=== PATIENT | female | born 1945 | race Caucasian/White ===

== ENCOUNTER → 2020-01-30 13:41 | Outpatient (BNVA) | payer MEDICARE, SELFPAY | PROVIDERS: PCP Internal Medicine; Referring Provider Internal Medicine; Visit Provider Internal Medicine | DX: I48.0 Paroxysmal atrial fibrillation (principal); Z51.81 Encounter for therapeutic drug level monitoring; Z79.01 Long term (current) use of anticoagulants | CPT/HCPCS: 85610 ==

== ENCOUNTER 2020-01-30 18:47 | Outpatient (REF) | payer MEDICARE, SELFPAY | END 2020-01-30 18:48 | disposition home or self-care (01) | LOC: HO.LNP 18:47 | PROVIDERS: Visit Provider Internal Medicine | DX: Z79.01 Long term (current) use of anticoagulants (principal) ==

== ENCOUNTER → 2020-02-27 13:56 | Outpatient (BNVA) | payer MEDICARE, SELFPAY | PROVIDERS: PCP Internal Medicine; Referring Provider Internal Medicine; Visit Provider Internal Medicine | DX: I48.0 Paroxysmal atrial fibrillation (principal); Z51.81 Encounter for therapeutic drug level monitoring; Z79.01 Long term (current) use of anticoagulants | CPT/HCPCS: 85610; 99211 ==

== ENCOUNTER → 2020-03-09 14:19 | Outpatient (BNVA) | payer MEDICARE, SELFPAY | PROVIDERS: PCP Internal Medicine; Visit Provider Internal Medicine | DX: I48.0 Paroxysmal atrial fibrillation (principal); Z51.81 Encounter for therapeutic drug level monitoring; Z79.01 Long term (current) use of anticoagulants | CPT/HCPCS: 85610; 99211 ==

== ENCOUNTER → 2020-03-15 14:07 | Outpatient (BNVA) | payer MEDICARE, SELFPAY | PROVIDERS: PCP Internal Medicine; Referring Provider Internal Medicine; Visit Provider Internal Medicine Cardiovascular Disease | DX: I48.0 Paroxysmal atrial fibrillation (principal); Z86.79 Personal history of other diseases of the circulatory system; Z79.01 Long term (current) use of anticoagulants; Z79.899 Other long term (current) drug therapy; Z45.018 Encounter for adjustment and management of other part of cardiac pacemaker | CPT/HCPCS: 93005; 99212 ==

== ENCOUNTER → 2020-03-23 14:14 | Outpatient (BNVA) | payer MEDICARE, SELFPAY | PROVIDERS: PCP Internal Medicine; Referring Provider Internal Medicine; Visit Provider Internal Medicine | DX: I48.0 Paroxysmal atrial fibrillation (principal); Z51.81 Encounter for therapeutic drug level monitoring; Z79.01 Long term (current) use of anticoagulants | CPT/HCPCS: 85610; 99211 ==

== ENCOUNTER → 2020-04-20 14:02 | Outpatient (BNVA) | payer MEDICARE, SELFPAY | PROVIDERS: PCP Internal Medicine; Visit Provider Internal Medicine | DX: I48.0 Paroxysmal atrial fibrillation (principal); Z51.81 Encounter for therapeutic drug level monitoring; Z79.01 Long term (current) use of anticoagulants | CPT/HCPCS: 85610; 99211 ==

== ENCOUNTER → 2020-05-18 14:02 | Outpatient (BNVA) | payer MEDICARE, SELFPAY | PROVIDERS: PCP Internal Medicine; Visit Provider Internal Medicine | DX: I48.0 Paroxysmal atrial fibrillation (principal); Z51.81 Encounter for therapeutic drug level monitoring; Z79.01 Long term (current) use of anticoagulants | CPT/HCPCS: 85610; 99211 ==

== ENCOUNTER → 2020-06-01 14:09 | Outpatient (BNVA) | payer MEDICARE, SELFPAY | PROVIDERS: PCP Internal Medicine; Visit Provider Internal Medicine | DX: I48.0 Paroxysmal atrial fibrillation (principal); Z51.81 Encounter for therapeutic drug level monitoring; Z79.01 Long term (current) use of anticoagulants | CPT/HCPCS: 85610; 99211 ==

== ENCOUNTER → 2020-06-28 14:04 | Outpatient (BNVA) | payer MEDICARE, SELFPAY | PROVIDERS: PCP Internal Medicine; Visit Provider Internal Medicine | DX: I48.0 Paroxysmal atrial fibrillation (principal); Z51.81 Encounter for therapeutic drug level monitoring; Z79.01 Long term (current) use of anticoagulants | CPT/HCPCS: 85610; 99211 ==

== ENCOUNTER → 2020-07-02 13:37 | Outpatient (BNVA) | payer MEDICARE, SELFPAY | PROVIDERS: PCP Internal Medicine; Visit Provider Internal Medicine | DX: I48.0 Paroxysmal atrial fibrillation (principal); Z51.81 Encounter for therapeutic drug level monitoring; Z79.01 Long term (current) use of anticoagulants | CPT/HCPCS: 85610; 99211 ==

== ENCOUNTER → 2020-07-13 13:57 | Outpatient (BNVA) | payer MEDICARE, SELFPAY | PROVIDERS: PCP Internal Medicine; Visit Provider Internal Medicine | DX: I48.0 Paroxysmal atrial fibrillation (principal); Z79.01 Long term (current) use of anticoagulants; Z51.81 Encounter for therapeutic drug level monitoring | CPT/HCPCS: 85610; 99211 ==

== ENCOUNTER → 2020-07-20 13:50 | Outpatient (BNVA) | payer MEDICARE, SELFPAY | PROVIDERS: PCP Internal Medicine; Visit Provider Internal Medicine | DX: I48.0 Paroxysmal atrial fibrillation (principal); Z51.81 Encounter for therapeutic drug level monitoring; Z79.01 Long term (current) use of anticoagulants | CPT/HCPCS: 85610; 99211 ==

== ENCOUNTER 2020-07-22 10:29 | Outpatient (REF) | payer MEDICARE, SELFPAY ==
[2020-07-22 10:54] LABS: MANUAL DIFF FLAG NO
[2020-07-22 11:03] LABS: Basophils Absolute Auto 0.1 X10*3/uL (0.0-0.2); Basophils Percent Auto 1.1 % (0-2); Eosinophils Absolute Auto 0.3 X10*3/uL (0.0-0.4); Eosinophils Percent Auto 5.6 % (0-4); Hematocrit 40.5 % (37-47); Hemoglobin 13.1 g/dl (12.0-16.0); Imm Gran Abs Auto 0.01 X10*3/uL (0.00-0.03); Imm Gran Pct Auto 0.2 % (0.0-0.4); Lymphocytes Percent Auto 43.6 % (20-40); Mean Corpuscular HGB Conc 32.3 g/dl (31.0-35.0); Mean Corpuscular Hemoglobin 30.9 pg (27.0-33.0); Mean Corpuscular Volume 95.5 fL (80-98); Mean Platelet Volume 8.4 fL (9.4-12.3); Monocytes Absolute Auto 0.3 X10*3/uL (0.1-1.2); Monocytes Percent Auto 6.7 % (2-11); Neutrophils Percent Auto 42.8 % (45-73); Platelet Count 260 X10*3/uL (160-400); Red Blood Count 4.24 X10*6/uL (4.20-5.50); Red Cell Distribution Width 13.2 % (11.0-16.0); White Blood Count 4.7 X10*3/uL (4.8-10.8)
[2020-07-22 11:31] LABS: Alanine Aminotransferase 19 U/L (0-31); Albumin Level 4.1 g/dL (3.5-5.0); Alkaline Phosphatase 76 U/L (39-117); Anion Gap 13 (12-20); Aspartate Amino Transferase 23 U/L (5-31); Bilirubin Total 0.4 mg/dL (0.0-1.0); Blood Urea Nitrogen 18 mg/dL (9-16); Calcium 8.8 mg/dL (8.4-10.2); Carbon Dioxide 30 mmol/L (22-29); Chloride 104 mmol/L (96-108); Cholesterol 213 mg/dL; Estimated Glomerular Filt Rate > 60; Glucose Random 104 mg/dL (60-115); HDL Cholesterol 94 mg/dL; LDL Cholesterol Calculated 103 mg/dl; Potassium 4.5 mmol/L (3.3-5.1); Sodium 142 mmol/L (135-145); Total Protein 6.5 g/dL (6.5-8.0); Triglycerides 80 mg/dL
[2020-07-22 11:44] LABS: Free T4 (Free Thyroxine) 1.01 ng/dL (0.71-1.85); Thyroid Stimulating Hormone 3.84 uIU/mL (0.32-4.0); Vitamin D 25-OH Total 77.3 ng/mL (>30)
[2020-07-22 12:03] LABS: Vitamin B12 792 pg/mL (200-900)
== END 2020-07-22 10:30 | disposition home or self-care (01) ==
LOC: HO.LAB 10:29
PROVIDERS: PCP Internal Medicine; Visit Provider Internal Medicine
DX: E78.00 Pure hypercholesterolemia, unspecified (principal)
CPT/HCPCS: 36415; 80053; 80061; 82306; 82607; 82746; 84439; 84443; 85025

== ENCOUNTER → 2020-08-03 14:04 | Outpatient (BNVA) | payer MEDICARE, SELFPAY | PROVIDERS: PCP Internal Medicine; Visit Provider Internal Medicine | DX: I48.0 Paroxysmal atrial fibrillation (principal); Z79.01 Long term (current) use of anticoagulants; Z51.81 Encounter for therapeutic drug level monitoring | CPT/HCPCS: 85610; 99211 ==

== ENCOUNTER → 2020-08-20 14:23 | Outpatient (BNVA) | payer MEDICARE, SELFPAY | PROVIDERS: PCP Internal Medicine; Visit Provider Internal Medicine | DX: I48.0 Paroxysmal atrial fibrillation (principal); Z79.01 Long term (current) use of anticoagulants; Z51.81 Encounter for therapeutic drug level monitoring | CPT/HCPCS: 85610; 99211 ==

== ENCOUNTER → 2020-09-03 14:03 | Outpatient (BNVA) | payer MEDICARE, SELFPAY | PROVIDERS: PCP Internal Medicine; Visit Provider Internal Medicine | DX: I48.0 Paroxysmal atrial fibrillation (principal); Z79.01 Long term (current) use of anticoagulants; Z51.81 Encounter for therapeutic drug level monitoring | CPT/HCPCS: 85610; 99211 ==

== ENCOUNTER → 2020-09-06 09:38 | Outpatient (BNVA) | payer MEDICARE, SELFPAY | PROVIDERS: PCP Internal Medicine; Referring Provider Internal Medicine; Visit Provider Internal Medicine Cardiovascular Disease | DX: Z45.018 Encounter for adjustment and management of other part of cardiac pacemaker (principal); I48.0 Paroxysmal atrial fibrillation | CPT/HCPCS: 93005; 99212 ==

== ENCOUNTER → 2020-09-21 13:56 | Outpatient (BNVA) | payer MEDICARE, SELFPAY | PROVIDERS: PCP Internal Medicine; Visit Provider Internal Medicine | DX: I48.0 Paroxysmal atrial fibrillation (principal); Z51.81 Encounter for therapeutic drug level monitoring; Z79.01 Long term (current) use of anticoagulants | CPT/HCPCS: 85610; 99211 ==

== ENCOUNTER → 2020-10-05 11:23 | Outpatient (BNVA) | payer MEDICARE, SELFPAY | PROVIDERS: PCP Internal Medicine; Visit Provider Internal Medicine | DX: I48.0 Paroxysmal atrial fibrillation (principal); Z51.81 Encounter for therapeutic drug level monitoring; Z79.01 Long term (current) use of anticoagulants | CPT/HCPCS: 85610; 99211 ==

== ENCOUNTER → 2020-10-19 11:09 | Outpatient (BNVA) | payer MEDICARE, SELFPAY | PROVIDERS: PCP Internal Medicine; Visit Provider Internal Medicine | DX: I48.0 Paroxysmal atrial fibrillation (principal); Z51.81 Encounter for therapeutic drug level monitoring; Z79.01 Long term (current) use of anticoagulants | CPT/HCPCS: 85610; 99211 ==

== ENCOUNTER → 2020-10-28 07:43 | Outpatient (REF) | payer MEDICARE, SELFPAY ==
--- NOTE | ~2020-10-28 | NM_ITS ---
Myocardial perfusion study Indication: Nonsustained ventricular tachycardia to evaluate for myocardial ischemia Technique: The patient was brought in for a Lexiscan perfusion study on 10/28/2020. Patient performed low-level exercise and was injected 0.4 mg of Lexiscan intravenously. Within a minute of injection, 25 mCi of sestamibi was given intravenously. Images were obtained using the SPECT gamma camera interlaced with the gating device. Images were obtained in supine position. Resting perfusion study was performed on 11/02/2020. Patient was administered 25 mCi of sestamibi intravenously at rest. Images were then obtained in supine position. Images obtained with and without CT attenuation. Total DLP 80 mGy-cm. Images were processed with the software and compared side to side in short axis, horizontal long axis and vertical long axis views. Findings: The stress perfusion study showed nonattenuated images show mildly reduced uptake in the distal anterior and apex of the LV myocardium. Attenuation corrected images show mildly reduced uptake in the distal anterior and apex of the LV myocardium.. The gated study shows normal LV systolic function with calculated LVEF of 67%. LV cavity is normal in size. The gated study shows normal systolic wall thickening and contraction of segments. Resting study shows nonattenuated images show moderately reduced uptake in the distal anterior and moderately reduced uptake in the apex of the LV myocardium. Attenuation corrected images show mildly reduced uptake in the distal anterior and apex of the LV myocardium.. Gating at rest reveals normal systolic wall motion with ejection fraction at 59%. The findings are consistent with no clear reversible defect suggestive of ischemia. Fixed distal anterior and apical defect most likely due to attenuation artifact. Suggestive normal myocardial perfusion. NM/NM bryce perf SPECT rest & str Impression: 1. Myocardial perfusion imaging study shows likely normal myocardial perfusion 2. Gated LVEF is 67% 3. Transient ischemic dilatation not present EKG is nondiagnostic for ischemia
--- NOTE | 2020-10-28 07:46 | CA_ITS ---
Transthoracic Echocardiogram Patient (Last, First, Middle): Erika Melchor R Gender: Female Date of : 1945 Age: 75 Procedure Date: 10/28/2020 Procedure Type: Transthoracic Echocardiogram Location: OP Height: 172.72 cm Weight: 71.67 kg BSA: 1.85 m2 Heart Rate: bpm BP: 118 / 75 mmHg Agronomy Research Manager: HEATH Referring MD: Zackary Kingston MD Uniform Room Attendant: Zackary Kingston MD Symptoms: I48.0 - Paroxysmal atrial fibrillation Study Quality: Good ECG Rhythm: Sinus Conclusions: - 1. Normal LV systolic function with impaired relaxation filling pattern 2. Normal cardiac valvular Doppler 3. Normal RV systolic pressure 4. No pericardial effusion Findings Left Ventricle Normal left ventricular size, thickness, and systolic function. The visually estimated ejection fraction is between 60-65%. Spectral Doppler is indicative of an impaired relaxation filling pattern. E/E prime ratio is between 8 and 15 consistent with indeterminate filling pressures. Right Ventricle Normal right ventricular cavity size and systolic function. There is a pacemaker wire seen in the right ventricle. Atria Both atria are normal in size. There is lipomatous hypertrophy of the interatrial septum. There is no evidence of interatrial shunt. A pacemaker wire is identified in the right atrium. Aortic Valve There is mild calcification of the aortic valve. There is no aortic valve stenosis. There is no aortic valve regurgitation. Mitral Valve There is mild anterior and posterior mitral leaflet thickening. There is trace mitral valve regurgitation. There is no mitral valve stenosis. Pulmonic Valve The pulmonic valve was not well visualized. Tricuspid Valve Likely normal tricuspid valve structure and function. There is mild tricuspid valve regurgitation. The right ventricular systolic pressure is normal. The right ventricular systolic pressure is 18 mmHg. Normal right atrial pressure. There is no evidence of pulmonary hypertension. Great Vessels All visible segments of the aorta are normal in size. The pulmonary artery was not well visualized. Venous The inferior vena cava is normal in size and collapses greater than 50% with inspiration. Pericardium/Pleural There is no evidence of pericardial effusion. Prior Study Comparison No significant change compared to prior study dated: 02/26/2019. Measurements 2D Linear Measurements IVSd: 0.92 0.6-0.9/0.6-1.0 cm LVIDd: 4.26 3.9-5.3/4.2-5.9 cm LVIDd Index: 2.30 2.4-3.2/2.2-3.1 cm/m2 LVIDs: 2.98 2.0-3.6 cm LVPWd: 1.11 0.7-1.1 cm Ao Root: 3.10 2.1-3.5 cm LA Diam: 2.80 2.7-3.8/3.0-4.0 cm LAIDs Index: 1.51 1.5-2.3 cm/m2 LV Mass: 178.66 67-162/88-224 g LV Mass Index: 96.57 43-95/49-115 g/m2 LVOT Diam: 2.00 3.0+(-)1.3 cm 2D Systolic Function EF 4C: 62.10 >55% EF 2C: 57.80 >55% EF BiP: 58.80 >55% Mitral Valve MV Pk E: 0.56 MV PK A: 0.93 MV Decel Time: 254.00 E/A: 0.60 E'Lateral: 5.55 E'Medial: 5.55 E/E' Med: 10.10 E/E' Lat: 10.10 PHT: 74.00 MVA PHT: 2.97 Decel [place]: 2.21 Aortic Valve AoV Pk Mathew: 1.38 AoV Pk Grad: 8.00 LVOT LVOT Pk Mathew: 1.06 LVOT Mn Mathew: 0.62 LVOT VTI: 0.21 LVOT Pk Grad: 4.00 LVOT Mn Grad: 2.00 LVOT Diam: 2.00 LVOT Area: 3.14 Diastolic Function MV Pk E: 0.56 MV Pk A: 0.93 E/A: 0.60 E'Medial: 5.55 E/E' Med: 10.10 E' Laterial: 5.55 E/E' Lat: 10.10 Tricuspid Valve TR Pk Mathew: 1.95 TR Pk Grad: 15.00 RA Press: 3.00 RVSP: 18.00 Great Vessels Aorta Ao Root-2D: 3.10 2.0-3.7 cm Ao Asc: 3.10 2.1-3.4 cm Ao Arch: 2.70 Updated in Other Vendor System with Status of Final Zackary Kingston MD electronically signed on 10/29/2020 1:49:42 PM with status of Final
--- NOTE | 2020-10-28 07:47 | CA_ITS ---
Acquisition Time: 2020-10-28 08:34:43 Total Exercise Time: 00:02:00 Test Indications: Screening for CAD Medications: SEE H Protocol: LEXISCAN Max HR: 096 BPM 66% of Pred: 145 BPM Max BP: 124/072 mmHG Max Work Load: 1.0 METS Pharmacological stress test with Lexiscan injection, while sitting and kicking her legs, without anginal symptoms, with isolated PVCs and PACs and one ventricular cuplet, with normotensive response to injection, with nondiagnostic EKG for ischemia. Nuclear images pending. Test reviewed with Dr Kingston. Referred By: Christel Clark Overread By: CHRISTEL CLARK
== END ==
LOC: HO.CARD 07:43
PROVIDERS: Visit Provider Nurse Practitioner Family
DX: I48.0 Paroxysmal atrial fibrillation (principal); I47.2 Ventricular tachycardia
CPT/HCPCS: 78452; 93017; 93306; A9500; J0280; J2785

== ENCOUNTER → 2020-11-09 11:10 | Outpatient (BNVA) | payer MEDICARE, SELFPAY | PROVIDERS: PCP Internal Medicine; Visit Provider Internal Medicine | DX: I48.0 Paroxysmal atrial fibrillation (principal); Z51.81 Encounter for therapeutic drug level monitoring; Z79.01 Long term (current) use of anticoagulants | CPT/HCPCS: 85610; 99211 ==

== ENCOUNTER → 2020-11-23 11:23 | Outpatient (BNVA) | payer MEDICARE, SELFPAY | PROVIDERS: PCP Internal Medicine; Visit Provider Internal Medicine | DX: I48.0 Paroxysmal atrial fibrillation (principal); Z51.81 Encounter for therapeutic drug level monitoring; Z79.01 Long term (current) use of anticoagulants | CPT/HCPCS: 85610; 99211 ==

== ENCOUNTER → 2020-12-14 11:20 | Outpatient (BNVA) | payer MEDICARE, SELFPAY | PROVIDERS: PCP Internal Medicine; Visit Provider Internal Medicine | DX: I48.0 Paroxysmal atrial fibrillation (principal); Z51.81 Encounter for therapeutic drug level monitoring; Z79.01 Long term (current) use of anticoagulants | CPT/HCPCS: 85610; 99211 ==

== ENCOUNTER 2020-12-17 13:45 | Outpatient (REF) | payer MEDICARE, SELFPAY ==
--- NOTE | ~2020-12-17 | MM_ITS ---
EXAMINATION: MM SCREENING DIGITAL BREAST TOMOSYNTHESIS, BILATERAL CLINICAL INFORMATION: Screening. Asymptomatic. The lifetime risk of breast cancer based on the Tyrer-Cuzick Model is 7%. COMPARISON: Mammography: 10/08/2018, 09/07/2017, 08/22/2016 TECHNIQUE: Digital breast tomosynthesis is performed in both the craniocaudal and mediolateral oblique views along with computer-aided detection (CAD). Synthesized 2D images are generated from the tomosynthesis. FINDINGS: The breasts are almost entirely fatty (ACR BI-RADS breast composition Category a). There are no significant masses, abnormal calcifications, or other abnormalities. Pacemaker generator overlies and partly obscures left axilla on MLO view. There is a dermal lesion again noted overlying lower inner quadrant right breast. No significant changes. MM/MM tomosynthesis screening BI IMPRESSION: No mammographic evidence of malignancy. ASSESSMENT: BI-RADS 2: Benign RECOMMENDATION: Routine annual mammography screening. This patient's information was entered into a reminder system with a target due date for their next mammogram.
--- NOTE | ~2020-12-17 | MM_ITS ---
EXAMINATION: BONE DENSITOMETRY CLINICAL INDICATION: Other specified disorders of bone density and structure. COMPARISON: Previous BD dated 08/22/2016 and baseline BD dated 01/23/2013. TECHNIQUE: Using a [employer] DXA System (software version: 13.1) manufactured by [employer], dual-energy x-ray absorptiometry was performed of the spine and left hip. The images are of good technical quality. Summary results are attached. FINDINGS: AP SPINE L1-L2 (excluding L3 and L4): The data of L1-L4 has been changed to exclude the L3 and L4 vertebral bodies, because degenerative changes at these levels may cause overestimation of lumbar spine density. Current: BMD 0.982 g/cm2, Z-score 0.0, T-score -1.5, osteopenia, 1.9% decrease from previous, 6.2% decrease from baseline (<5% change is not significant). Prior: BMD 1.001 g/cm2. Baseline: BMD 1.047 g/cm2. LEFT FEMUR, NECK: Current: BMD 0.805 g/cm2, Z-score 0.1, T-score -1.7, osteopenia. Prior: BMD 0.807 g/cm2. Baseline: BMD 0.850 g/cm2. LEFT FEMUR, TOTAL: Current: BMD 0.842 g/cm2, Z-score 0.3, T-score -1.3, osteopenia, 1.9% increase from previous, 3.1% increase from baseline (<5% change is not significant). Prior: BMD 0.826 g/cm2. Baseline: BMD 0.817 g/cm2. IDENTIFIED RISK FACTORS: Menopause. HISTORY OF FRACTURE: None listed. MEDICATIONS: Vitamin D. MM/XR DEXA axial skeleton IMPRESSION: 1. DIAGNOSIS: Osteopenia based on the lowest T-score value of -1.7 in the femoral neck applying World Health Organization criteria. 2. 10-YEAR FRACTURE RISK PREDICTION, FRAX: Major osteoporotic fracture (clinical spine, forearm, hip or shoulder) 12.5%. Hip fracture 2.9%. 3. Treatment Recommendations: NOF guidelines recommend consideration for treatment in postmenopausal women and men age 50 and older presenting with the following: -A hip or vertebral (clinical or morphometric) fracture. -T-score less than or equal to -2.5 at the femoral neck or spine after appropriate evaluation to exclude secondary causes. -Low bone mass at the hip or spine and a 10-year fracture probability by FRAX of greater than or equal to 3% for hip fracture or greater than or equal to 20% for major osteoporotic fracture based on the [place] adapted WHO algorithm. 4. Other Recommendations: All treatment decisions require clinical judgment and consideration of individual patient factors, including patient preferences, comorbidities, previous drug use, risk factors not captured in the FRAX model (e.g. frailty, falls, vitamin D deficiency, increased bone turnover, interval significant decline in bone density) and possible under or overestimation of fracture risk by FRAX. Additional medical evaluation for secondary cause of low bone mineral density may be appropriate. FUTURE SCAN RECOMMENDATION: People with diagnosed cases of osteoporosis or at high risk for fracture should have regular bone mineral density tests. For patients eligible for Medicare, routine testing is allowed once every 2 years. The testing frequency can be increased to one year for patients who have rapidly progressing disease, those who are receiving or discontinuing medical therapy to restore bone mass, or have additional risk factors.
== END 2020-12-17 13:46 | disposition home or self-care (01) ==
LOC: HO.MAMMO 13:45
PROVIDERS: Visit Provider Internal Medicine
DX: Z12.31 Encounter for screening mammogram for malignant neoplasm of breast (principal); Z13.820 Encounter for screening for osteoporosis; M85.80 Other specified disorders of bone density and structure, unspecified site; Z78.0 Asymptomatic menopausal state; Z79.899 Other long term (current) drug therapy
CPT/HCPCS: 77063; 77067; 77080

== ENCOUNTER → 2021-01-11 11:25 | Outpatient (BNVA) | payer MEDICARE, SELFPAY | PROVIDERS: PCP Internal Medicine; Visit Provider Internal Medicine | DX: I48.0 Paroxysmal atrial fibrillation (principal); Z51.81 Encounter for therapeutic drug level monitoring; Z79.01 Long term (current) use of anticoagulants | CPT/HCPCS: 85610; 99211 ==

== ENCOUNTER 2021-02-01 12:42 | Outpatient (REF) | payer MEDICARE, SELFPAY ==
[2021-02-01 12:59] LABS: MANUAL DIFF FLAG NO
[2021-02-01 13:29] LABS: Basophils Percent Auto 0.7 % (0-2); Eosinophils Absolute Auto 0.1 X10*3/uL (0.0-0.4); Eosinophils Percent Auto 3.2 % (0-4); Hematocrit 42.1 % (37-47); Hemoglobin 13.6 g/dl (12.0-16.0); Imm Gran Abs Auto 0.01 X10*3/uL (0.00-0.03); Imm Gran Pct Auto 0.2 % (0.0-0.4); Lymphocytes Absolute Auto 1.4 X10*3/uL (1.2-4.9); Lymphocytes Percent Auto 31.5 % (20-40); Mean Corpuscular HGB Conc 32.3 g/dl (31.0-35.0); Mean Corpuscular Volume 95.9 fL (80-98); Mean Platelet Volume 8.9 fL (9.4-12.3); Monocytes Absolute Auto 0.5 X10*3/uL (0.1-1.2); Monocytes Percent Auto 11.9 % (2-11); Neutrophils Absolute Auto 2.3 X10*3/uL (2.0-8.3); Neutrophils Percent Auto 52.5 % (45-73); Platelet Count 242 X10*3/uL (160-400); Red Blood Count 4.39 X10*6/uL (4.20-5.50); Red Cell Distribution Width 13.2 % (11.0-16.0); White Blood Count 4.4 X10*3/uL (4.8-10.8)
[2021-02-01 13:53] LABS: Alanine Aminotransferase 24 U/L (0-31); Albumin Level 4.2 g/dL (3.5-5.0); Alkaline Phosphatase 82 U/L (39-117); Anion Gap 12 (12-20); Aspartate Amino Transferase 25 U/L (5-31); Bilirubin Total 0.5 mg/dL (0.0-1.0); Blood Urea Nitrogen 13 mg/dL (9-16); Calcium 9.4 mg/dL (8.4-10.2); Carbon Dioxide 31 mmol/L (22-29); Chloride 103 mmol/L (96-108); Cholesterol 208 mg/dL; Estimated Glomerular Filt Rate > 60; Glucose Random 106 mg/dL (60-115); HDL Cholesterol 87 mg/dL; LDL Cholesterol Calculated 105 mg/dl; Potassium 4.6 mmol/L (3.3-5.1); Sodium 141 mmol/L (135-145); Total Protein 6.7 g/dL (6.5-8.0); Triglycerides 82 mg/dL
[2021-02-01 13:57] LABS: B Type Natriuretic Peptide 41 pg/mL (<100)
[2021-02-01 14:12] LABS: Free T4 (Free Thyroxine) 0.95 ng/dL (0.71-1.85); Thyroid Stimulating Hormone 2.53 uIU/mL (0.32-4.0); Vitamin D 25-OH Total 77.8 ng/mL (>30)
== END 2021-02-01 12:43 | disposition home or self-care (01) ==
LOC: HO.LAB 12:42
PROVIDERS: PCP Internal Medicine; Visit Provider Internal Medicine
DX: I48.0 Paroxysmal atrial fibrillation (principal); E78.00 Pure hypercholesterolemia, unspecified; M25.512 Pain in left shoulder
CPT/HCPCS: 36415; 80053; 80061; 82306; 83880; 84439; 84443; 85025

== ENCOUNTER → 2021-02-09 11:43 | Outpatient (BNVA) | payer MEDICARE, SELFPAY | PROVIDERS: PCP Internal Medicine; Visit Provider Internal Medicine | DX: I48.0 Paroxysmal atrial fibrillation (principal); Z51.81 Encounter for therapeutic drug level monitoring; Z79.01 Long term (current) use of anticoagulants | CPT/HCPCS: 85610; 99211 ==

== ENCOUNTER → 2021-03-09 11:21 | Outpatient (BNVA) | payer MEDICARE, SELFPAY | PROVIDERS: PCP Internal Medicine; Visit Provider Internal Medicine | DX: I48.0 Paroxysmal atrial fibrillation (principal); Z51.81 Encounter for therapeutic drug level monitoring; Z79.01 Long term (current) use of anticoagulants | CPT/HCPCS: 85610; 99211 ==

== ENCOUNTER 2021-03-14 10:50 | Outpatient (REF) | payer MEDICARE, SELFPAY ==
[2021-03-14 12:16] LABS: Hematocrit 38.7 % (37.0-47.0); Hemoglobin 12.5 g/dl (12.0-16.0); Mean Corpuscular HGB Conc 32.3 g/dl (31.0-35.0); Mean Corpuscular Hemoglobin 30.6 pg (27.0-33.0); Mean Corpuscular Volume 94.6 fL (80.0-98.0); Mean Platelet Volume 8.6 fL (9.4-12.3); Platelet Count 344 X10*3/uL (160-400); Red Blood Count 4.09 X10*6/uL (4.20-5.50); Red Cell Distribution Width 13.2 % (11.0-16.0); White Blood Count 5.5 X10*3/uL (4.8-10.8)
[2021-03-14 12:44] LABS: Anion Gap 11 (12-20); Blood Urea Nitrogen 12 mg/dL (9-16); Carbon Dioxide 30 mmol/L (22-29); Chloride 104 mmol/L (96-108); Estimated Glomerular Filt Rate > 60; Glucose Random 106 mg/dL (60-115); Potassium 5.1 mmol/L (3.3-5.1); Sodium 140 mmol/L (135-145)
== END 2021-03-14 10:51 | disposition home or self-care (01) ==
LOC: HO.LAB 10:50
PROVIDERS: PCP Internal Medicine; Referring Provider Internal Medicine; Visit Provider Internal Medicine Cardiovascular Disease
DX: I48.0 Paroxysmal atrial fibrillation (principal); Z95.0 Presence of cardiac pacemaker
CPT/HCPCS: 36415; 80048; 85027; 93005; 99212

== ENCOUNTER 2021-04-07 11:00 | Outpatient (RCR) | payer MEDICARE, SELFPAY ==
--- NOTE | 2021-03-01 15:24 | MHC.PT.EP ---
[facility] [place] Office [place] Office [place] Office [address] Marcelo Navarro [address] [phone] F: [phone] F: [phone] F: [phone] F: [phone] Physical Therapy Plan of Care Date of Evaluation: Date of Surgery: Diagnosis: Assessment: 76 YO FEMALE REF TO PT FOR LEFT SH PAIN- GRAD INCR x 2 YRS AFTER CARING FOR HER WHO HAS SINCE - SHE HAS (+) PACEMAKER, AF, AND IS ON WARFARIN- Pt HAS DECR POSTURAL AWARENESS, ASYMM IN SH/ UPPER TRUNK, DECR AROM Lt SH W PAIN- (+) TTP Lt DELT/ TERES/ DELT TUB. Pt FUNCTIONALLY HAS DIFFIC SLEEPING, LIFTING AND INCR ADLs W Lt UE, ESPEC DONNING HER BRA/ IR POSTERIORLY. Pt HAS (+) NEER'S SIGN LEFT- SHE IS A GOOD PT CANDIDATE TO ADDRESS PAIN MGMT AND SELF- CARE Frequency and Duration: The patient will be seen 2 x WK x 5 WKS Short Term Goals: Pt'S Lt SHOULDER PAIN DECR TO 2-3/10 W REG ADLs IN 2 WKS Pt DEMON Lt SH IR POST TO T10 LEVEL AND WFL Lt SH ABD/ FLEX IN 2 WKS Pt INDEP SELF CORRECT POSTURE/ PROPER ACTIV OF PARASCAP MM IN 2 WKS Jail Goals: Pt INDEP HEP AND SELF-SX MGMT TECHN IN 5 WKS Pt's LEFT SH STRENGTH IMPROVED BY 1/2-1 GRADE IN 5 WKS Pt RESUME REG ADLs EVIDENT IN IMPROVED SPADI SCORE BY 8-10 POINTS (52/130 AT EVAL) IN 5 WKS Treatment Plan: Modalities to reduce pain, spasms and effusion. Manual therapy to restore motion and function. Therapeutic exercise to improve strength and flexibility. Neuromuscular re-education for posture and balance. Therapeutic activities to return to functional activities of daily living. Electronically signed by: Laura Gutiérrez,PT Please sign and return to therapist. Thank you for your referral.
--- NOTE | 2021-04-07 11:55 | MHC.PT.DC ---
[facility] [place] Office [place] Office [place] Office [address] Marcelo Navarro [address] [phone] F: [phone] F: [phone] F: [phone] F: [phone] Physical Therapy Discharge Report Diagnosis: LEFT SHOULDER PAIN Date of Surgery: Date of Evaluation: 03/01/21 Date of Discharge: 04/07/21 Treatments to Date: 11 Cancellations to Date: 0 No Shows to Date: 0 Discharge Status: Achieved Goals Improved Function Independent with HEP Discharge Summary: Pt MET PT GOALS FOR LEFT SH AT THIS TIME-SHE HAS RESUMED HER REG ADLs (SPADI SCORE 23/130 AND AT EVAL 52/130), DEMON WFL AROM Lt SH, IMPROVED POSTERIOR RC / SCAP MUSCLE STRENGTH; SHE IS INDEP W HEP AND SELF-SX MGMT STRATEGIES AT THIS TIME- SHE IS READY FOR D/C FROM PT Electronically signed by: Laura Gutiérrez,PT Please sign and return to therapist. Thank you for your referral.
== END 2021-04-07 11:56 | disposition home or self-care (01) ==
LOC: HO.PT 11:00
PROVIDERS: PCP Internal Medicine; Visit Provider Internal Medicine
DX: M25.512 Pain in left shoulder (principal)
CPT/HCPCS: 97110; 97140; 97161

== ENCOUNTER 2021-08-22 10:07 | Outpatient (REF) | payer MEDICARE, SELFPAY ==
[2021-08-22 10:24] LABS: MANUAL DIFF FLAG NO
[2021-08-22 11:06] LABS: Basophils Percent Auto 0.6 % (0-2); Eosinophils Absolute Auto 0.1 X10*3/uL (0.0-0.4); Eosinophils Percent Auto 2.5 % (0-4); Hematocrit 39.6 % (37.0-47.0); Hemoglobin 12.9 g/dl (12.0-16.0); Imm Gran Abs Auto 0.01 X10*3/uL (0.00-0.03); Imm Gran Pct Auto 0.2 % (0.0-0.4); Lymphocytes Percent Auto 42.6 % (20-40); Mean Corpuscular HGB Conc 32.6 g/dl (31.0-35.0); Mean Corpuscular Hemoglobin 30.2 pg (27.0-33.0); Mean Corpuscular Volume 92.7 fL (80.0-98.0); Mean Platelet Volume 8.8 fL (9.4-12.3); Monocytes Absolute Auto 0.4 X10*3/uL (0.1-1.2); Monocytes Percent Auto 8.9 % (2-11); Neutrophils Absolute Auto 2.1 x10*3/uL (2.0-8.3); Neutrophils Percent Auto 45.2 % (45-73); Platelet Count 273 X10*3/uL (160-400); Red Blood Count 4.27 X10*6/uL (4.20-5.50); White Blood Count 4.7 X10*3/uL (4.8-10.8)
[2021-08-22 11:19] LABS: Estimated Average Glucose 120 mg/dL; Hemoglobin A1c % 5.8 %
[2021-08-22 11:37] LABS: Alanine Aminotransferase 13 U/L (0-31); Alkaline Phosphatase 76 U/L (39-117); Anion Gap 10 (12-20); Aspartate Amino Transferase 21 U/L (5-31); Bilirubin Total 0.8 mg/dL (0.0-1.0); Blood Urea Nitrogen 14 mg/dL (9-16); Calcium 9.2 mg/dL (8.4-10.2); Carbon Dioxide 30 mmol/L (22-29); Chloride 104 mmol/L (96-108); Estimated Glomerular Filt Rate > 60; Glucose Random 104 mg/dL (60-115); Potassium 4.7 mmol/L (3.3-5.1); Sodium 139 mmol/L (135-145); Total Protein 6.4 g/dL (6.5-8.0)
== END 2021-08-22 10:08 | disposition home or self-care (01) ==
LOC: HO.LAB 10:07
PROVIDERS: PCP Internal Medicine; Visit Provider Internal Medicine
DX: K21.9 Gastro-esophageal reflux disease without esophagitis (principal)
CPT/HCPCS: 36415; 80053; 83036; 85025

== ENCOUNTER → 2021-09-19 10:51 | Outpatient (BNVA) | payer MEDICARE, SELFPAY | PROVIDERS: PCP Internal Medicine; Referring Provider Internal Medicine; Visit Provider Internal Medicine Cardiovascular Disease | DX: Z45.018 Encounter for adjustment and management of other part of cardiac pacemaker (principal); I48.0 Paroxysmal atrial fibrillation | CPT/HCPCS: 93280; 99212 ==

== ENCOUNTER 2021-12-19 13:43 | Outpatient (REF) | payer MEDICARE, SELFPAY ==
--- NOTE | ~2021-12-19 | MM_ITS ---
EXAMINATION: MM SCREENING DIGITAL BREAST TOMOSYNTHESIS, BILATERAL CLINICAL INFORMATION: Screening. Asymptomatic. The lifetime risk of breast cancer based on the Tyrer-Cuzick Model is 6%. COMPARISON: Mammography: December 17, 2020 and studies dating back to May 08, 2011 TECHNIQUE: Digital breast tomosynthesis is performed in both the craniocaudal and mediolateral oblique views along with computer-aided detection (CAD). Synthesized 2D images are generated from the tomosynthesis. FINDINGS: The breasts are almost entirely fatty (ACR BI-RADS breast composition Category a). There are no significant masses, abnormal calcifications, or other abnormalities. Left chest wall pacemaker powerpack seen. MM/MM tomosynthesis screening BI IMPRESSION: No significant changes from prior exam. ASSESSMENT: BI-RADS 1: Negative RECOMMENDATION: Routine annual mammography screening. This patient's information was entered into a reminder system with a target due date for their next mammogram.
== END 2021-12-19 13:44 | disposition home or self-care (01) ==
LOC: HO.MAMMO 13:43
PROVIDERS: PCP Internal Medicine; Visit Provider Internal Medicine
DX: Z12.31 Encounter for screening mammogram for malignant neoplasm of breast (principal)
CPT/HCPCS: 77063; 77067

== ENCOUNTER → 2021-12-30 12:37 | Outpatient (REF) | payer MEDICARE, SELFPAY ==
--- NOTE | 2021-12-30 12:41 | CA_ITS ---
Transthoracic Echocardiogram Patient (Last, First, Middle): Erika Melchor R Gender: Female Date of : 1945 Age: 76 Procedure Date: 12/30/2021 Procedure Type: Transthoracic Echocardiogram Location: OP Height: 172.72 cm Weight: 72.58 kg BSA: 1.86 m2 Heart Rate: bpm BP: 115 / 78 mmHg Pharmacy Informatics Manager: TO Referring MD: Christel Clark CREDIT CONTROL ASSISTANT-Breanna Graduate Rn: Zackary Kingston MD Symptoms: I47.2 - Ventricular tachycardia Study Quality: Fair ECG Rhythm: Sinus Conclusions: - 1. Normal LV systolic function with impaired relaxation filling pattern 2. Mild mitral regurgitation 3. Normal RV systolic pressure 4. No gross pericardial effusion Findings Left Ventricle Normal left ventricular size, thickness, and systolic function. The visually estimated ejection fraction is between 55-60%. Spectral Doppler is indicative of an impaired relaxation filling pattern. E/E prime ratio is <8, consistent with normal filling pressures. Evidence suggests grade I (mild) diastolic dysfunction. Right Ventricle Normal right ventricular cavity size and systolic function. There is a pacemaker wire seen in the right ventricle. Atria The left atrium is likely dilated. There is no evidence of interatrial shunt. The right atrium is normal in size. A pacemaker wire is identified in the right atrium. Aortic Valve There is mild thickening of the aortic valve. There is no aortic valve stenosis. There is no aortic valve regurgitation. Mitral Valve There is mild anterior and posterior mitral leaflet thickening. There is bowing of the posterior mitral leaflet without obvious prolapse. There is mild mitral valve regurgitation. Pulmonic Valve The pulmonic valve was not well visualized. Tricuspid Valve Likely normal tricuspid valve structure and function. There is trace tricuspid valve regurgitation. The right ventricular systolic pressure is normal. The right ventricular systolic pressure is 19 mmHg. Normal right atrial pressure. There is no evidence of pulmonary hypertension. Great Vessels All visible segments of the aorta are normal in size. The pulmonary artery was not well visualized. Venous The inferior vena cava is normal in size and collapses greater than 50% with inspiration. Pericardium/Pleural There is no evidence of pericardial effusion. Prior Study Comparison Changes noted compared to prior study dated: 10/28/2020. Mild mitral regurgitation is noted Measurements 2D Linear Measurements IVSd: 0.77 0.6-0.9/0.6-1.0 cm LVIDd: 5.04 3.9-5.3/4.2-5.9 cm LVIDd Index: 2.71 2.4-3.2/2.2-3.1 cm/m2 LVIDs: 3.51 2.0-3.6 cm LVPWd: 0.78 0.7-1.1 cm LA Diam: 3.20 2.7-3.8/3.0-4.0 cm LAIDs Index: 1.72 1.5-2.3 cm/m2 LV Mass: 164.09 67-162/88-224 g LV Mass Index: 88.22 43-95/49-115 g/m2 LVOT Diam: 2.20 3.0+(-)1.3 cm 2D Systolic Function EF 4C: 47.50 >55% EF 2C: 51.70 >55% Mitral Valve MV Pk E: 0.60 MV PK A: 0.78 MV Decel Time: 298.00 E/A: 0.80 E'Lateral: 4.68 E'Medial: 3.37 E/E' Med: 17.80 E/E' Lat: 12.80 PHT: 87.00 MVA PHT: 2.53 Decel [place]: 2.01 Aortic Valve AoV Pk Mathew: 1.62 AoV Mn Mathew: 1.10 AoV VTI: 0.36 AoV Pk Grad: 10.00 Aov Mn Grad: 5.00 JOSR Cont.VTI: 1.86 LVOT LVOT Pk Mathew: 0.82 LVOT Mn Mathew: 0.53 LVOT VTI: 0.17 LVOT Pk Grad: 3.00 LVOT Mn Grad: 1.00 LVOT Diam: 2.20 LVOT Area: 3.80 Diastolic Function MV Pk E: 0.60 MV Pk A: 0.78 E/A: 0.80 E'Medial: 3.37 E/E' Med: 17.80 E' Laterial: 4.68 E/E' Lat: 12.80 Right Ventricle TAPSE (mm): 25.10 TVS' Mathew: 10.30 Tricuspid Valve TR Pk Mathew: 2.00 TR Pk Grad: 16.00 RA Press: 3.00 RVSP: 19.00 Great Vessels Aorta Sinus of Valsalva: 3.56 2.0-3.[address] [place]: 2.61 1.7-3.4 cm Ao Asc: 3.30 2.1-3.4 cm Updated in Other Vendor System with Status of Final Zackary Kingston MD electronically signed on 01/01/2022 10:04:34 AM with status of Final
== END ==
LOC: HO.CARD 12:37
PROVIDERS: PCP Internal Medicine; Visit Provider Nurse Practitioner Family
DX: I47.2 Ventricular tachycardia (principal); I48.0 Paroxysmal atrial fibrillation; Z95.0 Presence of cardiac pacemaker
CPT/HCPCS: 93306

== ENCOUNTER 2022-02-21 09:39 | Outpatient (REF) | payer MEDICARE, SELFPAY ==
[2022-02-21 09:57] LABS: MANUAL DIFF FLAG NO
[2022-02-21 10:45] LABS: Basophils Percent Auto 0.6 % (0-2); Eosinophils Absolute Auto 0.2 X10*3/uL (0.0-0.4); Eosinophils Percent Auto 3.1 % (0-4); Hematocrit 39.1 % (37.0-47.0); Hemoglobin 13.1 g/dl (12.0-16.0); Imm Gran Abs Auto 0.01 X10*3/uL (0.00-0.03); Imm Gran Pct Auto 0.2 % (0.0-0.4); Mean Corpuscular HGB Conc 33.5 g/dl (31.0-35.0); Mean Corpuscular Hemoglobin 31.3 pg (27.0-33.0); Mean Corpuscular Volume 93.3 fL (80.0-98.0); Mean Platelet Volume 9.2 fL (9.4-12.3); Monocytes Absolute Auto 0.5 X10*3/uL (0.1-1.2); Neutrophils Absolute Auto 2.6 x10*3/uL (2.0-8.3); Neutrophils Percent Auto 49.1 % (45-73); Platelet Count 243 X10*3/uL (160-400); Red Blood Count 4.19 X10*6/uL (4.20-5.50); White Blood Count 5.2 X10*3/uL (4.8-10.8)
[2022-02-21 10:52] LABS: Estimated Average Glucose 120 mg/dL; Hemoglobin A1c % 5.8 %
[2022-02-21 11:30] LABS: Alanine Aminotransferase 18 U/L (0-31); Albumin Level 4.2 g/dL (3.5-5.0); Alkaline Phosphatase 86 U/L (39-117); Anion Gap 14 (12-20); Aspartate Amino Transferase 23 U/L (5-31); Bilirubin Total 0.5 mg/dL (0.0-1.0); Blood Urea Nitrogen 19 mg/dL (9-16); Calcium 9.4 mg/dL (8.4-10.2); Carbon Dioxide 27 mmol/L (22-29); Chloride 102 mmol/L (96-108); Cholesterol 212 mg/dL; Estimated Glomerular Filt Rate > 60; Glucose Random 102 mg/dL (60-115); HDL Cholesterol 84 mg/dL; LDL Cholesterol Calculated 117 mg/dl; Potassium 4.1 mmol/L (3.3-5.1); Sodium 139 mmol/L (135-145); Total Protein 6.5 g/dL (6.5-8.0); Triglycerides 56 mg/dL
[2022-02-21 11:32] LABS: Free T4 (Free Thyroxine) 0.97 ng/dL (0.71-1.85); Thyroid Stimulating Hormone 3.76 uIU/mL (0.32-4.0); Vitamin D 25-OH Total 70.1 ng/mL (>30)
[2022-02-21 11:46] LABS: Folate > 20.0 ng/mL (> or = 4.0); Vitamin B12 622 pg/mL (200-900)
== END 2022-02-21 09:40 | disposition home or self-care (01) ==
LOC: HO.LAB 09:39
PROVIDERS: PCP Internal Medicine; Visit Provider Internal Medicine
DX: E78.00 Pure hypercholesterolemia, unspecified (principal)
CPT/HCPCS: 36415; 80053; 80061; 82306; 82607; 82746; 83036; 84439; 84443; 85025

== ENCOUNTER → 2022-03-28 11:02 | Outpatient (BNVA) | payer MEDICARE, SELFPAY | PROVIDERS: PCP Internal Medicine; Referring Provider Internal Medicine; Visit Provider Internal Medicine Cardiovascular Disease | DX: Z45.018 Encounter for adjustment and management of other part of cardiac pacemaker (principal); I47.20 Ventricular tachycardia, unspecified; I48.0 Paroxysmal atrial fibrillation | CPT/HCPCS: 93005; 93280; 99212 ==

== ENCOUNTER → 2022-09-21 10:35 | Outpatient (BNVA) | payer MEDICARE, SELFPAY | PROVIDERS: PCP Internal Medicine; Referring Provider Internal Medicine; Visit Provider Internal Medicine Cardiovascular Disease | DX: I48.0 Paroxysmal atrial fibrillation (principal); I49.5 Sick sinus syndrome; Z45.018 Encounter for adjustment and management of other part of cardiac pacemaker | CPT/HCPCS: 93280; 99212 ==

== ENCOUNTER 2022-10-23 10:39 | Outpatient (REF) | payer MEDICARE, SELFPAY ==
[2022-10-23 10:52] LABS: MANUAL DIFF FLAG NO
[2022-10-23 11:50] LABS: Basophils Percent Auto 0.6 % (0-2); Eosinophils Absolute Auto 0.3 X10*3/uL (0.0-0.4); Hematocrit 40.8 % (37.0-47.0); Hemoglobin 13.6 g/dl (12.0-16.0); Imm Gran Abs Auto 0.01 X10*3/uL (0.00-0.03); Imm Gran Pct Auto 0.2 % (0.0-0.4); Lymphocytes Absolute Auto 2.2 X10*3/uL (1.2-4.9); Lymphocytes Percent Auto 34.6 % (20-40); Mean Corpuscular HGB Conc 33.3 g/dl (31.0-35.0); Mean Corpuscular Hemoglobin 31.3 pg (27.0-33.0); Mean Corpuscular Volume 93.8 fL (80.0-98.0); Monocytes Absolute Auto 0.5 X10*3/uL (0.1-1.2); Monocytes Percent Auto 8.4 % (2-11); Neutrophils Absolute Auto 3.3 x10*3/uL (2.0-8.3); Neutrophils Percent Auto 51.2 % (45-73); Platelet Count 280 X10*3/uL (160-400); Red Blood Count 4.35 X10*6/uL (4.20-5.50); Red Cell Distribution Width 13.1 % (11.0-16.0); White Blood Count 6.4 X10*3/uL (4.8-10.8)
[2022-10-23 12:18] LABS: Estimated Average Glucose 114 mg/dL; Hemoglobin A1c % 5.6 %
[2022-10-23 12:42] LABS: Alanine Aminotransferase 15 U/L (0-31); Albumin Level 3.9 g/dL (3.5-5.0); Alkaline Phosphatase 90 U/L (39-117); Anion Gap 12 (12-20); Aspartate Amino Transferase 21 U/L (5-31); Bilirubin Total 0.6 mg/dL (0.0-1.0); Blood Urea Nitrogen 17 mg/dL (9-16); Calcium 9.4 mg/dL (8.4-10.2); Carbon Dioxide 29 mmol/L (22-29); Chloride 104 mmol/L (96-108); Estimated Glomerular Filt Rate > 60; Glucose Random 104 mg/dL (60-115); Magnesium 2.1 mg/dL (1.6-2.6); Phosphorus 3.6 mg/dL (2.7-4.5); Potassium 4.7 mmol/L (3.3-5.1); Sodium 140 mmol/L (135-145); Total Protein 6.7 g/dL (6.5-8.0)
== END 2022-10-23 10:40 | disposition home or self-care (01) ==
LOC: HO.LAB 10:39
PROVIDERS: PCP Internal Medicine; Visit Provider Internal Medicine
DX: I48.0 Paroxysmal atrial fibrillation (principal); R73.02 Impaired glucose tolerance (oral)
CPT/HCPCS: 36415; 80053; 83036; 83735; 84100; 85025

== ENCOUNTER → 2022-11-01 23:59 | Outpatient (BNV) | payer MEDICARE, SELFPAY ==
--- NOTE | 2022-11-07 11:19 | A.OFFVIS_ITS ---
Intake Intake Visit Reasons: Remote Device Check- [facility] Allergies Seasonal Allergies Allergy (Unknown, Verified 07/04/22 09:50) Unknown tizanidine Allergy (Unknown, Verified 07/04/22 09:50) LETHARGY garlic Adverse Reaction (Mild, Verified 07/04/22 09:50) [facility] Medical History Cardiac pacemaker in situ Carpal tunnel syndrome Cervical spondylosis Hypercholesterolemia Osteoarthritis, knee Osteopenia Paroxysmal atrial fibrillation Sick sinus syndrome Tarlov cyst Tubular adenoma of colon Urge incontinence Surgical History History of biopsy of bladder History of carpal tunnel release History of cataract surgery History of colonoscopy History of knee replacement, total History of permanent cardiac pacemaker placement Family History Father MVA (motor vehicle accident) Mother Acute CVA (cerebrovascular accident) Maternal Grandmother Stomach cancer Paternal Grandmother Breast cancer Paternal Aunt Breast cancer Social History Housing: House Alcohol intake: never Patient Tobacco Use Status: Former Tobacco user Tobacco use type: Cigarette e-Cigarette/Vaping Use: Never Used Second Hand Smoke Exposure: No service: No Current occupational status: retired Cognitive needs: No Hearing needs: No Vision needs: Yes (reading glasses) Office Procedures Cardiac Device Check Cardiac Device Check Details: Remote pacemaker report generated 11/01/2022. Pacemaker function is adequate [id number] Cardiac Device Interrogation, pacemaker Procedure code (CPT) selection complete Coding Level of Care Code Procedure Only Diagnoses CPT Codes Cardiac Device Check - Cardiac Device 12: [id number] Cardiac Device Interrogation, pacemaker ([id number])
== END ==
PROVIDERS: PCP Internal Medicine; Visit Provider Internal Medicine Cardiovascular Disease
DX: I48.0 Paroxysmal atrial fibrillation (principal); Z95.0 Presence of cardiac pacemaker
CPT/HCPCS: 93294

== ENCOUNTER 2022-11-09 15:13 | Outpatient (AMB) | payer MEDICARE, SELFPAY ==
[2022-11-09 15:19] VITALS: BP 124/76; PULSE 74; O2SAT 95; BMI 25.7
--- NOTE | 2022-11-09 15:19 | MHC.PC.OV ---
Vital Signs 11/09/22 15:19 Height 5 ft 8 in Weight 169 lb BMI 25.7 BP 124/76 Blood Pressure Location Lt brachial Position Sitting Pulse 74 Pulse Source Pulse Oximeter Pulse Oximetry (%) 95 Oxygen Delivery Method Room Air Intake Visit Reasons: [facility] Allergies Seasonal Allergies Allergy (Unknown, Verified 11/09/22 15:20) Unknown tizanidine Allergy (Unknown, Verified 11/09/22 15:20) LETHARGY garlic Adverse Reaction (Mild, Verified 11/09/22 15:20) SICK Medication List - Last Reconciled 11/09/22 by Vannessa Barber MD apixaban (Eliquis) 5 mg PO BID 90 days atorvastatin 20 mg PO DAILY cephalexin 500 mg PO 4 capsule 1 hour prior to procedure; cholecalciferol (vitamin D3) 25 mcg PO DAILY estradiol 0.01%(0.1mg/gram) 1 g vaginal 3XW famotidine (Pepcid) 20 mg PO BEDTIME 90 days fexofenadine (Isela Allergy) 180 mg PO DAILY rycnz-nb9-qtg-rhb-zg9-mkn-astx 1,500-165-67.5 mg (Krill Oil ([place] 3 and 6)) caps PO metoprolol succinate ER 75 mg (1.5 x 50 mg) PO DAILY 90 days sjalzvuk-jdu-yvtc-FA-lutein 8 mg iron-400 mcg-300 mcg (Centrum Silver Women) 1 tab PO DAILY oxybutynin chloride ER 5 mg PO BID Tobacco use date assessed: 07/04/22 Fall risk assessment: No Falls in past year Last assessed Fall Risk: 11/09/22 Dental Screening Dental Screen Date: 11/09/22 Did you have a dental visit in the last 12 months?: Yes Did you have a dental problem in the last 6 months where you did not have access to dental care?: No Was dental information given to patient?: Patient has dentist H[facility] HPI Details 77-year-old female with a history of impaired glucose tolerance nonsustained ventricular tachycardia paroxysmal atrial fibrillation hypercholesterolemia with sick sinus syndrome coming in for follow-up. Last seen in June 2022 blood work was requested.. Patient regularly follow-up visit cardiology no cardiac symptoms doing well on metoprolol therapy continue with anticoagulation semi annual renal function.complains of post nasal drinp, isela use and sinus rinse better PFSH Medical History Cardiac pacemaker in situ Carpal tunnel syndrome Cervical spondylosis Hypercholesterolemia Osteoarthritis, knee Osteopenia Paroxysmal atrial fibrillation Sick sinus syndrome Tarlov cyst Tubular adenoma of colon Urge incontinence Surgical History History of biopsy of bladder History of carpal tunnel release History of cataract surgery History of colonoscopy History of knee replacement, total History of permanent cardiac pacemaker placement Family History Father MVA (motor vehicle accident) Mother Acute CVA (cerebrovascular accident) Maternal Grandmother Stomach cancer Paternal Grandmother Breast cancer Paternal Aunt Breast cancer Social History Housing: House Alcohol intake: never Patient Tobacco Use Status: Former Tobacco user Tobacco use type: Cigarette e-Cigarette/Vaping Use: Never Used Second Hand Smoke Exposure: No service: No Current occupational status: retired Cognitive needs: No Hearing needs: No Vision needs: Yes (reading glasses) Questionnaire PHQ-9 Over the last 2 weeks, how often have you been bothered by any of the following problems? 1. Little interest or pleasure in doing things: not at all 2. Feeling down, depressed, or hopeless: not at all 3. Trouble falling or staying asleep, or sleeping too much: not at all 4. Feeling tired or having little energy: several days 5. Poor appetite or overeating: not at all 6. Feeling bad about yourself - or that you are a failure or have let yourself or your family down: not at all 7. Trouble concentrating on things, such as reading the newspaper or watching television: not at all 8. Moving or speaking so slowly that other people could have noticed. Or the opposite - being so fidgety or restless that you have been moving around a lot more than usual: not at all 9. Thoughts that you would be better off or of hurting yourself in some way: not at all Total score: 1 Depression Screening Interpretation: Negative Source: Developed by Drs. Al May, Meghan Hackett, Robby Rios and colleagues, with an educational jose from [employer]. Thrive Questionnaire Date Thrive assessed: 07/04/22 AUDIT C Alcohol Use Questionnaire (AUDIT-C) 1. How often do you have a drink containing alcohol?: Monthly or less 2. How many drinks containing alcohol do you have on a typical day when you are drinking?: 1 or 2 Total Score: 1 Score Reviewed/Action Taken: No RAFAEL-7 AMB Questionnaire RAFAEL-7 Date RAFAEL - 7 assessed: 07/04/22 Source: Developed by Drs. Al May, Meghan Hackett, Robby Rios and colleagues, with an educational jose from [employer]. Physical exam (Primary Care) Vital Signs: Last Vital Signs Pulse 74 11/09/22 15:19 BP 124/76 11/09/22 15:19 Pulse Ox 95 11/09/22 15:19 Oxygen Delivery Method Room Air 11/09/22 15:19 BMI result Body Mass Index 25.7 Tobacco/Smoking Status: Tobacco use Status Tobacco use date assessed 07/04/22 11/09/22 15:23 Patient Tobacco Use Status Former Tobacco user 11/09/22 15:23 Tobacco use type Cigarette 11/09/22 15:23 e-Cigarette/Vaping Use Never Used 11/09/22 15:23 PHQ-9: PHQ-9 Score PHQ-9: Total score 1 11/09/22 15:23 Depression Screening Interpretation: Negative Thrive Assessment: Date of Thrive Assessment Date Thrive assessed 07/04/22 11/09/22 15:23 Const General: alert; No acute distress Eyes Conjunctivae: conjunctivae normal Resp Auscultation: clear to auscultation bilaterally Cardio Rate: regular rate Rhythm: regular rhythm GI Inspection: Yes normal to inspection Extrem General: Yes normal to inspection and No edema Assessment and Plan Assessment & Plan (1) Impaired glucose tolerance: Code(s): R73.02 - Impaired glucose tolerance (oral) Plan: Decrease the amount of carbohydrate intake, pasta, bread, rice and potatoes are all sugar and that is aside from all the sweet stuff, remember that fruits are good but they are Sweet also. (2) GERD (gastroesophageal reflux disease): Code(s): K21.9 - Gastro-esophageal reflux disease without esophagitis Plan: Avoid the foods that causes that usually spicy foods, tomato products, juices, coffee, soda and foods that your sensitive to. After eating do not lie down, allow 3-4 hours before in lie down. And keep the head of bed above 30 degrees to avoid the acid from going up. (3) Paroxysmal atrial fibrillation: Comment: Dr. Kingston pacemaker July 2018 Code(s): I48.0 - Paroxysmal atrial fibrillation Plan: Continue with anticoagulation semiannual renal function. September last blood work (4) Hypercholesterolemia: Code(s): E78.00 - Pure hypercholesterolemia, unspecified Plan: Avoid fried foods, chicken skin, eggs, butter margarine, pastries and meat. Be it pork or beef they have a lot of cholesterol LDL goal of less than 130 and triglyceride of less than 150 patient is on atorvastatin 16 February 2022 last blood work (5) Cough: Code(s): R05.9 - Cough, unspecified Orders: Orders Vitamin B12 and Folate 5 Months K21.9 - Gastro-esophageal reflux disease without esophagitis B Type Natriuretic Peptide 5 Months I48.0 - Paroxysmal atrial fibrillation Comprehensive Met. Panel 5 Months R73.02 - Impaired glucose tolerance (oral) Hemoglobin A1c 5 Months R73.02 - Impaired glucose tolerance (oral) Lipid Panel 5 Months E78.00 - Pure hypercholesterolemia, unspecified Free T4 (Free Thyroxine) 5 Months I48.0 - Paroxysmal atrial fibrillation Thyroid Stimulating Hormone 5 Months I48.0 - Paroxysmal atrial fibrillation Vitamin D 25-OH Total 5 Months K21.9 - Gastro-esophageal reflux disease without esophagitis PFT pulmonary function test Today R05.9 - Cough, unspecified XR chest 2V Today R05.9 - Cough, unspecified Coding Level of Care Code Est Pt Level 4 (72052) Diagnoses Impaired glucose tolerance R73.02 GERD (gastroesophageal reflux disease) K21.9 Paroxysmal atrial fibrillation I48.0 Hypercholesterolemia E78.00 Cough R05.9 Additional Codes PHQ-9 - 24734 - PHQ-9 Billing: Y ([id number])
== END 2022-11-09 15:56 | disposition home or self-care (01) ==
PROVIDERS: PCP Internal Medicine; Visit Provider Internal Medicine
DX: R73.02 Impaired glucose tolerance (oral) (principal); K21.9 Gastro-esophageal reflux disease without esophagitis; I48.0 Paroxysmal atrial fibrillation; E78.00 Pure hypercholesterolemia, unspecified; R05.9 Cough, unspecified
CPT/HCPCS: 99214

== ENCOUNTER 2022-11-23 10:59 | Outpatient (REF) | payer MEDICARE, SELFPAY ==
--- NOTE | ~2022-11-23 | XR_ITS ---
EXAMINATION: XR CHEST CLINICAL INFORMATION: Cough. COMPARISON: 08/06/2018 and 07/03/2018. TECHNIQUE: 2 views of the chest were obtained. FINDINGS: No significant abnormality is noted involving the heart, lungs, mediastinum, bony thorax or soft tissues. There is chronic thickening anterior aspect of a major fissure on lateral view. Dual-chamber pacemaker in place. XR/XR chest 2V IMPRESSION: No acute disease.
--- NOTE | 2022-11-23 12:06 | PFT_ITS ---
FINDINGS: Forced vital capacity 86%, FEV1 95%, FEV1/FVC ratio is 83. FEF 25-75 of 152% and MVV 105%. Post bronchodilator therapy, there is no significant change. Total lung capacity 82%. Residual volume 69%. Diffusion capacity 62%. CONCLUSION: Except for slight decrease in diffusion capacity, otherwise, the pulmonary function test is within normal limits. No evidence of obstructive or restrictive pulmonary disorder. Diffusion capacity corrected with the volume, DL/VA is 74, which is normal. Clinical correlation recommended. MD FLORENCIA Ibrahim/MODL / [id number]
== END 2022-11-23 11:00 | disposition home or self-care (01) ==
LOC: HO.RESP 10:59
PROVIDERS: PCP Internal Medicine; Visit Provider Internal Medicine
DX: R05.9 Cough, unspecified (principal)
CPT/HCPCS: 71046; 94010; 94727; 94729

== ENCOUNTER → 2022-11-23 12:06 | Outpatient (BNV) | payer MEDICARE, SELFPAY | PROVIDERS: PCP Internal Medicine; Visit Provider Internal Medicine | DX: R05.3 Chronic cough (principal) | CPT/HCPCS: 94060; 94727; 94729 ==

== ENCOUNTER 2022-12-04 11:21 | Outpatient (REF) | payer MEDICARE, SELFPAY ==
[2022-12-04 15:55] VITALS: BP 123/63; PULSE 60; RESP 16; TEMP 36.2; O2SAT 96; BMI 25.1
== END 2022-12-04 11:22 | disposition home or self-care (01) ==
LOC: HO.MS 11:21
PROVIDERS: PCP Internal Medicine; Visit Provider Ophthalmology
PROC: (CPT 66821; principal; 2022-12-04 14:10)
DX: H26.492 Other secondary cataract, left eye (principal)
CPT/HCPCS: 66821

== ENCOUNTER 2023-01-02 11:55 | Outpatient (REF) | payer MEDICARE, SELFPAY ==
--- NOTE | ~2023-01-02 | MM_ITS ---
EXAMINATION: MM SCREENING DIGITAL BREAST TOMOSYNTHESIS, BILATERAL CLINICAL INFORMATION: Screening. Asymptomatic. COMPARISON: Mammography: 12/19/2021, 12/17/2020, and studies dating back to May 08, 2011 TECHNIQUE: Digital breast tomosynthesis is performed in both the craniocaudal and mediolateral oblique views along with computer-aided detection (CAD). Synthesized 2D images are generated from the tomosynthesis. FINDINGS: The breasts are almost entirely fatty (ACR BI-RADS breast composition Category a). There is a pacemaker generator overlying the left axillary tail region, obscuring this region somewhat. Otherwise, there are are no suspicious masses, suspicious grouped calcifications, or areas of architectural distortion. The parenchymal pattern is stable from prior exams. There are faint vascular calcifications bilaterally. MM/MM tomosynthesis screening BI IMPRESSION: No mammographic evidence of malignancy. ASSESSMENT: BI-RADS BI-RADS 2 - Benign Findings RECOMMENDATION: Routine annual mammography screening. 1 year F/U This examination should not preclude the clinical evaluation of a suspicious palpable abnormality. This patient's information was entered into a reminder system with a target due date for their next mammogram.
== END 2023-01-02 11:56 | disposition home or self-care (01) ==
LOC: HO.MAMMO 11:55
PROVIDERS: PCP Internal Medicine; Visit Provider Internal Medicine
DX: Z12.31 Encounter for screening mammogram for malignant neoplasm of breast (principal)
CPT/HCPCS: 77063; 77067

== ENCOUNTER → 2023-01-02 12:15 | Outpatient (BNV) | payer MEDICARE, SELFPAY | PROVIDERS: PCP Internal Medicine; Visit Provider Radiology Diagnostic Radiology | DX: Z12.31 Encounter for screening mammogram for malignant neoplasm of breast (principal) | CPT/HCPCS: 77063; 77067 ==

== ENCOUNTER → 2023-01-31 23:59 | Outpatient (BNV) | payer MEDICARE, SELFPAY ==
--- NOTE | 2023-01-31 10:09 | MHC.OFFVIS ---
Intake Intake Visit Reasons: Remote Device Check- [facility] Allergies Seasonal Allergies Allergy (Unknown, Verified 11/09/22 15:20) Unknown tizanidine Allergy (Unknown, Verified 11/09/22 15:20) LETHARGY garlic Adverse Reaction (Mild, Verified 11/09/22 15:20) SICK [facility] Medical History Cardiac pacemaker in situ Carpal tunnel syndrome Cervical spondylosis Hypercholesterolemia Osteoarthritis, knee Osteopenia Paroxysmal atrial fibrillation Sick sinus syndrome Tarlov cyst Tubular adenoma of colon Urge incontinence Surgical History History of biopsy of bladder History of carpal tunnel release History of cataract surgery History of colonoscopy History of knee replacement, total History of permanent cardiac pacemaker placement Family History Father MVA (motor vehicle accident) Mother Acute CVA (cerebrovascular accident) Maternal Grandmother Stomach cancer Paternal Grandmother Breast cancer Paternal Aunt Breast cancer Social History Housing: House Alcohol intake: never Patient Tobacco Use Status: Former Tobacco user Tobacco use type: Cigarette e-Cigarette/Vaping Use: Never Used Second Hand Smoke Exposure: No service: No Current occupational status: retired Cognitive needs: No Hearing needs: No Vision needs: Yes (reading glasses) Office Procedures Cardiac Device Check Cardiac Device Check Details: Remote pacemaker report generated 01/31/2023. Pacemaker function is adequate. [id number] Cardiac Device Interrogation, pacemaker Procedure code (CPT) selection complete Coding Level of Care Code Procedure Only CPT Codes Cardiac Device Check - Cardiac Device 12: [id number] Cardiac Device Interrogation, pacemaker ([id number])
== END ==
PROVIDERS: PCP Internal Medicine; Visit Provider Internal Medicine Cardiovascular Disease
DX: I48.0 Paroxysmal atrial fibrillation (principal); Z95.0 Presence of cardiac pacemaker
CPT/HCPCS: 93294

== ENCOUNTER 2023-02-19 10:59 | Outpatient (REF) | payer MEDICARE, SELFPAY ==
[2023-02-19 12:26] LABS: Estimated Average Glucose 117 mg/dL; Hemoglobin A1c % 5.7 % (<6.0)
[2023-02-19 12:39] LABS: B Type Natriuretic Peptide 69 pg/mL (<100)
[2023-02-19 12:52] LABS: Alanine Aminotransferase 17 U/L (0-31); Alkaline Phosphatase 93 U/L (39-117); Anion Gap 11 (12-20); Aspartate Amino Transferase 22 U/L (5-31); Bilirubin Total 0.5 mg/dL (0.0-1.0); Blood Urea Nitrogen 17 mg/dL (9-16); Calcium 9.4 mg/dL (8.4-10.2); Carbon Dioxide 28 mmol/L (22-29); Chloride 107 mmol/L (96-108); Cholesterol 200 mg/dL (<200); Estimated Glomerular Filt Rate > 60; Glucose Random 105 mg/dL (60-115); HDL Cholesterol 74 mg/dL (>40); LDL Cholesterol Calculated 110 mg/dL (<100); Potassium 4.7 mmol/L (3.3-5.1); Sodium 141 mmol/L (135-145); Total Protein 6.8 g/dL (6.5-8.0); Triglycerides 80 mg/dL (<150)
[2023-02-19 13:03] LABS: Free T4 (Free Thyroxine) 0.99 ng/dL (0.71-1.85); Vitamin D 25-OH Total 77.4 ng/mL (>30)
[2023-02-19 13:13] LABS: Folate 14.8 ng/mL (> or = 4.0); Vitamin B12 1049 pg/mL (200-900)
== END 2023-02-19 11:00 | disposition home or self-care (01) ==
LOC: HO.LAB 10:59
PROVIDERS: PCP Internal Medicine; Visit Provider Internal Medicine
DX: I48.0 Paroxysmal atrial fibrillation (principal); R73.02 Impaired glucose tolerance (oral); E78.00 Pure hypercholesterolemia, unspecified; K21.9 Gastro-esophageal reflux disease without esophagitis; M85.80 Other specified disorders of bone density and structure, unspecified site; E55.9 Vitamin D deficiency, unspecified
CPT/HCPCS: 36415; 80053; 80061; 82306; 82607; 82746; 83036; 83880; 84439; 84443

== ENCOUNTER 2023-02-27 13:13 | Outpatient (AMB) | payer MEDICARE, SELFPAY ==
[2023-02-27 13:14] VITALS: BP 122/76; PULSE 69; O2SAT 98; BMI 25.7
--- NOTE | 2023-02-27 13:14 | MHC.PC.OV ---
Vital Signs 02/27/23 13:14 Height 5 ft 8 in Weight 169 lb BMI 25.7 BP 122/76 Blood Pressure Location Lt brachial Position Sitting Pulse 69 Pulse Source Pulse Oximeter Pulse Oximetry (%) 98 Oxygen Delivery Method Room Air Intake Visit Reasons: cough Allergies Seasonal Allergies Allergy (Unknown, Verified 02/27/23 13:15) Unknown tizanidine Allergy (Unknown, Verified 02/27/23 13:15) LETHARGY garlic Adverse Reaction (Mild, Verified 02/27/23 13:15) SICK Medication List - Last Reconciled 02/27/23 by Vannessa Barber MD apixaban (Eliquis) 5 mg PO BID 90 days atorvastatin 20 mg PO DAILY cephalexin 500 mg PO 4 capsule 1 hour prior to procedure; cholecalciferol (vitamin D3) 25 mcg PO DAILY estradiol 0.01%(0.1mg/gram) 1 g vaginal 3XW famotidine (Pepcid) 20 mg PO BEDTIME 90 days kkvnr-uj0-hyi-vcn-xz0-ids-astx 1,500-165-67.5 mg (Krill Oil ([place] 3 and 6)) caps PO loratadine 10 mg PO DAILY metoprolol succinate ER 75 mg (1.5 x 50 mg) PO DAILY 90 days obdxkmwt-meu-nbbg-FA-vit K-lut 8 mg iron-400 mcg-50 mcg (Centrum Silver Women) 1 tab PO DAILY oxybutynin chloride ER 5 mg PO BID Tobacco use date assessed: 07/04/22 Fall risk assessment: No Falls in past year Last assessed Fall Risk: 02/27/23 Dental Screening Dental Screen Date: 02/27/23 Did you have a dental visit in the last 12 months?: Yes Did you have a dental problem in the last 6 months where you did not have access to dental care?: No Was dental information given to patient?: Patient has dentist HPI cough HPI Details 78-year-old female with a history of impaired glucose tolerance GERD atrial fibrillation hypercholesterolemia last seen in October 2022. Review of the notes has seen Urology in February 21 for bladder urgent stress incontinence placed on VESIcare. With the cough patient was advised to get pulmonary function test November 2022 which was normal and a chest x-ray negative since June cough- knows a lot of allergy and jacinto feel better with med - takes espectorant and antitussive- PFSH Medical History Cardiac pacemaker in situ Carpal tunnel syndrome Cervical spondylosis Hypercholesterolemia Osteoarthritis, knee Osteopenia Paroxysmal atrial fibrillation Sick sinus syndrome Tarlov cyst Tubular adenoma of colon Urge incontinence Surgical History History of biopsy of bladder History of carpal tunnel release History of cataract surgery History of colonoscopy History of knee replacement, total History of permanent cardiac pacemaker placement Family History Father MVA (motor vehicle accident) Mother Acute CVA (cerebrovascular accident) Maternal Grandmother Stomach cancer Paternal Grandmother Breast cancer Paternal Aunt Breast cancer Social History Housing: House Alcohol intake: never Patient Tobacco Use Status: Former Tobacco user Tobacco use type: Cigarette e-Cigarette/Vaping Use: Never Used Second Hand Smoke Exposure: No service: No Current occupational status: retired Cognitive needs: No Hearing needs: No Vision needs: Yes (reading glasses) Questionnaire PHQ-9 Over the last 2 weeks, how often have you been bothered by any of the following problems? 1. Little interest or pleasure in doing things: not at all 2. Feeling down, depressed, or hopeless: not at all 3. Trouble falling or staying asleep, or sleeping too much: not at all 4. Feeling tired or having little energy: several days 5. Poor appetite or overeating: not at all 6. Feeling bad about yourself - or that you are a failure or have let yourself or your family down: not at all 7. Trouble concentrating on things, such as reading the newspaper or watching television: not at all 8. Moving or speaking so slowly that other people could have noticed. Or the opposite - being so fidgety or restless that you have been moving around a lot more than usual: not at all 9. Thoughts that you would be better off or of hurting yourself in some way: not at all Total score: 1 Depression Screening Interpretation: Negative Depression Screening Done: Yes Source: Developed by Drs. Al May, Meghan B.WRobby Dumas and colleagues, with an educational jose from [employer]. Thrive Questionnaire Date Thrive assessed: 07/04/22 AUDIT C Alcohol Use Questionnaire (AUDIT-C) 1. How often do you have a drink containing alcohol?: Monthly or less 2. How many drinks containing alcohol do you have on a typical day when you are drinking?: 1 or 2 Total Score: 1 Score Reviewed/Action Taken: No RAFAEL-7 AMB Questionnaire RAFAEL-7 Date RAFAEL - 7 assessed: 07/04/22 Source: Developed by Drs. Al May, Robby Laguna and colleagues, with an educational jose from [employer]. Physical exam (Primary Care) Vital Signs: Last Vital Signs Pulse 69 02/27/23 13:14 BP 122/76 02/27/23 13:14 Pulse Ox 98 02/27/23 13:14 Oxygen Delivery Method Room Air 02/27/23 13:14 BMI result Body Mass Index 25.7 Tobacco/Smoking Status: Tobacco use Status Tobacco use date assessed 07/04/22 02/27/23 13:16 Patient Tobacco Use Status Former Tobacco user 02/27/23 13:16 Tobacco use type Cigarette 02/27/23 13:16 e-Cigarette/Vaping Use Never Used 02/27/23 13:16 PHQ-9: PHQ-9 Score PHQ-9: Total score 1 02/27/23 13:36 Depression Screening Interpretation: Negative Thrive Assessment: Date of Thrive Assessment Date Thrive assessed 07/04/22 02/27/23 13:16 Assessment and Plan Assessment & Plan Orders: Referrals Pulmonology Referral R05.9 - Cough, unspecified Medications: New loratadine 10 mg PO DAILY 30 tabs 0RF R05.9 - Cough, unspecified Coding Level of Care Code Est Pt Level 4 (54119) Additional Codes PHQ-9 - 10399 - PHQ-9 Billing: ([id number])
== END 2023-02-27 13:47 | disposition home or self-care (01) ==
PROVIDERS: PCP Internal Medicine; Visit Provider Internal Medicine
DX: R05.9 Cough, unspecified (principal)
CPT/HCPCS: 99214

== ENCOUNTER 2023-03-06 09:47 | Outpatient (AMB) | payer MEDICARE, SELFPAY ==
--- NOTE | 2023-03-06 09:51 | A.OFFVIS_ITS ---
Intake Vital Signs 03/06/23 09:54 Height 5 ft 8 in Weight 169 lb 6 oz BMI 25.8 BP 120/70 Blood Pressure Location Lt brachial Position Sitting Pulse 66 Pulse Source Pulse Oximeter Pulse Oximetry (%) 95 Oxygen Delivery Method Room Air Intake Visit Reasons: AWV, last 03/01/22. Intake Note: Patient is here for an Annual Wellness Visit. 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 offered & declined Accompanied by: Self / Same As Patient Allergies Seasonal Allergies Allergy (Unknown, Verified 03/06/23 10:09) Unknown tizanidine Allergy (Unknown, Verified 03/06/23 10:09) LETHARGY garlic Adverse Reaction (Mild, Verified 03/06/23 10:09) SICK Medication List - Last Reconciled 03/06/23 by FRIDA Brewster apixaban (Eliquis) 5 mg PO BID 90 days atorvastatin 20 mg PO DAILY cephalexin 500 mg PO 4 capsule 1 hour prior to procedure; cholecalciferol (vitamin D3) 25 mcg PO DAILY estradiol 0.01%(0.1mg/gram) 1 g vaginal 3XW famotidine (Pepcid) 20 mg PO BEDTIME 90 days lnvef-dt6-bem-wlf-ap9-quh-astx 1,500-165-67.5 mg (Krill Oil ([place] 3 and 6)) caps PO loratadine 10 mg PO DAILY metoprolol succinate ER 75 mg (1.5 x 50 mg) PO DAILY 90 days kqjzbiur-frl-govv-FA-vit K-lut 8 mg iron-400 mcg-50 mcg (Centrum Silver Women) 1 tab PO DAILY oxybutynin chloride ER 5 mg PO BID HPI AWV, last 03/01/22. HPI Details Patient is a 78-year-old female who presents today for subsequent wellness visit. Patient of Dr. Barber. Today we discussed patient's need for bone density screening. Up-to-date with immunizations. Mammogram normal 12/2022. [place] of care was reviewed with the patient and she was provided with a screening schedule. Healthcare proxy and MOLST forms on file. [facility] Medical History Cough Cardiac pacemaker in situ Cervical spondylosis Tubular adenoma of colon Tarlov cyst Osteoarthritis, knee Carpal tunnel syndrome Sick sinus syndrome Paroxysmal atrial fibrillation Hypercholesterolemia Urge incontinence Osteopenia Surgical History History of colonoscopy History of permanent cardiac pacemaker placement History of knee replacement, total History of carpal tunnel release History of biopsy of bladder History of cataract surgery Family History Father MVA (motor vehicle accident) Mother Acute CVA (cerebrovascular accident) Maternal Grandmother Stomach cancer Paternal Grandmother Breast cancer Paternal Aunt Breast cancer Social History Housing: House Alcohol intake: never Patient Tobacco Use Status: Former Tobacco user Tobacco use type: Cigarette e-Cigarette/Vaping Use: Never Used Second Hand Smoke Exposure: No service: No Current occupational status: retired Cognitive needs: No Hearing needs: No Vision needs: Yes (reading glasses) Questionnaire Medicare Wellness Checkup [age] What gender do you identify with?: female During the past 4 weeks, how much have you been bothered by emotional problems such as feeling anxious, depressed, irritable, sad or downhearted, and blue?: not at all During the past 4 weeks, has your physical & emotional health limited your social activities with family, friends, neighbors, or groups?: not at all During the past 4 weeks, how much bodily pain have you generally had?: no pain During the past 4 weeks, was someone available to help you if you needed & wanted help?: no, not at all During the past 4 weeks, what was the hardest physical activity you could do for at least 2 minutes?: moderate Can you get to places out of walking distance without help? (For eg., can you travel alone on buses, taxis or drive your car?): Yes Can you go shopping for groceries or clothes without someone's help?: Yes Can you prepare your own meals?: Yes Can you do your housework without help?: Yes Because of any health problems, do you need the help of another person with your personal care needs such as eating, bathing, dressing or getting around the house?: No Can you handle your own money without help?: Yes During the past 4 weeks, how would you rate your health in general?: very good During the past 4 weeks how have things been going for you?: pretty well Are you having difficulties driving your car?: no Do you always fasten your seat belt when you are in a car?: yes, usually During past 4 weeks, have you been bothered by the following: never: Falling or dizzy when standing up, Sexual problems?, Trouble eating well?, Teeth or denture problems? and Problems using the telephone? and seldom: Tiredness or fatigue? Have you fallen 2 or more times in the past year?: No Are you afraid of falling?: No Are you a smoker?: no During the past 4 weeks, how many drinks of wine, beer, or other alcoholic beverages did you have?: no alcohol at all Do you exercise for about 20 minutes 3 or more times a week?: no, I usually do not exercise this much Have you been given information to help with the following?: yes: Keeping track of your medications? and no: Hazards in your house that might hurt you? How often do you have trouble taking medicines the way you have been told to take them?: I always take medicine as prescribed How confident are you that you can control & manage most of your health problems?: very confident What is your race?: White Mini Mental State Exam (MMSE) Orientation What is the (year) (season) (date) (day) (month)?: year, season, date, day and month Score Score: 5 Activity of Daily Living Bathing - sponge bath, tub bath or shower: receives no assistance (gets in/out by self, if usual bathing means Dressing - getting clothes from closets & drawers, including inner/outer garments & fasteners.: gets clothes & gets completely dressed without help Toileting - going to the 'toilet room' for urine/bowel elimination & cleaning self/arranging clothes: goes to toilet room, cleans self, arranges clothes without help Transfer: moves in & out of bed and chair without help (may use support object) Continence: controls urination/bowel movements completely by self Feeding: feeds self without help Total Score: 0 Information obtained from: patient Using telephone: independent Traveling: independent Shopping: independent Preparing meals: independent Housework: independent Taking medicine: independent Managing money: independent PHQ-9 Over the last 2 weeks, how often have you been bothered by any of the following problems? 1. Little interest or pleasure in doing things: not at all 2. Feeling down, depressed, or hopeless: not at all 3. Trouble falling or staying asleep, or sleeping too much: not at all 4. Feeling tired or having little energy: not at all 5. Poor appetite or overeating: not at all 6. Feeling bad about yourself - or that you are a failure or have let yourself or your family down: not at all 7. Trouble concentrating on things, such as reading the newspaper or watching television: not at all 8. Moving or speaking so slowly that other people could have noticed. Or the opposite - being so fidgety or restless that you have been moving around a lot more than usual: not at all 9. Thoughts that you would be better off or of hurting yourself in some way: not at all Total score: 0 Depression Screening Interpretation: Negative Depression Screening Done: Yes 88096 - PHQ-9 Billing: Yes Source: Developed by Drs. Al May, Robby Laguna and colleagues, with an educational jose from [employer]. Thrive Questionnaire Date Thrive assessed: 07/04/22 RAFAEL-7 AMB Questionnaire RAFAEL-7 Date RAFAEL - 7 assessed: 07/04/22 Source: Developed by Drs. Al May, Robby Laguna and colleagues, with an educational jose from [employer]. Physical Exam Vital Signs: Last Vital Signs Pulse 66 03/06/23 09:54 BP 120/70 03/06/23 09:54 Pulse Ox 95 03/06/23 09:54 Oxygen Delivery Method Room Air 03/06/23 09:54 BMI result Body Mass Index 25.8 Const General: cooperative and no acute distress Orientation/consciousness: patient oriented x3 HEENT Other: Whisper test: pass Neuro Other: Balance: Normal Get up and walk: able to Romberg: negative Tandem gait: able to General: patient oriented x3 Assessment & Plan Assessment & Plan (1) Adult general medical exam: Code(s): Z00.00 - Encounter for general adult medical examination without abnormal findings (2) Impaired glucose tolerance: Code(s): R73.02 - Impaired glucose tolerance (oral) Plan: Recent A1c 5.7 01/2023 (3) GERD (gastroesophageal reflux disease): Code(s): K21.9 - Gastro-esophageal reflux disease without esophagitis Plan: Continue current treatment Avoid GERD trigger foods Do not lay down 2-3 hours after evening meal (4) Osteopenia: Code(s): M85.80 - Other specified disorders of bone density and structure, unspecified site Plan: Continue supplements as prescribed (5) Urinary incontinence: Comment: Dr. galindo sacral nerve roots electrode implant May 2020 Code(s): R32 - Unspecified urinary incontinence Qualifiers: Urinary Incontinence type: mixed stress and urge incontinence Qualified Code(s): N39.46 - Mixed incontinence Plan: Continue to follow-up with urology Dr. Galindo (6) Paroxysmal atrial fibrillation: Comment: Dr. Kingston pacemaker July 2018 Code(s): I48.0 - Paroxysmal atrial fibrillation Plan: Continue current treatment Continue to follow-up with cardiology Dr. Kingston (7) Hypercholesterolemia: Code(s): E78.00 - Pure hypercholesterolemia, unspecified Plan: Atorvastatin 20 mg daily Low-cholesterol diet (8) Post-menopausal: Code(s): Z78.0 - Asymptomatic menopausal state Orders: Orders XR DEXA axial skeleton Today Z78.0 - Asymptomatic menopausal state Quality Reporting (2019) Depression/Bipolar (159/160/161/177) PHQ-9: Total score: 0 Coding Level of Care Code Medicare Subsequent (G0439) Diagnoses Adult general medical exam Z00.00 Impaired glucose tolerance R73.02 GERD (gastroesophageal reflux disease) K21.9 Osteopenia M85.80 Mixed stress and urge urinary incontinence N39.46 Urinary Incontinence type: mixed stress and urge incontinence Paroxysmal atrial fibrillation I48.0 Hypercholesterolemia E78.00 Post-menopausal Z78.0 CPT Codes Advance Care Planning - Advance Care Planning discussion: On file, no changes ([id number]) Advance Care Planning - Time spent: 1-15 minutes, on File ([id number]) Advance Care Planning Advance Care Planning discussion: On file, no changes Date of discussion: 03/06/23 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
[2023-03-06 09:54] VITALS: BP 120/70; PULSE 66; O2SAT 95; BMI 25.8
== END 2023-03-06 10:23 | disposition home or self-care (01) ==
PROVIDERS: Visit Provider Nurse Practitioner Family
DX: Z00.00 Encounter for general adult medical examination without abnormal findings (principal); R73.02 Impaired glucose tolerance (oral); I48.0 Paroxysmal atrial fibrillation; K21.9 Gastro-esophageal reflux disease without esophagitis; M85.80 Other specified disorders of bone density and structure, unspecified site; N39.46 Mixed incontinence; E78.00 Pure hypercholesterolemia, unspecified; Z78.0 Asymptomatic menopausal state
CPT/HCPCS: 1123F; G0439

== ENCOUNTER 2023-03-20 10:03 | Outpatient (AMB) | payer MEDICARE, SELFPAY ==
--- NOTE | 2023-03-20 10:04 | A.OFFVIS_ITS ---
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 Required: No Allergies Seasonal Allergies Allergy (Unknown, Verified 03/06/23 10:09) Unknown tizanidine Allergy (Unknown, Verified 03/06/23 10:09) LETHARGY garlic Adverse Reaction (Mild, Verified 03/06/23 10:09) SICK Medication List - Last Reconciled 03/20/23 by Zackary Kingston MD apixaban (Eliquis) 5 mg PO BID 90 days atorvastatin 20 mg PO DAILY cephalexin 500 mg PO 4 capsule 1 hour prior to procedure; cholecalciferol (vitamin D3) 25 mcg PO DAILY estradiol 0.01%(0.1mg/gram) 1 g vaginal 3XW famotidine (Pepcid) 20 mg PO BEDTIME 90 days scxct-um0-ein-vpb-up7-gzu-astx 1,500-165-67.5 mg (Krill Oil ([place] 3 and 6)) caps PO loratadine 10 mg PO DAILY metoprolol succinate ER 75 mg (1.5 x 50 mg) PO DAILY 90 days tbuedcng-lyt-jfoh-FA-vit K-lut 8 mg iron-400 mcg-50 mcg (Centrum Silver Women) 1 tab PO DAILY oxybutynin chloride ER 5 mg PO BID HPI HPI Comments History of Present Illness Details Erika comes for follow-up. She has been doing very well from cardiac perspective. Denies any cardiac symptoms. Denies any prolonged palpitation irregular heartbeat. Denies exertional chest pain or shortness of breath. No lightheadedness, syncope. No heart failure symptoms. No bleeding issues or neurologic events. [facility] Medical History Cough Cardiac pacemaker in situ Cervical spondylosis Tubular adenoma of colon Tarlov cyst Osteoarthritis, knee Carpal tunnel syndrome Sick sinus syndrome Paroxysmal atrial fibrillation Hypercholesterolemia Urge incontinence Osteopenia Surgical History History of colonoscopy History of permanent cardiac pacemaker placement History of knee replacement, total History of carpal tunnel release History of biopsy of bladder History of cataract surgery Family History Father MVA (motor vehicle accident) Mother Acute CVA (cerebrovascular accident) Maternal Grandmother Stomach cancer Paternal Grandmother Breast cancer Paternal Aunt Breast cancer Housing: House Alcohol intake: never Patient Tobacco Use Status: Former Tobacco user Tobacco use type: Cigarette e-Cigarette/Vaping Use: Never Used Second Hand Smoke Exposure: No service: No Current occupational status: retired Cognitive needs: No Hearing needs: No Vision needs: Yes (reading glasses) Review of Systems Const Denies chills, Denies fatigue, Denies fever(s), Denies frequent falls, Denies weakness, Denies weight gain and Denies weight loss ENT Denies dizziness Card Denies chest pain, Denies leg edema, Denies lightheadedness, Denies palpitations, Denies dyspnea, Denies dyspnea on exertion, Denies orthopnea and Denies other (loss of consciousness) Resp Denies cough, Denies dyspnea and Denies dyspnea on exertion GI Denies hematochezia and Denies change in stool character Musc Denies abnormal gait, Denies muscle weakness, Denies numbness, Denies radiating pain into limb and Denies tingling Neuro Denies abnormal gait, Denies dizziness, Denies frequent falls, Denies numbness, Denies tingling and Denies weakness Endo Denies fatigue and Denies palpitations Physical Exam Vital Signs: Last Vital Signs Pulse 65 03/20/23 10:05 BP 118/80 03/20/23 10:05 BMI result Body Mass Index 25.8 Const General: cooperative, comfortable, no acute distress, alert and awake Nutritional Appearance: average body habitus Orientation/consciousness: patient oriented x3 Limitations: no limitations Neck Neck: Yes trachea midline, Yes supple and Yes no JVD Resp Effort & Inspection: normal respiratory effort Auscultation: clear to auscultation bilaterally Cardio Jugular venous distension: no JVD Palpation: normal PMI Rate: regular rate Rhythm: regular rhythm Heart sounds: S1 normal heart sound present and S2 normal heart sound present Skin General skin exam: no rashes or lesions noted Neuro General: patient oriented x3 and no focal motor deficits Extrem General: Yes no clubbing, cyanosis or edema Psych Appearance: grossly normal Affect: Anxious affect present Office Procedures Cardiac Device Check Cardiac Device Check Details: Dual-chamber [place] pacemaker in place. Programmed in DDDR at 60 beats per minute. No episodes of atrial fibrillation noted. Atrial pacing 89% of the time. Atrial pacing thresholds adequate and in our capture mode. Ventricular pacing thresholds adequate. Atrial ventricular sensing is adequate. Pacing lead impedance is stable. Battery life is at about 10 years [id number] Cardiac Device Check, pacemaker dual lead Procedure code (CPT) selection complete EKG Details: EKG shows normal sinus rhythm with normal EKG 33881-[id number], Complete Assessment & Plan Assessment & Plan (1) Paroxysmal atrial fibrillation: Comment: Dr. Kingston pacemaker July 2018 Code(s): I48.0 - Paroxysmal atrial fibrillation Plan: Paroxysmal atrial fibrillation which has remained suppressed on current metoprolol therapy. There is also no evidence of nonsustained ventricular tachycardia. Normal structure of the heart. Continue metoprolol therapy. Continue full oral anticoagulation, currently on Eliquis 5 mg b.i.d.. Semi annual renal function test is recommended. Avoidance of stimulants was discussed advised to call me with any new symptoms. No indication for antiarrhythmic drug therapy at this point in time. (2) Cardiac pacemaker in situ: Code(s): Z95.0 - Presence of cardiac pacemaker Plan: Cardiac pacemaker in-situ for sick sinus syndrome. Pacemaker is working well. Reprogrammed for adequate function. Will follow remotely every 3 months. Follow up in the clinic in 6 months time. Follow up in the clinic in 6 months time, sooner p.r.n.. Thank you for allowing me to partake in her care Coding Level of Care Code Est Pt Level 4 (41360) Diagnoses Paroxysmal atrial fibrillation I48.0 Cardiac pacemaker in situ Z95.0 CPT Codes Cardiac Device Check - Cardiac Device 2: 16137-[id number] Cardiac Device Check, pacemaker dual lead ([id number]) EKG - CPT: 23961-[id number], Complete ([id number])
[2023-03-20 10:05] VITALS: BP 118/80; PULSE 65; BMI 25.8
== END 2023-03-20 10:23 | disposition home or self-care (01) ==
PROVIDERS: Visit Provider Internal Medicine Cardiovascular Disease
DX: I48.0 Paroxysmal atrial fibrillation (principal); Z95.0 Presence of cardiac pacemaker
CPT/HCPCS: 93280; 99214

== ENCOUNTER → 2023-03-20 10:03 | Outpatient (BNVA) | payer MEDICARE, SELFPAY | PROVIDERS: Visit Provider Internal Medicine Cardiovascular Disease | DX: Z45.018 Encounter for adjustment and management of other part of cardiac pacemaker (principal); I48.0 Paroxysmal atrial fibrillation | CPT/HCPCS: 93005; 93280; 99212 ==

== ENCOUNTER 2023-04-04 10:45 | Outpatient (REF) | payer MEDICARE, SELFPAY ==
--- NOTE | ~2023-04-04 | MM_ITS ---
EXAMINATION: BONE DENSITOMETRY CLINICAL INDICATION: Asymptomatic menopausal state. COMPARISON: Previous BD dated 12/17/2020 and baseline BD dated 01/23/2013. TECHNIQUE: Using a [employer] DXA System (software version: 13.1) manufactured by [employer], dual-energy x-ray absorptiometry was performed of the lumbar spine and left hip. The images are of good technical quality. Summary results are attached. FINDINGS: AP SPINE L1-L4: Current: BMD 1.148 g/cm2, Z-score 1.2, T-score -0.3, normal, 2.0% increase from previous, 1.7% increase from baseline (<5% change is not significant). Prior: BMD 1.126 g/cm2. Baseline: BMD 1.129 g/cm2. LEFT FEMUR, NECK: Current: BMD 0.801 g/cm2, Z-score 0.1, T-score -1.7, osteopenia. Prior: BMD 0.805 g/cm2. Baseline: BMD 0.850 g/cm2. LEFT FEMUR, TOTAL: Current: BMD 0.798 g/cm2, Z-score 0.0, T-score -1.7, osteopenia, 5.2% decrease from previous, 2.3% decrease from baseline (<5% change is not significant). Prior: BMD 0.842 g/cm2. Baseline: BMD 0.817 g/cm2. IDENTIFIED RISK FACTORS: Menopause. HISTORY OF FRACTURE: None listed. MEDICATIONS: Vitamin D. MM/XR DEXA axial skeleton IMPRESSION: 1. DIAGNOSIS: Osteopenia based on the lowest T-score value of -1.7 in the femoral neck and total femur applying World Health Organization criteria. 2. 10-YEAR FRACTURE RISK PREDICTION, FRAX: Major osteoporotic fracture (clinical spine, forearm, hip or shoulder) 13.8%. Hip fracture 3.5%. 3. Treatment Recommendations: NOF guidelines recommend consideration for treatment in postmenopausal women and men age 50 and older presenting with the following: -A hip or vertebral (clinical or morphometric) fracture. -T-score less than or equal to -2.5 at the femoral neck or spine after appropriate evaluation to exclude secondary causes. -Low bone mass at the hip or spine and a 10-year fracture probability by FRAX of greater than or equal to 3% for hip fracture or greater than or equal to 20% for major osteoporotic fracture based on the [place] adapted WHO algorithm. 4. Other Recommendations: All treatment decisions require clinical judgment and consideration of individual patient factors, including patient preferences, comorbidities, previous drug use, risk factors not captured in the FRAX model (e.g. frailty, falls, vitamin D deficiency, increased bone turnover, interval significant decline in bone density) and possible under or overestimation of fracture risk by FRAX. Additional medical evaluation for secondary cause of low bone mineral density may be appropriate. FUTURE SCAN RECOMMENDATION: People with diagnosed cases of osteoporosis or at high risk for fracture should have regular bone mineral density tests. For patients eligible for Medicare, routine testing is allowed once every 2 years. The testing frequency can be increased to one year for patients who have rapidly progressing disease, those who are receiving or discontinuing medical therapy to restore bone mass, or have additional risk factors.
== END 2023-04-04 10:46 | disposition home or self-care (01) ==
LOC: HO.MAMMO 10:45
PROVIDERS: PCP Internal Medicine; Visit Provider Nurse Practitioner Family
DX: Z13.820 Encounter for screening for osteoporosis (principal); Z78.0 Asymptomatic menopausal state
CPT/HCPCS: 77080

== ENCOUNTER → 2023-05-02 23:59 | Outpatient (BNV) | payer MEDICARE, SELFPAY ==
--- NOTE | 2023-05-02 09:50 | MHC.OFFVIS ---
Intake Intake Visit Reasons: Remote Device Check- [place] Allergies Seasonal Allergies Allergy (Unknown, Verified 03/06/23 10:09) Unknown tizanidine Allergy (Unknown, Verified 03/06/23 10:09) LETHARGY garlic Adverse Reaction (Mild, Verified 03/06/23 10:09) SICK [facility] Medical History Cough Cardiac pacemaker in situ Cervical spondylosis Tubular adenoma of colon Tarlov cyst Osteoarthritis, knee Carpal tunnel syndrome Sick sinus syndrome Paroxysmal atrial fibrillation Hypercholesterolemia Urge incontinence Osteopenia Surgical History History of colonoscopy History of permanent cardiac pacemaker placement History of knee replacement, total History of carpal tunnel release History of biopsy of bladder History of cataract surgery Family History Father MVA (motor vehicle accident) Mother Acute CVA (cerebrovascular accident) Maternal Grandmother Stomach cancer Paternal Grandmother Breast cancer Paternal Aunt Breast cancer Social History Housing: House Alcohol intake: never Patient Tobacco Use Status: Former Tobacco user Tobacco use type: Cigarette e-Cigarette/Vaping Use: Never Used Second Hand Smoke Exposure: No service: No Current occupational status: retired Cognitive needs: No Hearing needs: No Vision needs: Yes (reading glasses) Office Procedures Cardiac Device Check Cardiac Device Check Details: Remote pacemaker report generated 05/02/2022. Pacemaker function is adequate. One episode of PMT noted [id number] Cardiac Device Interrogation, pacemaker Procedure code (CPT) selection complete Assessment & Plan Assessment & Plan (1) Cardiac pacemaker in situ: Code(s): Z95.0 - Presence of cardiac pacemaker Plan: See above Coding Level of Care Code Procedure Only Diagnoses Cardiac pacemaker in situ Z95.0 CPT Codes Cardiac Device Check - Cardiac Device 12: [id number] Cardiac Device Interrogation, pacemaker ([id number])
== END ==
PROVIDERS: PCP Internal Medicine; Visit Provider Internal Medicine Cardiovascular Disease
DX: I49.5 Sick sinus syndrome (principal); Z95.0 Presence of cardiac pacemaker
CPT/HCPCS: 93294

== ENCOUNTER 2023-05-08 14:17 | Outpatient (AMB) | payer MEDICARE, SELFPAY ==
--- NOTE | 2023-05-08 14:35 | A.OFFVIS_ITS ---
Intake Vital Signs 05/08/23 14:38 Height 5 ft 8 in Weight 175 lb 4.28 oz BMI 26.6 BP 118/70 Blood Pressure Location Lt brachial Position Sitting Pulse 60 Pulse Source Pulse Oximeter Pulse Oximetry (%) 98 Oxygen Delivery Method Room Air Intake Visit Reasons: Cough Intake Note: Pt reports having a cough since June 2022 but she thinks it is from her sinuses draining. When she coughs she usually brings up white mucus. She is taking Mucinex with a cough suppressant twice a day to help with her coughing but did not take any today 05/08/23. Allergies Seasonal Allergies Allergy (Unknown, Verified 05/08/23 15:13) Unknown tizanidine Allergy (Unknown, Verified 05/08/23 15:13) LETHARGY garlic Adverse Reaction (Mild, Verified 05/08/23 15:13) SICK Medication List - Last Reconciled 05/08/23 by Monika Cordova MD apixaban (Eliquis) 5 mg PO BID 90 days atorvastatin 20 mg PO DAILY cephalexin 500 mg PO 4 capsule 1 hour prior to procedure; cholecalciferol (vitamin D3) 25 mcg PO DAILY estradiol 0.01%(0.1mg/gram) 1 g vaginal 3XW famotidine (Pepcid) 20 mg PO BEDTIME 90 days [id number] 1,500-165-67.5 mg (Krill Oil ([place] 3 and 6)) caps PO loratadine 10 mg PO DAILY metoprolol succinate ER 75 mg (1.5 x 50 mg) PO DAILY 90 days [id number]-FA-vit K-lut 8 mg iron-400 mcg-50 mcg (Centrum Silver Women) 1 tab PO DAILY oxybutynin chloride ER 5 mg PO BID solifenacin 5 mg PO DAILY Do you need a note to return to daycare/school/sports/work: No HPI Cough HPI Details This 78 years old very pleasant female is being seen for the 1st time. Her chief complaint is cough is since June 2022. She does not know exactly but may have had a bout of acute respiratory infection, and afterwards she continue to have cough with some expectoration. She has had no fever or chills. Also has no wheezing or shortness of breath on exertion. About 4 weeks ago she was treated with a course of doxycycline 100 mg b.i.d. for 10 days, and she also started using Mucinex with DM tablet twice a day. Her cough got much better. She thinks it got better after taking doxycycline. She still continues to have some fullness and irritation in the throat which makes her cough. She has a feeling of postnasal discharge with need to clear her throat She has history of smoking in the remote past for about 12-15 years and was able to quit back in 1977. She had a chest x-ray in October 2022 which did not show any acute lung disease. She had pulmonary function test did in October 2022, which did not show any obstructive or restrictive pulmonary disorder. [facility] Medical History (Updated 05/08/23 @ 15:30 by Monika Cordova MD) Allergic rhinosinusitis Cough Cardiac pacemaker in situ Cervical spondylosis Tubular adenoma of colon Tarlov cyst Osteoarthritis, knee Carpal tunnel syndrome Sick sinus syndrome Paroxysmal atrial fibrillation Hypercholesterolemia Urge incontinence Osteopenia Surgical History History of colonoscopy History of permanent cardiac pacemaker placement History of knee replacement, total History of carpal tunnel release History of biopsy of bladder History of cataract surgery Family History Father MVA (motor vehicle accident) Mother Acute CVA (cerebrovascular accident) Maternal Grandmother Stomach cancer Paternal Grandmother Breast cancer Paternal Aunt Breast cancer Social History Housing: House Alcohol intake: never Patient Tobacco Use Status: Former Tobacco user Tobacco use type: Cigarette e-Cigarette/Vaping Use: Never Used Second Hand Smoke Exposure: No service: No Current occupational status: retired Cognitive needs: No Hearing needs: No Vision needs: Yes (reading glasses) Review of Systems Const All systems reviewed & are unremarkable except as noted in HPI and below Eyes Reports no additional complaints ENT Reports nasal congestion (mild) and Reports nasal discharge (She has feeling of postnasal discharge most of the time.) Card Reports irregular heart rhythm (Paroxysmal atrial fib/ has had pacemaker) Resp Reports as per HPI GI Reports heartburn (GERD symptoms controlled with Pepcid AC) Musc Reports no additional complaints Skin/Breast Reports system reviewed and no additional complaints, except as documented Neuro Reports no additional complaints Psych Reports no additional complaints Endo Reports no additional complaints Bandar/Lymph Reports no additional complaints Physical Exam Vital Signs: Last Vital Signs Pulse 60 05/08/23 14:38 BP 118/70 05/08/23 14:38 Pulse Ox 98 05/08/23 14:38 Oxygen Delivery Method Room Air 05/08/23 14:38 BMI result Body Mass Index 26.6 Const General: healthy appearing, comfortable, no acute distress, alert and awake Orientation/consciousness: patient oriented x3 HEENT Head: Yes normal to inspection General nose exam: No nasal polyps present, No nasal discharge present and Other nasal findings present (Mild nasal congestion) Face and sinus: Yes sinuses nontender Mouth: oropharynx normal Throat: Yes posterior oropharynx normal Eyes General: appearance normal, both eyes and all related structures Neck Neck: Yes normal visual inspection, Yes no lymphadenopathy, Yes trachea midline and Yes no JVD Thyroid: Thyroid normal Chest Chest palpation & inspection: normal inspection of the chest, normal palpation of entire chest wall and no tenderness Resp Effort & Inspection: normal respiratory effort Auscultation: clear to auscultation bilaterally, no crackles and no wheezes Cardio Palpation: normal PMI Rate: regular rate Rhythm: regular rhythm Heart sounds: no gallops and no murmurs Peripheral pulses: Peripheral pulses 2+ throughout GI Palpation (GI): Soft to palpation, nontender, No hepatosplenomegaly present and no masses Auscultation: normal bowel sounds Back/Spine/Pelvis Thoracic/Lumbar Spine: thoracic and lumbar spine normal to inspection Skin General skin exam: no rashes or lesions noted Neuro General: patient oriented x3 and no focal motor deficits Cranial nerves: Yes CN's II-XII intact bilaterally Extrem General: Yes normal to inspection, Yes no clubbing, cyanosis or edema and Yes no calf tenderness Psych Appearance: grossly normal and well kempt Speech and movement: Normal speech and movement present Results Reviewed Results Reviewed: CHEST XRAY 11/23/22 No significant abnormality is noted involving the heart, lungs, mediastinum, bony thorax or soft tissues. There is chronic thickening anterior aspect of a major fissure on lateral view. Dual-chamber pacemaker in place.. PFT . 11/23/22. No obstructive or restrictive pulmonary disorder. DLCO slightly decreased ( 62%) Assessment & Plan Assessment & Plan (1) Allergic rhinosinusitis: Comment: History of cough for almost 1 year, improved after a course of doxycycline, and with cough medicine including Mucinex with DM. Code(s): J30.9 - Allergic rhinitis, unspecified Plan: As she still has some residual cough I think she will benefit from 1 more course of doxycycline 100 mg b.i.d.. Advise that she can use the cough medicine .once or twice a day as needed She should also try to use steam inhalation 2 or 3 times a day if she feels more congested. May also use loratadine 10 mg once a day p.r.n. (2) Cough: Comment: Cough most likely secondary to rhinosinusitis Code(s): R05.9 - Cough, unspecified Plan: Course of doxycycline 100 mg b.i.d. for 10 days. Use Mucinex with DM 1 tablet b.i.d. for control of cough. Medications: New doxycycline hyclate 100 mg PO BID 20 tabs 0RF Rhinosinusitis 10 days Coding Level of Care Code New Pt Level 3 (47213) Diagnoses Allergic rhinosinusitis J30.9 Cough R05.9
[2023-05-08 14:38] VITALS: BP 118/70; PULSE 60; O2SAT 98; BMI 26.6
== END 2023-05-08 15:11 | disposition home or self-care (01) ==
PROVIDERS: PCP Internal Medicine; Referring Provider Internal Medicine; Visit Provider Internal Medicine
DX: J30.9 Allergic rhinitis, unspecified (principal); R05.9 Cough, unspecified
CPT/HCPCS: 99213

== ENCOUNTER → 2023-05-08 14:17 | Outpatient (BNVA) | payer MEDICARE, SELFPAY | PROVIDERS: PCP Internal Medicine; Referring Provider Internal Medicine; Visit Provider Internal Medicine | DX: J30.9 Allergic rhinitis, unspecified (principal); R05.9 Cough, unspecified | CPT/HCPCS: 99212 ==

== ENCOUNTER 2023-06-04 12:55 | Outpatient (AMB) | payer MEDICARE, SELFPAY ==
--- NOTE | 2023-06-04 12:56 | A.OFFPC_ITS ---
Vital Signs 06/04/23 12:57 Height 5 ft 8 in Weight 173 lb BMI 26.3 BP 124/62 Blood Pressure Location Lt brachial Position Sitting Pulse 75 Pulse Source Pulse Oximeter Pulse Oximetry (%) 98 Oxygen Delivery Method Room Air Intake Visit Reasons: cholesterol. cough, Mole on back painful Allergies Seasonal Allergies Allergy (Unknown, Verified 06/04/23 12:57) Unknown tizanidine Allergy (Unknown, Verified 06/04/23 12:57) LETHARGY garlic Adverse Reaction (Mild, Verified 06/04/23 12:57) SICK Tobacco use date assessed: 06/04/23 Fall risk assessment: No Falls in past year Last assessed Fall Risk: 06/04/23 Dental Screening Dental Screen Date: 06/04/23 Did you have a dental visit in the last 12 months?: Yes Did you have a dental problem in the last 6 months where you did not have access to dental care?: No Was dental information given to patient?: Patient has dentist HPI cholesterol. cough HPI Details 78-year-old female with atrial fibrillat ion on anticoagulation hypercholesterolemia GERD impaired glucose tolerance last seen in January 2023. Patient is here for follow-up. Patient's colonoscopy has been done already mammogram is up-to-date patient follows up with Pulmonary for the cough diagnosis of allergic rhinosinusitis improved with doxycycline advised loratadine and steam inhalation. Patient also follows up with Cardiology pacemaker placed in 2018 on metoprolol semiannual renal function test. allergy and had sinusitis and treated with doxycycline. - cough is better. , uses also nasal saline wash [facility] Medical History (Updated 05/08/23 @ 15:30 by Monika Cordova MD) Allergic rhinosinusitis Cough Cardiac pacemaker in situ Cervical spondylosis Tubular adenoma of colon Tarlov cyst Osteoarthritis, knee Carpal tunnel syndrome Sick sinus syndrome Paroxysmal atrial fibrillation Hypercholesterolemia Urge incontinence Osteopenia Surgical History History of colonoscopy History of permanent cardiac pacemaker placement History of knee replacement, total History of carpal tunnel release History of biopsy of bladder History of cataract surgery Family History Father MVA (motor vehicle accident) Mother Acute CVA (cerebrovascular accident) Maternal Grandmother Stomach cancer Paternal Grandmother Breast cancer Paternal Aunt Breast cancer Social History Housing: House Alcohol intake: never Patient Tobacco Use Status: Former Tobacco user Tobacco use type: Cigarette e-Cigarette/Vaping Use: Never Used Second Hand Smoke Exposure: No service: No Current occupational status: retired Cognitive needs: No Hearing needs: No Vision needs: Yes (reading glasses) Questionnaire PHQ-9 Over the last 2 weeks, how often have you been bothered by any of the following problems? 1. Little interest or pleasure in doing things: not at all 2. Feeling down, depressed, or hopeless: not at all 3. Trouble falling or staying asleep, or sleeping too much: not at all 4. Feeling tired or having little energy: not at all 5. Poor appetite or overeating: not at all 6. Feeling bad about yourself - or that you are a failure or have let yourself or your family down: not at all 7. Trouble concentrating on things, such as reading the newspaper or watching television: not at all 8. Moving or speaking so slowly that other people could have noticed. Or the opposite - being so fidgety or restless that you have been moving around a lot more than usual: not at all 9. Thoughts that you would be better off or of hurting yourself in some way: not at all Total score: 0 Depression Screening Interpretation: Negative Depression Screening Done: Yes 51653 - PHQ-9 Billing: Yes Source: Developed by Drs. Al May, Meghan Hackett, Robby Rios and colleagues, with an educational jose from [employer]. Thrive Questionnaire Date Thrive assessed: 06/04/23 I am a: Patient What is your living situation today?: I have a steady place to live Within the past 12 months, did the food you bought not last and you didn't have the money to get more?: Never true Within the past 12 months, did you worry whether your food would run out before you got money to buy more?: Never true Do you have trouble paying for medicines?: No Do you have trouble getting transportation to medical appointments?: No Do you have trouble paying your heating and electricity bill?: No Do you have trouble taking care of your child, family member or friend?: No Do you have trouble with day-to-day activities such as bathing, preparing meals, shopping, managing finances, etc.?: No Are you currently unemployed and looking for a job?: No Are you interested in more education?: No Currently or been in a relationship where the following occur: no concerns reported THRIVE Score: 0 AUDIT C Alcohol Use Questionnaire (AUDIT-C) 1. How often do you have a drink containing alcohol?: Monthly or less 2. How many drinks containing alcohol do you have on a typical day when you are drinking?: 1 or 2 Total Score: 1 Score Reviewed/Action Taken: No RAFAEL-7 AMB Questionnaire RAFAEL-7 Date RAFAEL - 7 assessed: 06/04/23 Feeling nervous, anxious, or on edge: 0 = Not at all Not being able to stop or control worryin = Not at all Worrying too much about different things: 0 = Not at all Trouble relaxin = Not at all Being so restless that it is hard to sit still: 0 = Not at all Becoming easily annoyed or irritable: 0 = Not at all Feeling afraid as if something awful might happen: 0 = Not at all Total RAFAEL-7 score (0-4 normal; 5-9 mild; 10-14 moderate; 15-21 severe): 0 Source: Developed by Drs. Al May, Meghan Hackett, Robby Rios and colleagues, with an educational jose from [employer]. Physical exam (Primary Care) Vital Signs: Last Vital Signs Pulse 75 06/04/23 12:57 BP 124/62 06/04/23 12:57 Pulse Ox 98 06/04/23 12:57 Oxygen Delivery Method Room Air 06/04/23 12:57 BMI result Body Mass Index 26.3 Tobacco/Smoking Status: Tobacco use Status Tobacco use date assessed 06/04/23 06/04/23 13:02 Patient Tobacco Use Status Former Tobacco user 06/04/23 13:02 Tobacco use type Cigarette 06/04/23 13:02 e-Cigarette/Vaping Use Never Used 06/04/23 13:02 PHQ-9: PHQ-9 Score PHQ-9: Total score 0 06/04/23 13:02 Depression Screening Interpretation: Negative Thrive Assessment: Date of Thrive Assessment Date Thrive assessed 06/04/23 06/04/23 13:02 Currently or been in a relationship where the following occur: no concerns reported Const General: alert; No acute distress Eyes Conjunctivae: conjunctivae normal Resp Auscultation: clear to auscultation bilaterally Cardio Rate: regular rate Rhythm: regular rhythm GI Inspection: Yes normal to inspection Extrem General: Yes normal to inspection and No edema Assessment and Plan Assessment & Plan (1) Hypercholesterolemia: Code(s): E78.00 - Pure hypercholesterolemia, unspecified Plan: Avoid fried foods, chicken skin, eggs, butter margarine, pastries and meat. Be it pork or beef they have a lot of cholesterol LDL goal of less than 130 and triglyceride of less than 150. On atorvastatin 20 mg once a day. skin tab noted xon the back and has some mild inflammation (2) Sick sinus syndrome: Code(s): I49.5 - Sick sinus syndrome Plan: Pacemaker placed and under surveillance from Cardiology (3) Cardiac pacemaker in situ: Code(s): Z95.0 - Presence of cardiac pacemaker Plan: Patient follows up with Cardiology (4) Paroxysmal atrial fibrillation: Comment: Dr. Kingston pacemaker July 2018 Code(s): I48.0 - Paroxysmal atrial fibrillation Plan: Continue with metoprolol and on the anticoagulation January 2023 last renal function test advised twice a day year. (5) Urinary incontinence: Comment: Dr. galindo sacral nerve roots electrode implant May 2020 Code(s): R32 - Unspecified urinary incontinence Qualifiers: Urinary Incontinence type: mixed stress and urge incontinence Qualified Code(s): N39.46 - Mixed incontinence Plan: Continue on oxybutynin and VESIcare (6) GERD (gastroesophageal reflux disease): Code(s): K21.9 - Gastro-esophageal reflux disease without esophagitis Plan: Avoid the foods that causes that usually spicy foods, tomato products, juices, coffee, soda and foods that your sensitive to. After eating do not lie down, allow 3-4 hours before in lie down. And keep the head of bed above 30 degrees to avoid the acid from going up. (7) Impaired glucose tolerance: Code(s): R73.02 - Impaired glucose tolerance (oral) Plan: Decrease the amount of carbohydrate intake, pasta, bread, rice and potatoes are all sugar and that is aside from all the sweet stuff, remember that fruits are good but they are Sweet also. (8) Cough: Comment: Cough most likely secondary to rhinosinusitis Code(s): R05.9 - Cough, unspecified Plan: Patient follows up with Pulmonary and has been placed on loratadine for allergies. Orders: Orders Complete Blood Count Auto Diff 3 Months I48.0 - Paroxysmal atrial fibrillation Comprehensive Met. Panel 3 Months I48.0 - Paroxysmal atrial fibrillation Thyroid Stimulating Hormone 3 Months I48.0 - Paroxysmal atrial fibrillation Free T4 (Free Thyroxine) 3 Months I48.0 - Paroxysmal atrial fibrillation Coding Level of Care Code Est Pt Level 4 (64585) Diagnoses Hypercholesterolemia E78.00 Sick sinus syndrome I49.5 Cardiac pacemaker in situ Z95.0 Paroxysmal atrial fibrillation I48.0 Mixed stress and urge urinary incontinence N39.46 Urinary Incontinence type: mixed stress and urge incontinence GERD (gastroesophageal reflux disease) K21.9 Impaired glucose tolerance R73.02 Cough R05.9
[2023-06-04 12:57] VITALS: BP 124/62; PULSE 75; O2SAT 98; BMI 26.3
== END 2023-06-04 13:18 | disposition home or self-care (01) ==
PROVIDERS: PCP Internal Medicine; Visit Provider Internal Medicine
DX: E78.00 Pure hypercholesterolemia, unspecified (principal); I49.5 Sick sinus syndrome; Z95.0 Presence of cardiac pacemaker; I48.0 Paroxysmal atrial fibrillation; N39.46 Mixed incontinence; K21.9 Gastro-esophageal reflux disease without esophagitis; R73.02 Impaired glucose tolerance (oral); R05.9 Cough, unspecified
CPT/HCPCS: 99214

== ENCOUNTER → 2023-08-01 23:59 | Outpatient (BNV) | payer MEDICARE, SELFPAY ==
--- NOTE | 2023-08-02 14:35 | MHC.OFFVIS ---
Intake Intake Visit Reasons: Remote device check- [facility] Allergies Seasonal Allergies Allergy (Unknown, Verified 06/04/23 12:57) Unknown tizanidine Allergy (Unknown, Verified 06/04/23 12:57) LETHARGY garlic Adverse Reaction (Mild, Verified 06/04/23 12:57) [facility] Medical History (Updated 05/08/23 @ 15:30 by Monika Cordova MD) Allergic rhinosinusitis Cough Cardiac pacemaker in situ Cervical spondylosis Tubular adenoma of colon Tarlov cyst Osteoarthritis, knee Carpal tunnel syndrome Sick sinus syndrome Paroxysmal atrial fibrillation Hypercholesterolemia Urge incontinence Osteopenia Surgical History History of colonoscopy History of permanent cardiac pacemaker placement History of knee replacement, total History of carpal tunnel release History of biopsy of bladder History of cataract surgery Family History Father MVA (motor vehicle accident) Mother Acute CVA (cerebrovascular accident) Maternal Grandmother Stomach cancer Paternal Grandmother Breast cancer Paternal Aunt Breast cancer Social History Housing: House Alcohol intake: never Patient Tobacco Use Status: Former Tobacco user Tobacco use type: Cigarette e-Cigarette/Vaping Use: Never Used Second Hand Smoke Exposure: No service: No Current occupational status: retired Cognitive needs: No Hearing needs: No Vision needs: Yes (reading glasses) Office Procedures Cardiac Device Check Cardiac Device Check Details: Remote pacemaker report generated 08/01/2023. Pacemaker function is adequate [id number] Cardiac Device Interrogation, pacemaker Procedure code (CPT) selection complete Assessment & Plan Assessment & Plan (1) Cardiac pacemaker in situ: Code(s): Z95.0 - Presence of cardiac pacemaker Plan: See above Coding Level of Care Code Procedure Only Diagnoses Cardiac pacemaker in situ Z95.0 CPT Codes Cardiac Device Check - Cardiac Device 12: [id number] Cardiac Device Interrogation, pacemaker ([id number])
== END ==
PROVIDERS: PCP Internal Medicine; Visit Provider Internal Medicine Cardiovascular Disease
DX: Z45.018 Encounter for adjustment and management of other part of cardiac pacemaker (principal)
CPT/HCPCS: 93294

== ENCOUNTER 2023-09-10 11:09 | Outpatient (REF) | payer MEDICARE, SELFPAY ==
[2023-09-10 11:38] LABS: MANUAL DIFF FLAG NO
[2023-09-10 12:18] LABS: Basophils Absolute Auto 0.1 X10*3/uL (0.0-0.2); Basophils Percent Auto 0.9 % (0-2); Eosinophils Absolute Auto 0.3 X10*3/uL (0.0-0.4); Eosinophils Percent Auto 5.7 % (0-4); Hematocrit 42.5 % (37.0-47.0); Hemoglobin 13.9 g/dl (12.0-16.0); Imm Gran Abs Auto 0.01 X10*3/uL (0.00-0.03); Imm Gran Pct Auto 0.2 % (0.0-0.4); Lymphocytes Percent Auto 37.4 % (20-40); Mean Corpuscular HGB Conc 32.7 g/dl (31.0-35.0); Mean Corpuscular Hemoglobin 30.7 pg (27.0-33.0); Mean Corpuscular Volume 93.8 fL (80.0-98.0); Mean Platelet Volume 8.8 fL (9.4-12.3); Monocytes Absolute Auto 0.4 X10*3/uL (0.1-1.2); Monocytes Percent Auto 7.9 % (2-11); Neutrophils Absolute Auto 2.6 x10*3/uL (2.0-8.3); Neutrophils Percent Auto 47.9 % (45-73); Platelet Count 243 X10*3/uL (160-400); Red Blood Count 4.53 X10*6/uL (4.20-5.50); Red Cell Distribution Width 13.8 % (11.0-16.0); White Blood Count 5.4 X10*3/uL (4.8-10.8)
[2023-09-10 12:48] LABS: Alanine Aminotransferase 16 U/L (0-31); Alkaline Phosphatase 87 U/L (39-117); Anion Gap 13 (12-20); Aspartate Amino Transferase 20 U/L (5-31); Bilirubin Total 0.5 mg/dL (0.0-1.0); Blood Urea Nitrogen 17 mg/dL (9-16); Calcium 9.2 mg/dL (8.4-10.2); Carbon Dioxide 27 mmol/L (22-29); Chloride 106 mmol/L (96-108); Estimated Glomerular Filt Rate > 60; Glucose Random 110 mg/dL (60-115); Potassium 4.7 mmol/L (3.3-5.1); Sodium 141 mmol/L (135-145); Total Protein 6.9 g/dL (6.5-8.0)
[2023-09-10 13:03] LABS: Free T4 (Free Thyroxine) 0.86 ng/dL (0.71-1.85); Thyroid Stimulating Hormone 3.38 uIU/mL (0.32-4.0)
== END 2023-09-10 11:10 | disposition home or self-care (01) ==
LOC: HO.LAB 11:09
PROVIDERS: PCP Internal Medicine; Visit Provider Internal Medicine
DX: I48.0 Paroxysmal atrial fibrillation (principal)
CPT/HCPCS: 36415; 80053; 84439; 84443; 85025

== ENCOUNTER 2023-09-17 14:44 | Outpatient (AMB) | payer MEDICARE, SELFPAY ==
--- NOTE | 2023-09-17 14:58 | MHC.OFFVIS ---
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 Allergies Seasonal Allergies Allergy (Unknown, Verified 06/04/23 12:57) Unknown tizanidine Allergy (Unknown, Verified 06/04/23 12:57) LETHARGY garlic Adverse Reaction (Mild, Verified 06/04/23 12:57) SICK Medication List - Last Reconciled 09/17/23 by Zackary Kingston MD apixaban (Eliquis) 5 mg PO BID atorvastatin 20 mg PO DAILY cholecalciferol (vitamin D3) 25 mcg PO DAILY estradiol 0.01%(0.1mg/gram) 1 g vaginal 3XW famotidine (Pepcid) 20 mg PO BEDTIME 90 days [id number]-ldb-zs2-aoc-astx 1,500-165-67.5 mg (Krill Oil ([place] 3 and 6)) caps PO loratadine 10 mg PO DAILY metoprolol succinate ER 75 mg (1.5 x 50 mg) PO DAILY 90 days fpazcrdb-ttn-vizu-FA-vit K-lut 8 mg iron-400 mcg-50 mcg (Centrum Silver Women) 1 tab PO DAILY oxybutynin chloride ER 5 mg PO BID solifenacin 5 mg PO DAILY HPI Comments Details: Erika comes for follow-up of her pacemaker atrial fibrillation. She is doing very well from cardiac perspective. She denies any symptoms of palpitations or prolonged irregular heartbeat. Denies any lightheadedness, syncope. No exertional shortness of breath, orthopnea, PND. Takes all her medications. No bleeding issues or neurologic events. [facility] Medical History Allergic rhinosinusitis Cough Cardiac pacemaker in situ Cervical spondylosis Tubular adenoma of colon Tarlov cyst Osteoarthritis, knee Carpal tunnel syndrome Sick sinus syndrome Paroxysmal atrial fibrillation Hypercholesterolemia Urge incontinence Osteopenia Surgical History History of colonoscopy History of permanent cardiac pacemaker placement History of knee replacement, total History of carpal tunnel release History of biopsy of bladder History of cataract surgery Family History Father MVA (motor vehicle accident) Mother Acute CVA (cerebrovascular accident) Maternal Grandmother Stomach cancer Paternal Grandmother Breast cancer Paternal Aunt Breast cancer Social History Housing: House Alcohol intake: never Patient Tobacco Use Status: Former Tobacco user Tobacco use type: Cigarette e-Cigarette/Vaping Use: Never Used Second Hand Smoke Exposure: No service: No Current occupational status: retired Cognitive needs: No Hearing needs: No Vision needs: Yes (reading glasses) Review of Systems Const Denies chills, Denies fatigue, Denies fever(s), Denies frequent falls, Denies weakness, Denies weight gain and Denies weight loss ENT Denies dizziness Card Denies chest pain, Denies leg edema, Denies lightheadedness, Denies palpitations, Denies dyspnea, Denies dyspnea on exertion, Denies orthopnea and Denies other (loss of consciousness) Resp Denies cough, Denies dyspnea and Denies dyspnea on exertion GI Denies hematochezia and Denies change in stool character Musc Denies abnormal gait, Denies muscle weakness, Denies numbness, Denies radiating pain into limb and Denies tingling Neuro Denies abnormal gait, Denies dizziness, Denies frequent falls, Denies numbness, Denies tingling and Denies weakness Endo Denies fatigue and Denies palpitations Physical Exam Vital Signs: Last Vital Signs Pulse 60 09/17/23 14:59 BP 120/72 09/17/23 14:59 BMI result Body Mass Index 26.1 Const General: cooperative, comfortable, no acute distress, alert and awake Nutritional Appearance: average body habitus Orientation/consciousness: patient oriented x3 Limitations: no limitations Neck Neck: Yes trachea midline, Yes supple and Yes no JVD Resp Effort & Inspection: normal respiratory effort Auscultation: clear to auscultation bilaterally Cardio Jugular venous distension: no JVD Palpation: normal PMI Rate: regular rate Rhythm: regular rhythm Heart sounds: S1 normal heart sound present and S2 normal heart sound present Skin General skin exam: no rashes or lesions noted Neuro General: patient oriented x3 and no focal motor deficits Extrem General: Yes no clubbing, cyanosis or edema Psych Appearance: grossly normal Affect: Anxious affect present Office Procedures Cardiac Device Check Cardiac Device Check Details: Dual-chamber [facility] pacemaker in place. Programmed in DDDR at 60 beats per minute. Atrial pacing 88% of time. No episodes of atrial fibrillation noted. Atrial ventricular sensing is adequate. Atrial ventricular capture thresholds adequate. Pacing lead impedance is stable. Battery life is at 5-5 and half years. [id number] Cardiac Device Check, pacemaker dual lead Procedure code (CPT) selection complete Assessment & Plan Assessment & Plan (1) Paroxysmal atrial fibrillation: Comment: Dr. Kingston pacemaker July 2018 Code(s): I48.0 - Paroxysmal atrial fibrillation Category: Medical Plan: Paroxysmal atrial fibrillation has remained suppressed and has done well with rhythm control approach. Continue metoprolol therapy. Avoidance of stimulants was discussed. Continue full oral anticoagulation, currently on Eliquis 5 mg b.i.d.. Semi annual renal function test should be pursued. Avoidance of stimulants was discussed advised to call me with any symptoms. Will follow atrial fibrillation also remotely via pacer telemetry. (2) Cardiac pacemaker in situ: Code(s): Z95.0 - Presence of cardiac pacemaker Category: Medical Plan: Cardiac pacemaker in-situ, working well for sick sinus syndrome. Pacemaker was reprogrammed for adequate function. Will follow remotely for pacer check every 3 months. Follow up in the clinic in 6 months time, sooner p.r.n. after an echocardiogram. Thank you for allowing me to partake in the care Coding Level of Care Code Est Pt Level 4 (55840) Diagnoses Paroxysmal atrial fibrillation I48.0 Cardiac pacemaker in situ Z95.0 CPT Codes Cardiac Device Check - Cardiac Device 2: [id number] Cardiac Device Check, pacemaker dual lead ([id number])
[2023-09-17 14:59] VITALS: BP 120/72; PULSE 60; BMI 26.1
== END 2023-09-17 15:44 | disposition home or self-care (01) ==
PROVIDERS: PCP Internal Medicine; Visit Provider Internal Medicine Cardiovascular Disease
DX: I48.0 Paroxysmal atrial fibrillation (principal); Z95.0 Presence of cardiac pacemaker
CPT/HCPCS: 93280; 99214

== ENCOUNTER → 2023-09-17 14:44 | Outpatient (BNVA) | payer MEDICARE, SELFPAY | PROVIDERS: PCP Internal Medicine; Visit Provider Internal Medicine Cardiovascular Disease | DX: Z45.018 Encounter for adjustment and management of other part of cardiac pacemaker (principal); I48.0 Paroxysmal atrial fibrillation | CPT/HCPCS: 93280; 99212 ==

== ENCOUNTER 2023-09-20 10:27 | Outpatient (AMB) | payer MEDICARE, SELFPAY ==
[2023-09-20 10:41] VITALS: BP 128/72; PULSE 75; O2SAT 98; BMI 26.9
--- NOTE | 2023-09-20 10:41 | MHC.PC.OV ---
Vital Signs 09/20/23 10:41 Height 5 ft 8 in Weight 177 lb BMI 26.9 BP 128/72 Blood Pressure Location Lt brachial Position Sitting Pulse 75 Pulse Source Pulse Oximeter Pulse Oximetry (%) 98 Oxygen Delivery Method Room Air Intake Visit Reasons: a fib Allergies Seasonal Allergies Allergy (Unknown, Verified 09/20/23 10:41) Unknown tizanidine Allergy (Unknown, Verified 09/20/23 10:41) LETHARGY garlic Adverse Reaction (Mild, Verified 09/20/23 10:41) SICK Tobacco use date assessed: 06/04/23 Fall risk assessment: 1 Fall in past year Last assessed Fall Risk: 09/20/23 Dental Screening Dental Screen Date: 06/04/23 HPI a fib HPI Details 78-year-old female with hypercholesterolemia sick sinus syndrome with a pacemaker atrial fibrillation GERD impaired glucose tolerance with urinary incontinence coming in for follow-up. Last seen in May 2023. Patient has had cough for long time and was seen by Pulmonary placed on allergy medication. Patient was seen by Cardiology for pacemaker check in August 2023 stable for the atrial fibrillation on metoprolol the them control anticoagulation renal function to be checked twice a day year [facility] Medical History Allergic rhinosinusitis Cough Cardiac pacemaker in situ Cervical spondylosis Tubular adenoma of colon Tarlov cyst Osteoarthritis, knee Carpal tunnel syndrome Sick sinus syndrome Paroxysmal atrial fibrillation Hypercholesterolemia Urge incontinence Osteopenia Surgical History History of colonoscopy History of permanent cardiac pacemaker placement History of knee replacement, total History of carpal tunnel release History of biopsy of bladder History of cataract surgery Family History Father MVA (motor vehicle accident) Mother Acute CVA (cerebrovascular accident) Maternal Grandmother Stomach cancer Paternal Grandmother Breast cancer Paternal Aunt Breast cancer Social History Housing: House Alcohol intake: never Patient Tobacco Use Status: Former Tobacco user Tobacco use type: Cigarette e-Cigarette/Vaping Use: Never Used Second Hand Smoke Exposure: No service: No Current occupational status: retired Cognitive needs: No Hearing needs: No Vision needs: Yes (reading glasses) Questionnaire PHQ-9 Over the last 2 weeks, how often have you been bothered by any of the following problems? 1. Little interest or pleasure in doing things: not at all 2. Feeling down, depressed, or hopeless: not at all 3. Trouble falling or staying asleep, or sleeping too much: not at all 4. Feeling tired or having little energy: not at all 5. Poor appetite or overeating: not at all 6. Feeling bad about yourself - or that you are a failure or have let yourself or your family down: not at all 7. Trouble concentrating on things, such as reading the newspaper or watching television: not at all 8. Moving or speaking so slowly that other people could have noticed. Or the opposite - being so fidgety or restless that you have been moving around a lot more than usual: not at all 9. Thoughts that you would be better off or of hurting yourself in some way: not at all Total score: 0 Depression Screening Interpretation: Negative Depression Screening Done: Yes 32429 - PHQ-9 Billing: Yes Source: Developed by Drs. Al May, Meghan Hackett, Robby Rios and colleagues, with an educational jose from [employer]. Thrive Questionnaire Date Thrive assessed: 06/04/23 AUDIT C Alcohol Use Questionnaire (AUDIT-C) 1. How often do you have a drink containing alcohol?: Monthly or less 2. How many drinks containing alcohol do you have on a typical day when you are drinking?: 1 or 2 Total Score: 1 Score Reviewed/Action Taken: No RAFAEL-7 AMB Questionnaire RAFAEL-7 Date RAFAEL - 7 assessed: 06/04/23 Source: Developed by Drs. Al May, Robby Laguna and colleagues, with an educational jose from [employer]. Physical exam (Primary Care) Vital Signs: Last Vital Signs Pulse 75 09/20/23 10:41 BP 128/72 09/20/23 10:41 Pulse Ox 98 09/20/23 10:41 Oxygen Delivery Method Room Air 09/20/23 10:41 BMI result Body Mass Index 26.9 Tobacco/Smoking Status: Tobacco use Status Tobacco use date assessed 06/04/23 09/20/23 10:42 Patient Tobacco Use Status Former Tobacco user 09/20/23 10:42 Tobacco use type Cigarette 09/20/23 10:42 e-Cigarette/Vaping Use Never Used 09/20/23 10:42 PHQ-9: PHQ-9 Score PHQ-9: Total score 0 09/20/23 10:42 Depression Screening Interpretation: Negative Thrive Assessment: Date of Thrive Assessment Date Thrive assessed 06/04/23 09/20/23 10:42 Const General: alert; No acute distress Eyes Conjunctivae: conjunctivae normal Resp Auscultation: clear to auscultation bilaterally Cardio Rate: regular rate Rhythm: regular rhythm GI Inspection: Yes normal to inspection Extrem General: Yes normal to inspection and No edema Assessment and Plan Assessment & Plan (1) Paroxysmal atrial fibrillation: Comment: Dr. Kingston pacemaker July 2018 Code(s): I48.0 - Paroxysmal atrial fibrillation Plan: Continue with anticoagulation with Eliquis and twice a day year of blood work August 2022 last blood work continue with metoprolol (2) Sick sinus syndrome: Code(s): I49.5 - Sick sinus syndrome Plan: Pacemaker check done by Cardiology (3) Cardiac pacemaker in situ: Code(s): Z95.0 - Presence of cardiac pacemaker Plan: Patient follows up with Cardiology (4) Hypercholesterolemia: Code(s): E78.00 - Pure hypercholesterolemia, unspecified Plan: Avoid fried foods, chicken skin, eggs, butter margarine, pastries and meat. Be it pork or beef they have a lot of cholesterol LDL goal of less than 130 and triglyceride of less than 150 on atorvastatin 20 mg once a day January 2023 last blood work (5) GERD (gastroesophageal reflux disease): Code(s): K21.9 - Gastro-esophageal reflux disease without esophagitis Plan: Avoid the foods that causes that usually spicy foods, tomato products, juices, coffee, soda and foods that your sensitive to. After eating do not lie down, allow 3-4 hours before in lie down. And keep the head of bed above 30 degrees to avoid the acid from going up. (6) Osteopenia: Code(s): M85.80 - Other specified disorders of bone density and structure, unspecified site Plan: Discussed about repeat bone density (7) Impaired glucose tolerance: Code(s): R73.02 - Impaired glucose tolerance (oral) Plan: Decrease the amount of carbohydrate intake, pasta, bread, rice and potatoes are all sugar and that is aside from all the sweet stuff, remember that fruits are good but they are Sweet also. (8) Urinary incontinence: Comment: Dr. galindo sacral nerve roots electrode implant May 2020 Code(s): R32 - Unspecified urinary incontinence Qualifiers: Urinary Incontinence type: mixed stress and urge incontinence Qualified Code(s): N39.46 - Mixed incontinence Plan: Patient declined increasing the VESIcare to 10 mg once a day but would rather have the 5 mg twice a day Orders: Orders Complete Blood Count Auto Diff 6 Months I48.0 - Paroxysmal atrial fibrillation Comprehensive Met. Panel 6 Months I48.0 - Paroxysmal atrial fibrillation Vitamin B12 and Folate 6 Months I48.0 - Paroxysmal atrial fibrillation Hemoglobin A1c 6 Months I48.0 - Paroxysmal atrial fibrillation Free T4 (Free Thyroxine) 6 Months I48.0 - Paroxysmal atrial fibrillation Thyroid Stimulating Hormone 6 Months I48.0 - Paroxysmal atrial fibrillation Lipid Panel 6 Months E78.00 - Pure hypercholesterolemia, unspecified, I48.0 - Paroxysmal atrial fibrillation Vitamin D 25-OH Total 6 Months I48.0 - Paroxysmal atrial fibrillation UA CC w/rflx Micro + Cult 6 Months I48.0 - Paroxysmal atrial fibrillation, R30.0 - Dysuria Magnesium 6 Months I48.0 - Paroxysmal atrial fibrillation Medications: New solifenacin 5 mg PO BID 180 tabs 2RF N39.46 - Mixed incontinence Refilled atorvastatin 20 mg PO DAILY 90 tabs 2RF E78.00 - Pure hypercholesterolemia, unspecified cephalexin 500 mg PO 4 capsule 1 hour prior to procedure; 32 caps 0RF R73.02 - Impaired glucose tolerance (oral) Coding Level of Care Code Est Pt Level 4 (37705) Diagnoses Paroxysmal atrial fibrillation I48.0 Sick sinus syndrome I49.5 Cardiac pacemaker in situ Z95.0 Hypercholesterolemia E78.00 GERD (gastroesophageal reflux disease) K21.9 Osteopenia M85.80 Impaired glucose tolerance R73.02 Mixed stress and urge urinary incontinence N39.46 Urinary Incontinence type: mixed stress and urge incontinence
== END 2023-09-20 11:17 | disposition home or self-care (01) ==
PROVIDERS: PCP Internal Medicine; Visit Provider Internal Medicine
DX: I48.0 Paroxysmal atrial fibrillation (principal); I49.5 Sick sinus syndrome; Z95.0 Presence of cardiac pacemaker; E78.00 Pure hypercholesterolemia, unspecified; K21.9 Gastro-esophageal reflux disease without esophagitis; M85.80 Other specified disorders of bone density and structure, unspecified site; R73.02 Impaired glucose tolerance (oral); N39.46 Mixed incontinence
CPT/HCPCS: 99214

== ENCOUNTER → 2023-10-31 23:59 | Outpatient (BNV) | payer MEDICARE, SELFPAY ==
--- NOTE | 2023-11-05 14:23 | MHC.OFFVIS ---
Intake Visit Reasons: Remote device check- [facility] Allergies Seasonal Allergies Allergy (Unknown, Verified 09/20/23 10:41) Unknown tizanidine Allergy (Unknown, Verified 09/20/23 10:41) LETHARGY garlic Adverse Reaction (Mild, Verified 09/20/23 10:41) [facility] Medical History Allergic rhinosinusitis Cough Cardiac pacemaker in situ Cervical spondylosis Tubular adenoma of colon Tarlov cyst Osteoarthritis, knee Carpal tunnel syndrome Sick sinus syndrome Paroxysmal atrial fibrillation Hypercholesterolemia Urge incontinence Osteopenia Surgical History History of colonoscopy History of permanent cardiac pacemaker placement History of knee replacement, total History of carpal tunnel release History of biopsy of bladder History of cataract surgery Family History Father MVA (motor vehicle accident) Mother Acute CVA (cerebrovascular accident) Maternal Grandmother Stomach cancer Paternal Grandmother Breast cancer Paternal Aunt Breast cancer Social History Housing: House Alcohol intake: never Patient Tobacco Use Status: Former Tobacco user Tobacco use type: Cigarette e-Cigarette/Vaping Use: Never Used Second Hand Smoke Exposure: No service: No Current occupational status: retired Cognitive needs: No Hearing needs: No Vision needs: Yes (reading glasses) Office Procedures Cardiac Device Check Cardiac Device Check Details: Remote pacemaker report generated 10/31/2023. Pacemaker function is adequate. Atrial pacing 87% of time. No sustained episodes of atrial fibrillation noted [id number] Cardiac Device Interrogation, pacemaker Procedure code (CPT) selection complete Assessment & Plan Assessment & Plan (1) Cardiac pacemaker in situ: Code(s): Z95.0 - Presence of cardiac pacemaker Category: Medical Plan: See above Coding Level of Care Code Procedure Only Diagnoses Cardiac pacemaker in situ Z95.0 CPT Codes Cardiac Device Check - Cardiac Device 12: [id number] Cardiac Device Interrogation, pacemaker ([id number])
== END ==
PROVIDERS: PCP Internal Medicine; Visit Provider Internal Medicine Cardiovascular Disease
DX: I48.91 Unspecified atrial fibrillation (principal); Z95.0 Presence of cardiac pacemaker
CPT/HCPCS: 93294

== ENCOUNTER 2023-12-20 13:47 | Outpatient (AMB) | payer MEDICARE, SELFPAY ==
--- NOTE | 2023-12-20 13:48 | A.OFFPC_ITS ---
Intake Visit Reasons: ? Sinus Infection Allergies Seasonal Allergies Allergy (Unknown, Verified 12/20/23 13:48) Unknown tizanidine Allergy (Unknown, Verified 12/20/23 13:48) LETHARGY garlic Adverse Reaction (Mild, Verified 12/20/23 13:48) SICK Medication List - Last Reconciled 12/20/23 by Vannessa Barber MD apixaban (Eliquis) 5 mg PO BID atorvastatin 20 mg PO DAILY azithromycin (Zithromax) For 250 mg dose pack: take 500 mg today (day 1), then 250 mg for 4 days (days 2-5) PO cephalexin 500 mg PO 4 capsule 1 hour prior to procedure; cholecalciferol (vitamin D3) 25 mcg PO DAILY estradiol 0.01%(0.1mg/gram) 1 g vaginal 3XW famotidine (Pepcid) 20 mg PO BEDTIME 90 days [id number]-[id number]-ewt-qxj-mb3-ydm-astx 1,500-165-67.5 mg (Krill Oil ([place] 3 and 6)) caps PO loratadine 10 mg PO DAILY metoprolol succinate ER 75 mg (1.5 x 50 mg) PO DAILY 90 days ulzpttru-dxo-rgog-FA-vit K-lut 8 mg iron-400 mcg-50 mcg (Centrum Silver Women) 1 tab PO DAILY oxybutynin chloride ER 5 mg PO BID solifenacin 5 mg PO BID Tobacco use date assessed: 06/04/23 Fall risk assessment: 1 Fall in past year Last assessed Fall Risk: 12/20/23 Dental Screening Dental Screen Date: 06/04/23 HPI ? Sinus Infection HPI Details 78-year-old female with the history of s ick sinus syndrome on pacemaker paroxysmal atrial fibrillation, hypercholesterolemia GERD impaired glucose tolerance coming in through Telehealth for an acute problem. this am R retroorbital pain withcongestion, no fevers, , has a dog at home , no sore throat, no cough , has been sneezing a lot. takes muciex., no diarrhea. deny fall or problem [facility] Medical History Allergic rhinosinusitis Cough Cardiac pacemaker in situ Cervical spondylosis Tubular adenoma of colon Tarlov cyst Osteoarthritis, knee Carpal tunnel syndrome Sick sinus syndrome Paroxysmal atrial fibrillation Hypercholesterolemia Urge incontinence Osteopenia Surgical History History of colonoscopy History of permanent cardiac pacemaker placement History of knee replacement, total History of carpal tunnel release History of biopsy of bladder History of cataract surgery Family History Father MVA (motor vehicle accident) Mother Acute CVA (cerebrovascular accident) Maternal Grandmother Stomach cancer Paternal Grandmother Breast cancer Paternal Aunt Breast cancer Social History Housing: House Alcohol intake: never Patient Tobacco Use Status: Former Tobacco user Tobacco use type: Cigarette e-Cigarette/Vaping Use: Never Used Second Hand Smoke Exposure: No service: No Current occupational status: retired Cognitive needs: No Hearing needs: No Vision needs: Yes (reading glasses) Questionnaire Thrive Questionnaire Date Thrive assessed: 06/04/23 RAFAEL-7 AMB Questionnaire RAFAEL-7 Date RAFAEL - 7 assessed: 06/04/23 Source: Developed by Drs. Al May, Meghan Hackett, Robby Rios and colleagues, with an educational jose from [employer]. Physical exam (Primary Care) Tobacco/Smoking Status: Tobacco use Status Tobacco use date assessed 06/04/23 12/20/23 13:50 Patient Tobacco Use Status Former Tobacco user 12/20/23 13:50 Tobacco use type Cigarette 12/20/23 13:50 e-Cigarette/Vaping Use Never Used 12/20/23 13:50 Thrive Assessment: Date of Thrive Assessment Date Thrive assessed 06/04/23 12/20/23 13:50 Telehealth Telehealth Telehealth Platform: Telephone Location of provider rendering services: practice address Location of patient: address on file Patient Identification confirmed using: Name, : Yes Telehealth method: video Patient verbally consented to treatment: Yes Patient verbally consented to billing insurance company: Yes Patient informed of any privacy concerns related to visit: Yes Minutes spent on Phone/Video with Pt.: 15 Assessment and Plan Assessment & Plan (1) Nasal congestion: Code(s): R09.81 - Nasal congestion Plan: Patient has been advised to increase oral fluids. Advised to take Angelique 180 mg once a day in if the congestion persist antibiotic was sent. Medications: New azithromycin (Zithromax) For 250 mg dose pack: take 500 mg today (day 1), then 250 mg for 4 days (days 2-5) PO 6 tabs 0RF R09.81 - Nasal congestion Coding Level of Care Code Tele Est Pt Level 3 (72443) Diagnoses Nasal congestion R09.81
== END 2023-12-20 17:35 | disposition home or self-care (01) ==
LOC: HO.HMGH 13:47
PROVIDERS: PCP Internal Medicine; Visit Provider Internal Medicine
DX: R09.81 Nasal congestion (principal)
CPT/HCPCS: 99213; 99442

== ENCOUNTER 2024-01-04 11:57 | Outpatient (REF) | payer MEDICARE, SELFPAY ==
--- NOTE | ~2024-01-04 | MM_ITS ---
EXAMINATION: MM SCREENING DIGITAL BREAST TOMOSYNTHESIS, BILATERAL CLINICAL INFORMATION: Screening. Asymptomatic. COMPARISON: Mammography: Comparison is made with available priors TECHNIQUE: Digital breast mammography with tomosynthesis is performed in both the craniocaudal and mediolateral oblique views along with computer-aided detection (CAD). FINDINGS: There are scattered areas of fibroglandular density (ACR BI-RADS breast composition Category b). Pacemaker overlies and obscures the superior posterior left breast on MLO view. There are no significant masses, abnormal calcifications, or other abnormalities. MM/MM tomosynthesis screening BI IMPRESSION: No mammographic evidence of malignancy. ASSESSMENT: BI-RADS BI-RADS 1 - Negative RECOMMENDATION: Routine annual mammography screening. 1 year F/U This examination should not preclude the clinical evaluation of a suspicious palpable abnormality. This patient's information was entered into a reminder system with a target due date for their next mammogram. Electronically signed by: Fanta Li DO 01/20/2024 06:41 PM EDT
== END 2024-01-04 11:58 | disposition home or self-care (01) ==
LOC: HO.MAMMO 11:57
PROVIDERS: PCP Internal Medicine; Visit Provider Internal Medicine
DX: Z12.31 Encounter for screening mammogram for malignant neoplasm of breast (principal)
CPT/HCPCS: 77063; 77067

== ENCOUNTER → 2024-01-04 12:15 | Outpatient (BNV) | payer MEDICARE, SELFPAY | PROVIDERS: PCP Internal Medicine; Visit Provider Internal Medicine | DX: Z12.31 Encounter for screening mammogram for malignant neoplasm of breast (principal) | CPT/HCPCS: 77063; 77067 ==

== ENCOUNTER → 2024-01-30 23:59 | Outpatient (BNV) | payer MEDICARE, SELFPAY ==
--- NOTE | 2024-01-30 15:48 | A.OFFVIS_ITS ---
Intake Visit Reasons: Remote device check- [facility] Allergies Seasonal Allergies Allergy (Unknown, Verified 12/20/23 13:48) Unknown tizanidine Allergy (Unknown, Verified 12/20/23 13:48) LETHARGY garlic Adverse Reaction (Mild, Verified 12/20/23 13:48) [facility] Medical History Allergic rhinosinusitis Cough Cardiac pacemaker in situ Cervical spondylosis Tubular adenoma of colon Tarlov cyst Osteoarthritis, knee Carpal tunnel syndrome Sick sinus syndrome Paroxysmal atrial fibrillation Hypercholesterolemia Urge incontinence Osteopenia Surgical History History of colonoscopy History of permanent cardiac pacemaker placement History of knee replacement, total History of carpal tunnel release History of biopsy of bladder History of cataract surgery Family History Father MVA (motor vehicle accident) Mother Acute CVA (cerebrovascular accident) Maternal Grandmother Stomach cancer Paternal Grandmother Breast cancer Paternal Aunt Breast cancer Social History Housing: House Alcohol intake: never Patient Tobacco Use Status: Former Tobacco user Tobacco use type: Cigarette e-Cigarette/Vaping Use: Never Used Second Hand Smoke Exposure: No service: No Current occupational status: retired Cognitive needs: No Hearing needs: No Vision needs: Yes (reading glasses) Office Procedures Cardiac Device Check Cardiac Device Check Details: Remote pacemaker report generated 01/30/2024. Pacemaker function is adequate. No episodes of atrial fibrillation noted [id number] Cardiac Device Interrogation, pacemaker Procedure code (CPT) selection complete Assessment & Plan Assessment & Plan (1) Cardiac pacemaker in situ: Code(s): Z95.0 - Presence of cardiac pacemaker Category: Medical Plan: See above Coding Level of Care Code Procedure Only Diagnoses Cardiac pacemaker in situ Z95.0 CPT Codes Cardiac Device Check - Cardiac Device 12: [id number] Cardiac Device Interrogation, pacemaker ([id number])
== END ==
PROVIDERS: PCP Internal Medicine; Visit Provider Internal Medicine Cardiovascular Disease
DX: Z45.018 Encounter for adjustment and management of other part of cardiac pacemaker (principal)
CPT/HCPCS: 93294

== ENCOUNTER 2024-03-03 11:15 | Outpatient (REF) | payer MEDICARE, SELFPAY ==
[2024-03-03 13:13] LABS: MANUAL DIFF FLAG NO
[2024-03-03 13:16] LABS: Basophils Percent Auto 0.6 % (0-2); Eosinophils Absolute Auto 0.2 X10*3/uL (0.0-0.4); Eosinophils Percent Auto 4.5 % (0-4); Hematocrit 42.1 % (37.0-47.0); Hemoglobin 13.8 g/dl (12.0-16.0); Imm Gran Abs Auto 0.01 X10*3/uL (0.00-0.03); Imm Gran Pct Auto 0.2 % (0.0-0.4); Lymphocytes Absolute Auto 2.2 X10*3/uL (1.2-4.9); Lymphocytes Percent Auto 41.5 % (20-40); Mean Corpuscular HGB Conc 32.8 g/dl (31.0-35.0); Mean Corpuscular Hemoglobin 31.1 pg (27.0-33.0); Mean Corpuscular Volume 94.8 fL (80.0-98.0); Mean Platelet Volume 8.8 fL (9.4-12.3); Monocytes Absolute Auto 0.5 X10*3/uL (0.1-1.2); Monocytes Percent Auto 8.7 % (2-11); Neutrophils Absolute Auto 2.4 x10*3/uL (2.0-8.3); Neutrophils Percent Auto 44.5 % (45-73); Platelet Count 259 X10*3/uL (160-400); Red Blood Count 4.44 X10*6/uL (4.20-5.50); Red Cell Distribution Width 13.6 % (11.0-16.0); White Blood Count 5.3 X10*3/uL (4.8-10.8)
[2024-03-03 13:37] LABS: Appearance Urine Cloudy; Color Urine Yellow; Estimated Average Glucose 123 mg/dL; Glucose Urine UA Negative (Negative); Hemoglobin A1C 145.0187 umol/L; Hemoglobin A1c % 5.9 % (<6.0); Leukocyte Esterase Urine Small (1+) (Negative); Nitrite Urine Negative (Negative); Total Hemoglobin (HGBA1C) 3514.6239 umol/L; UMIC TRIGGER UACC YES; Urine Blood Negative (Negative); Urine Ketones Negative (Negative); Urine Protein Negative (Neg-Trace)
[2024-03-03 13:51] LABS: Bacteria Urine Trace (None Seen); Hyaline Casts Urine 0-2 /LPF (0-2); Squamous Epithelial Cell Urine >20 /HPF (0-2); UACC Culture Trigger YES
[2024-03-03 13:52] LABS: RBC Urine 0-2 /HPF (0-2)
[2024-03-03 14:12] LABS: Alanine Aminotransferase 25 U/L (0-31); Albumin Level 4.1 g/dL (3.5-5.0); Alkaline Phosphatase 94 U/L (39-117); Anion Gap 12 (12-20); Aspartate Amino Transferase 28 U/L (5-31); Bilirubin Total 0.5 mg/dL (0.0-1.0); Blood Urea Nitrogen 17 mg/dL (9-16); Calcium 9.2 mg/dL (8.4-10.2); Carbon Dioxide 28 mmol/L (22-29); Chloride 105 mmol/L (96-108); Cholesterol 213 mg/dL (<200); Estimated Glomerular Filt Rate > 60; Glucose Random 108 mg/dL (60-115); HDL Cholesterol 84 mg/dL (>40); LDL Cholesterol Calculated 111 mg/dL (<100); Magnesium 2.2 mg/dL (1.6-2.6); Potassium 4.1 mmol/L (3.3-5.1); Sodium 141 mmol/L (135-145); Triglycerides 92 mg/dL (<150)
[2024-03-03 14:19] LABS: Free T4 (Free Thyroxine) 0.96 ng/dL (0.71-1.85); Thyroid Stimulating Hormone 3.82 uIU/mL (0.32-4.0); Vitamin D 25-OH Total 67.2 ng/mL (>30)
[2024-03-03 14:31] LABS: Folate 15.9 ng/mL (> or = 4.0); Vitamin B12 731 pg/mL (200-900)
== END 2024-03-03 11:16 | disposition home or self-care (01) ==
LOC: HO.10HDL 11:15
PROVIDERS: Visit Provider Internal Medicine
DX: I48.0 Paroxysmal atrial fibrillation (principal); E78.00 Pure hypercholesterolemia, unspecified; R30.0 Dysuria
CPT/HCPCS: 36415; 80053; 80061; 81001; 82306; 82607; 82746; 83036; 83735; 84439; 84443; 85025; 87086

== ENCOUNTER → 2024-03-10 10:50 | Outpatient (REF) | payer MEDICARE, SELFPAY ==
--- NOTE | 2024-03-10 10:52 | CA_ITS ---
Transthoracic Echocardiogram Patient (Last, First, Middle): Erika Melchor R Gender: Female Date of : 1945 Age: 79 Procedure Date: 03/10/2024 Procedure Type: Transthoracic Echocardiogram Location: OP Height: 172.72 cm Weight: 76.2 kg BSA: 1.90 m2 Heart Rate: 60 bpm BP: 122 / 70 mmHg Visual Lead: SB Referring MD: Zackary Kingston MD Symptoms: I48.0 - Paroxysmal atrial fibrillation Study Quality: Adequate ECG Rhythm: Sinus Conclusions: - The left ventricular systolic function is normal. The calculated ejection fraction is 55% by biplane method. - Evidence suggests grade II (moderate) diastolic dysfunction. - There is mild posterior mitral leaflet prolapse. There is trace mitral valve regurgitation. Findings Left Ventricle Normal left ventricular cavity size. The left ventricular systolic function is normal. The calculated ejection fraction is 55% by biplane method. There is no evidence of regional wall motion abnormalities. E/E prime ratio is >15, consistent with elevated filling pressures. Evidence suggests grade II (moderate) diastolic dysfunction. There is mild septal asymmetric hypertrophy. Right Ventricle Normal right ventricular cavity size and systolic function. Atria Both atria are normal in size. Aortic Valve There is a normal trileaflet aortic valve. There is mild calcification of the aortic valve. There is no aortic valve stenosis. There is no aortic valve regurgitation. Mitral Valve There is mild posterior mitral leaflet prolapse. There is trace mitral valve regurgitation. There is no mitral valve stenosis. Pulmonic Valve The pulmonic valve is likely normal. Tricuspid Valve There is mild tricuspid valve regurgitation. There is no evidence of pulmonary hypertension. Great Vessels The asc aorta is normal in size. Venous The inferior vena cava is normal in size and collapses greater than 50% with inspiration. Pericardium/Pleural There is a trivial pericardial effusion. Prior Study Comparison No significant change compared to prior study dated: 12/30/2021. Measurements 2D Linear Measurements IVSd: 1.06 0.6-0.9/0.6-1.0 cm LVIDd: 4.93 3.9-5.3/4.2-5.9 cm LVIDd Index: 2.59 2.4-3.2/2.2-3.1 cm/m2 LVIDs: 3.03 2.0-3.6 cm LVPWd: 0.80 0.7-1.1 cm LA Diam: 3.80 2.7-3.8/3.0-4.0 cm LAIDs Index: 2.00 1.5-2.3 cm/m2 LV Mass: 201.10 67-162/88-224 g LV Mass Index: 105.84 43-95/49-115 g/m2 LVOT Diam: 2.10 3.0+(-)1.3 cm 2D Systolic Function EF 4C: 56.60 >55% EF 2C: 51.90 >55% EF BiP: 54.70 >55% Mitral Valve MV Pk E: 0.79 MV PK A: 0.85 MV Decel Time: 356.00 E/A: 0.90 E'Lateral: 3.15 E'Medial: 3.81 E/E' Med: 20.70 E/E' Lat: 25.00 PHT: 104.00 MVA PHT: 2.12 Decel [place]: 2.21 Aortic Valve AoV Pk Mathew: 1.53 AoV Mn Mathew: 1.16 AoV VTI: 0.35 AoV Pk Grad: 9.00 Aov Mn Grad: 6.00 JOSR Cont.VTI: 1.94 LVOT LVOT Pk Mathew: 0.93 LVOT Mn Mathew: 0.62 LVOT VTI: 0.20 LVOT Pk Grad: 3.00 LVOT Mn Grad: 2.00 LVOT Diam: 2.10 LVOT Area: 3.46 Diastolic Function MV Pk E: 0.79 MV Pk A: 0.85 E/A: 0.90 E'Medial: 3.81 E/E' Med: 20.70 E' Laterial: 3.15 E/E' Lat: 25.00 Right Ventricle TAPSE (mm): 25.00 TVS' Mathew: 12.40 Tricuspid Valve TR Pk Mathew: 2.07 TR Pk Grad: 17.00 RA Press: 3.00 RVSP: 20.00 Great Vessels Aorta Sinus of Valsalva: 3.60 2.0-3.5 cm Ao Asc: 3.20 2.1-3.4 cm Pulmonary Veins Pulm Vein S/D 1.20 Pulmonary Valve PV Pk Mathew: 0.80 Peak PV Grad: 3.00 Updated in Other Vendor System with Status of Final Telly Feliciano MD electronically signed on 03/11/2024 9:22:55 AM with status of Final
== END ==
LOC: HO.CARD 10:50
PROVIDERS: PCP Internal Medicine; Visit Provider Internal Medicine Cardiovascular Disease
DX: I48.0 Paroxysmal atrial fibrillation (principal)
CPT/HCPCS: 93306

== ENCOUNTER → 2024-03-10 10:52 | Outpatient (BNV) | payer MEDICARE, SELFPAY | PROVIDERS: PCP Internal Medicine; Visit Provider Internal Medicine | DX: I34.1 Nonrheumatic mitral (valve) prolapse (principal); I42.2 Other hypertrophic cardiomyopathy; I35.8 Other nonrheumatic aortic valve disorders; I36.1 Nonrheumatic tricuspid (valve) insufficiency | CPT/HCPCS: 93306 ==

== ENCOUNTER 2024-03-11 10:12 | Outpatient (AMB) | payer MEDICARE, SELFPAY ==
[2024-03-11 10:18] VITALS: BP 118/80; PULSE 61; O2SAT 98; BMI 26.6
--- NOTE | 2024-03-11 10:18 | A.OFFVIS_ITS ---
Intake Vital Signs 03/11/24 10:18 Height 5 ft 8 in Weight 175 lb BMI 26.6 BP 118/80 Blood Pressure Location Lt brachial Position Sitting Pulse 61 Pulse Source Pulse Oximeter Pulse Oximetry (%) 98 Oxygen Delivery Method Room Air Intake Visit Reasons: AWV Allergies Seasonal Allergies Allergy (Unknown, Verified 03/11/24 10:18) Unknown tizanidine Allergy (Unknown, Verified 03/11/24 10:18) LETHARGY garlic Adverse Reaction (Mild, Verified 03/11/24 10:18) SICK Medication List - Last Reconciled 03/11/24 by Vannessa Barber MD apixaban (Eliquis) 5 mg PO BID atorvastatin 20 mg PO DAILY cephalexin 500 mg PO 4 capsule 1 hour prior to procedure; cholecalciferol (vitamin D3) 25 mcg PO DAILY estradiol 0.01%(0.1mg/gram) 1 g vaginal 3XW famotidine (Pepcid) 20 mg PO BEDTIME 90 days [id number]-imc-yff-yr5-hrp-astx 1,500-165-67.5 mg (Krill Oil ([place] 3 and 6)) caps PO metoprolol succinate ER 75 mg (1.5 x 50 mg) PO DAILY 90 days dtmnqtai-ojf-seml-FA-vit K-lut 8 mg iron-400 mcg-50 mcg (Centrum Silver Women) 1 tab PO DAILY oxybutynin chloride ER 5 mg PO .QD solifenacin 5 mg PO BID HPI AWV HPI Details 79-year-old female with a history of atr ial fibrillation hypercholesterolemia sick sinus syndrome with a pacemaker GERD impaired glucose tolerance coming in for an annual well visit. Last seen in December 19 for nasal congestion. Patient's bone density up-to-date 04/18/2023, mammogram is 01/18/2024 colon test is done already last 2015. As for [place] of care patient is being seen by Cardiology Dr. Kingston, pulmonary Dr. Cordova, urology [facility], Dermatology is [facility]. Echocardiogram done 03/19/2024The left ventricular systolic function is normal. The calculated ejection fraction is 55% by biplane method. - Evidence suggests grade II (moderate) diastolic dysfunction. - There is mild posterior mitral leaflet prolapse. There is trace mitral valve regurgitation. [facility] Medical History Allergic rhinosinusitis Cough Cardiac pacemaker in situ Cervical spondylosis Tubular adenoma of colon Tarlov cyst Osteoarthritis, knee Carpal tunnel syndrome Sick sinus syndrome Paroxysmal atrial fibrillation Hypercholesterolemia Urge incontinence Osteopenia Surgical History History of colonoscopy History of permanent cardiac pacemaker placement History of knee replacement, total History of carpal tunnel release History of biopsy of bladder History of cataract surgery Family History Father MVA (motor vehicle accident) Mother Acute CVA (cerebrovascular accident) Maternal Grandmother Stomach cancer Paternal Grandmother Breast cancer Paternal Aunt Breast cancer Social History (Updated 03/11/24 @ 10:38 by Vannessa Barber MD) Housing: House Alcohol intake: never Patient Tobacco Use Status: Former Tobacco user Tobacco use type: Cigarette Years Smoked: stopped 1977 e-Cigarette/Vaping Use: Never Used Second Hand Smoke Exposure: No service: No Current occupational status: retired Cognitive needs: No Hearing needs: No Vision needs: Yes (reading glasses) Questionnaire Medicare Wellness Checkup What [age]?: [age] What gender do you identify with?: female During the past 4 weeks, how much have you been bothered by emotional problems such as feeling anxious, depressed, irritable, sad or downhearted, and blue?: not at all During the past 4 weeks, has your physical & emotional health limited your social activities with family, friends, neighbors, or groups?: not at all During the past 4 weeks, how much bodily pain have you generally had?: very mild pain During the past 4 weeks, was someone available to help you if you needed & wanted help?: yes, some During the past 4 weeks, what was the hardest physical activity you could do for at least 2 minutes?: moderate Can you get to places out of walking distance without help? (For eg., can you travel alone on buses, taxis or drive your car?): Yes Can you go shopping for groceries or clothes without someone's help?: Yes Can you prepare your own meals?: Yes Can you do your housework without help?: Yes Because of any health problems, do you need the help of another person with your personal care needs such as eating, bathing, dressing or getting around the house?: No Can you handle your own money without help?: Yes During the past 4 weeks, how would you rate your health in general?: very good During the past 4 weeks how have things been going for you?: very well; could hardly better Are you having difficulties driving your car?: no Do you always fasten your seat belt when you are in a car?: yes, usually During past 4 weeks, have you been bothered by the following: never: Falling or dizzy when standing up, Sexual problems?, Trouble eating well?, Teeth or denture problems?, Problems using the telephone? and Tiredness or fatigue? Have you fallen 2 or more times in the past year?: No Are you afraid of falling?: No Are you a smoker?: no During the past 4 weeks, how many drinks of wine, beer, or other alcoholic beverages did you have?: no alcohol at all Do you exercise for about 20 minutes 3 or more times a week?: yes, some of the time Have you been given information to help with the following?: yes: Keeping track of your medications? and no: Hazards in your house that might hurt you? How often do you have trouble taking medicines the way you have been told to take them?: I always take medicine as prescribed How confident are you that you can control & manage most of your health problems?: very confident What is your race?: White PHQ-9 Over the last 2 weeks, how often have you been bothered by any of the following problems? 1. Little interest or pleasure in doing things: not at all 2. Feeling down, depressed, or hopeless: not at all 3. Trouble falling or staying asleep, or sleeping too much: not at all 4. Feeling tired or having little energy: not at all 5. Poor appetite or overeating: not at all 6. Feeling bad about yourself - or that you are a failure or have let yourself or your family down: not at all 7. Trouble concentrating on things, such as reading the newspaper or watching television: not at all 8. Moving or speaking so slowly that other people could have noticed. Or the opposite - being so fidgety or restless that you have been moving around a lot more than usual: not at all 9. Thoughts that you would be better off or of hurting yourself in some way: not at all Total score: 0 Depression Screening Interpretation: Negative Depression Screening Done: Yes 35009 - PHQ-9 Billing: Yes Source: Developed by Drs. Al May, Meghan Hackett, Robby Rios and colleagues, with an educational jose from [employer]. Review of Systems Const Denies poor appetite and Denies weakness Eyes Denies no additional complaints ENT Reports Normal hearing present, Denies dizziness, Denies nasal congestion, Denies tinnitus and Denies sore throat Card Denies chest pain, Denies syncope, Denies rapid heart rate and Denies dyspnea Resp Denies cough and Denies dyspnea GI Denies change in stool character, Reports constipation, Denies diarrhea, Denies nausea and Denies vomiting Denies urinary frequency, Denies difficulty voiding and Denies dysuria Neuro Reports Normal hearing present, Denies confusion, Denies dizziness, Denies syncope and Denies weakness Psych Denies confusion Physical Exam Vital Signs: Last Vital Signs Pulse 61 03/11/24 10:18 BP 118/80 03/11/24 10:18 Pulse Ox 98 03/11/24 10:18 Oxygen Delivery Method Room Air 03/11/24 10:18 BMI result Body Mass Index 26.6 Const General: No confusion Orientation/consciousness: No confusion HEENT Head: Yes normocephalic Ears: external ears normal and TM's normal bilaterally Face and sinus: Yes normal facial exam Mouth: moist mucous membranes Throat: Yes tonsils normal Eyes Conjunctivae: conjunctivae normal Pupils: Equal, round and reactive pupils present and Pupil accommodation reflex normal Direct Ophthalmoscopy: normal light reflex Neck Neck: No lymphadenopathy Thyroid: Thyroid normal Chest Chest palpation & inspection: normal inspection of the chest Resp Effort & Inspection: normal respiratory effort and no audible wheezes Auscultation: clear to auscultation bilaterally, no crackles, no wheezes and lung sounds not diminished Cardio Rate: regular rate Rhythm: regular rhythm Peripheral pulses: radial pulses present and dorsalis pedis present GI Palpation (GI): no masses Auscultation: normal bowel sounds and normoactive bowel sounds Rectal Exam - Female: deferred Skin General skin exam: no rashes or lesions noted Rashes: no rashes Neuro General: No confusion Cranial nerves: Yes Equal, round and reactive pupils present and Yes Normal hearing present Cognition (Neuro): normal cognition Gait exam (Neuro): Normal gait present Motor exam (neuro): 5/5 motor strength present throughout Deep tendon reflexes (DTR's): Right brachioradialis reflex intensity grade: 2+, Left brachioradialis reflex intensity grade: 2+, Right patellar reflex intensity grade: 2+ and Left patellar reflex intensity grade: 2+ Extrem General: No edema Assessment & Plan Assessment & Plan (1) Medicare annual wellness visit, subsequent: Code(s): Z00.00 - Encounter for general adult medical examination without abnormal findings Plan: Patient is advised to eat healthy, keep well hydrated, keep active and have adequate sleep. (2) Hypercholesterolemia: Code(s): E78.00 - Pure hypercholesterolemia, unspecified Plan: Avoid fried foods, chicken skin, eggs, butter margarine, pastries and meat. Be it pork or beef they have a lot of cholesterol LDL goal of less than 100 and triglyceride of less than 150. (3) Paroxysmal atrial fibrillation: Comment: Dr. Kingston pacemaker July 2018 Code(s): I48.0 - Paroxysmal atrial fibrillation Plan: Continue with anticoagulation and twice a day your blood work. February 2024 last blood work (4) Sick sinus syndrome: Code(s): I49.5 - Sick sinus syndrome Plan: Patient has the pacemaker and being monitored by Cardiology (5) Urinary incontinence: Comment: Dr. galindo sacral nerve roots electrode implant May 2020 Code(s): R32 - Unspecified urinary incontinence Qualifiers: Urinary Incontinence type: mixed stress and urge incontinence Qualified Code(s): N39.46 - Mixed incontinence Plan: Continue to follow-up with urology on oxybutynin 5 mg twice a day and VESIcare 5 mg twice a day (6) Impaired glucose tolerance: Code(s): R73.02 - Impaired glucose tolerance (oral) Plan: Decrease the amount of carbohydrate intake, pasta, bread, rice and potatoes are all sugar and that is aside from all the sweet stuff, remember that fruits are good but they are Sweet also. (7) GERD (gastroesophageal reflux disease): Code(s): K21.9 - Gastro-esophageal reflux disease without esophagitis Qualifiers: Esophagitis presence: without esophagitis Qualified Code(s): K21.9 - Gastro-esophageal reflux disease without esophagitis Plan: Avoid the foods that causes that usually spicy foods, tomato products, juices, coffee, soda and foods that your sensitive to. After eating do not lie down, allow 3-4 hours before in lie down. And keep the head of bed above 30 degrees to avoid the acid from going up. Orders: Orders Complete Blood Count Auto Diff 6 Months K21.9 - Gastro-esophageal reflux diseas e without esophagitis Comprehensive Met. Panel 6 Months K21.9 - Gastro-esophageal reflux disease without esophagitis Hemoglobin A1c 6 Months K21.9 - Gastro-esophageal reflux disease without esophagitis Quality Reporting (2019) Depression/Bipolar (159/160/161/177) PHQ-9: Total score: 0 Coding Level of Care Code Medicare Subsequent (G0439) Diagnoses Medicare annual wellness visit, subsequent Z00.00 Hypercholesterolemia E78.00 Paroxysmal atrial fibrillation I48.0 Sick sinus syndrome I49.5 Mixed stress and urge urinary incontinence N39.46 Urinary Incontinence type: mixed stress and urge incontinence Impaired glucose tolerance R73.02 Gastroesophageal reflux disease without esophagitis K21.9 Esophagitis presence: without esophagitis Additional Codes PHQ-9 - 48449 - PHQ-9 Billing: Yes ([id number])
== END 2024-03-11 10:54 | disposition home or self-care (01) ==
PROVIDERS: PCP Internal Medicine; Visit Provider Internal Medicine
DX: Z00.00 Encounter for general adult medical examination without abnormal findings (principal); I48.0 Paroxysmal atrial fibrillation; I49.5 Sick sinus syndrome; E78.00 Pure hypercholesterolemia, unspecified; N39.46 Mixed incontinence; R73.02 Impaired glucose tolerance (oral); K21.9 Gastro-esophageal reflux disease without esophagitis

== ENCOUNTER → 2024-03-11 10:12 | Outpatient (BNVA) | payer MEDICARE, SELFPAY | PROVIDERS: PCP Internal Medicine; Visit Provider Internal Medicine | DX: Z00.00 Encounter for general adult medical examination without abnormal findings (principal); E78.00 Pure hypercholesterolemia, unspecified; I48.0 Paroxysmal atrial fibrillation; I49.5 Sick sinus syndrome; N39.46 Mixed incontinence; R73.02 Impaired glucose tolerance (oral); K21.9 Gastro-esophageal reflux disease without esophagitis | CPT/HCPCS: 96127 ==

== ENCOUNTER 2024-03-25 10:56 | Outpatient (AMB) | payer MEDICARE, SELFPAY ==
[2024-03-25 11:00] VITALS: BP 120/76; PULSE 60; BMI 27.1
--- NOTE | 2024-03-25 11:00 | MHC.OFFVIS ---
Vital Signs 03/25/24 11:00 Height 5 ft 8 in Weight 178 lb 9.191 oz BMI 27.1 BP 120/76 Blood Pressure Location Lt brachial Position Sitting Pulse 60 Intake Visit Reasons: 6 mth w/ [facility] ck Intake Note: 6 month follow-up with ekg and st tony check feeling good Financial Services Manager Required: No Allergies Seasonal Allergies Allergy (Unknown, Verified 03/11/24 10:18) Unknown tizanidine Allergy (Unknown, Verified 03/11/24 10:18) LETHARGY garlic Adverse Reaction (Mild, Verified 03/11/24 10:18) SICK Medication List - Last Reconciled 03/25/24 by Zackary Kingston MD apixaban (Eliquis) 5 mg PO BID atorvastatin 20 mg PO DAILY cephalexin 500 mg PO 4 capsule 1 hour prior to procedure; cholecalciferol (vitamin D3) 25 mcg PO DAILY estradiol 0.01%(0.1mg/gram) 1 g vaginal 3XW famotidine (Pepcid) 20 mg PO BEDTIME 90 days metoprolol succinate ER 75 mg (1.5 x 50 mg) PO DAILY 90 days mnjwqsfs-dlt-lmye-FA-vit K-lut 8 mg iron-400 mcg-50 mcg (Centrum Silver Women) 1 tab PO DAILY omega 0-ceq-axi-fish oil 60-90-500 mg (Fish Oil) 1 cap PO DAILY solifenacin 5 mg PO BID HPI Comments Details: Erika comes for follow-up. She has no new cardiac symptoms. Remains active for her age. Denies any exertional chest pain or shortness of breath. Denies any lightheadedness, syncope. No prolonged palpitation irregular heartbeat. No bleeding issues or neurologic events. Recent renal function appear to be within normal limits. No heart failure symptoms. Takes all her medications [facility] Medical History Allergic rhinosinusitis Cough Cardiac pacemaker in situ Cervical spondylosis Tubular adenoma of colon Tarlov cyst Osteoarthritis, knee Carpal tunnel syndrome Sick sinus syndrome Paroxysmal atrial fibrillation Hypercholesterolemia Urge incontinence Osteopenia Surgical History History of colonoscopy History of permanent cardiac pacemaker placement History of knee replacement, total History of carpal tunnel release History of biopsy of bladder History of cataract surgery Family History Father MVA (motor vehicle accident) Mother Acute CVA (cerebrovascular accident) Maternal Grandmother Stomach cancer Paternal Grandmother Breast cancer Paternal Aunt Breast cancer Social History Housing: House Alcohol intake: never Patient Tobacco Use Status: Former Tobacco user Tobacco use type: Cigarette Years Smoked: stopped 1977 e-Cigarette/Vaping Use: Never Used Second Hand Smoke Exposure: No service: No Current occupational status: retired Cognitive needs: No Hearing needs: No Vision needs: Yes (reading glasses) Review of Systems Const Denies chills, Denies fatigue, Denies fever(s), Denies frequent falls, Denies weakness, Denies weight gain and Denies weight loss ENT Denies dizziness Card Denies chest pain, Denies leg edema, Denies lightheadedness, Denies palpitations, Denies dyspnea, Denies dyspnea on exertion, Denies orthopnea and Denies other (loss of consciousness) Resp Denies cough, Denies dyspnea and Denies dyspnea on exertion GI Denies hematochezia and Denies change in stool character Musc Denies abnormal gait, Denies muscle weakness, Denies numbness, Denies radiating pain into limb and Denies tingling Neuro Denies abnormal gait, Denies dizziness, Denies frequent falls, Denies numbness, Denies tingling and Denies weakness Endo Denies fatigue and Denies palpitations Physical Exam Vital Signs: Last Vital Signs Pulse 60 03/25/24 11:00 BP 120/76 03/25/24 11:00 BMI result Body Mass Index 27.1 Const General: cooperative, comfortable, no acute distress, alert and awake Nutritional Appearance: average body habitus Orientation/consciousness: patient oriented x3 Limitations: no limitations Neck Neck: Yes trachea midline, Yes supple and Yes no JVD Resp Effort & Inspection: normal respiratory effort Auscultation: clear to auscultation bilaterally Cardio Jugular venous distension: no JVD Palpation: normal PMI Rate: regular rate Rhythm: regular rhythm Heart sounds: S1 normal heart sound present and S2 normal heart sound present Skin General skin exam: no rashes or lesions noted Neuro General: patient oriented x3 and no focal motor deficits Extrem General: Yes no clubbing, cyanosis or edema Psych Appearance: grossly normal Affect: Anxious affect present Office Procedures Cardiac Device Check Cardiac Device Check Details: Dual-chamber [place] pacemaker in place. Programmed in DDDR at 60 beats per minute. Atrial pacing 83% of time. No episodes of atrial fibrillation noted. Atrial ventricular sensing is excellent. Pacing lead impedance is stable. Ventricular pacing thresholds elevated and reprogrammed to provide adequate safety. Atrial pacing thresholds are adequate. Battery life is at about 4 years [id number] Cardiac Device Check, pacemaker dual lead Procedure code (CPT) selection complete EKG Details: EKG shows atrially paced, ventricularly sensed rhythm [id number], Complete Assessment & Plan Assessment & Plan (1) Paroxysmal atrial fibrillation: Comment: Dr. Kingston pacemaker July 2018 Code(s): I48.0 - Paroxysmal atrial fibrillation Category: Medical Plan: Paroxysmal atrial fibrillation which has remained suppressed. She has no clinical symptoms currently. Continue metoprolol therapy. Continue full oral anticoagulation, currently on Eliquis 5 mg b.i.d. which she is liking. No side effects. Continue to monitor renal function every 6 months. Continue rhythm control approach. No indication for antiarrhythmic drug therapy at this point time. Continue monitor pacer telemetry. (2) Cardiac pacemaker in situ: Code(s): Z95.0 - Presence of cardiac pacemaker Category: Medical Plan: Cardiac pacemaker in-situ for sick sinus syndrome. Pacemaker is working well. Reprogrammed for adequate functioning. Will follow remotely every 3 months. Follow up in clinic every 6 months. Advised to maintain activity level as tolerated. Will follow up in the clinic in 6 time, sooner p.r.n.. Thank you for allowing me to partake in his care Coding Level of Care Code Est Pt Level 4 (36349) Complex EM visit Add On G2211 Diagnoses Paroxysmal atrial fibrillation I48.0 Cardiac pacemaker in situ Z95.0 CPT Codes Cardiac Device Check - Cardiac Device 2: [id number] Cardiac Device Check, pacemaker dual lead ([id number]) EKG - CPT: 20689-[id number], Complete ([id number])
== END 2024-03-25 11:24 | disposition home or self-care (01) ==
PROVIDERS: PCP Internal Medicine; Visit Provider Internal Medicine Cardiovascular Disease
DX: I48.0 Paroxysmal atrial fibrillation (principal); Z95.0 Presence of cardiac pacemaker
CPT/HCPCS: 93010; 93280; 99214; G2211

== ENCOUNTER → 2024-03-25 10:56 | Outpatient (BNVA) | payer MEDICARE, SELFPAY | PROVIDERS: PCP Internal Medicine; Visit Provider Internal Medicine Cardiovascular Disease | DX: I48.0 Paroxysmal atrial fibrillation (principal); Z45.018 Encounter for adjustment and management of other part of cardiac pacemaker; Z87.891 Personal history of nicotine dependence | CPT/HCPCS: 93005; 93280; 99212 ==

== ENCOUNTER → 2024-04-30 23:59 | Outpatient (BNV) | payer MEDICARE, SELFPAY ==
--- NOTE | 2024-05-06 15:09 | A.OFFVIS_ITS ---
Intake Visit Reasons: Remote device check- [facility] Allergies Seasonal Allergies Allergy (Unknown, Verified 03/11/24 10:18) Unknown tizanidine Allergy (Unknown, Verified 03/11/24 10:18) LETHARGY garlic Adverse Reaction (Mild, Verified 03/11/24 10:18) SICK [facility] Medical History Allergic rhinosinusitis Cough Cardiac pacemaker in situ Cervical spondylosis Tubular adenoma of colon Tarlov cyst Osteoarthritis, knee Carpal tunnel syndrome Sick sinus syndrome Paroxysmal atrial fibrillation Hypercholesterolemia Urge incontinence Osteopenia Surgical History History of colonoscopy History of permanent cardiac pacemaker placement History of knee replacement, total History of carpal tunnel release History of biopsy of bladder History of cataract surgery Family History Father MVA (motor vehicle accident) Mother Acute CVA (cerebrovascular accident) Maternal Grandmother Stomach cancer Paternal Grandmother Breast cancer Paternal Aunt Breast cancer Social History Housing: House Alcohol intake: never Patient Tobacco Use Status: Former Tobacco user Tobacco use type: Cigarette Years Smoked: stopped 1977 e-Cigarette/Vaping Use: Never Used Second Hand Smoke Exposure: No service: No Current occupational status: retired Cognitive needs: No Hearing needs: No Vision needs: Yes (reading glasses) Office Procedures Cardiac Device Check Cardiac Device Check Details: Remote pacemaker report generated 04/30/2023. Pacemaker function is adequate [id number] Cardiac Device Interrogation, pacemaker Procedure code (CPT) selection complete Assessment & Plan Assessment & Plan (1) Cardiac pacemaker in situ: Code(s): Z95.0 - Presence of cardiac pacemaker Category: Medical Plan: See above Coding Level of Care Code Procedure Only Diagnoses Cardiac pacemaker in situ Z95.0 CPT Codes Cardiac Device Check - Cardiac Device 12: [id number] Cardiac Device Interrogation, pacemaker ([id number])
== END ==
PROVIDERS: PCP Internal Medicine; Visit Provider Internal Medicine Cardiovascular Disease
DX: Z45.018 Encounter for adjustment and management of other part of cardiac pacemaker (principal)
CPT/HCPCS: 93294

== ENCOUNTER → 2024-07-30 23:59 | Outpatient (BNV) | payer MEDICARE, SELFPAY ==
--- NOTE | 2024-08-04 14:16 | A.OFFVIS_ITS ---
Intake Visit Reasons: Remote device check- [facility] Allergies Seasonal Allergies Allergy (Unknown, Verified 03/11/24 10:18) Unknown tizanidine Allergy (Unknown, Verified 03/11/24 10:18) LETHARGY garlic Adverse Reaction (Mild, Verified 03/11/24 10:18) SICK [facility] Medical History Allergic rhinosinusitis Cough Cardiac pacemaker in situ Cervical spondylosis Tubular adenoma of colon Tarlov cyst Osteoarthritis, knee Carpal tunnel syndrome Sick sinus syndrome Paroxysmal atrial fibrillation Hypercholesterolemia Urge incontinence Osteopenia Surgical History History of colonoscopy History of permanent cardiac pacemaker placement History of knee replacement, total History of carpal tunnel release History of biopsy of bladder History of cataract surgery Family History Father MVA (motor vehicle accident) Mother Acute CVA (cerebrovascular accident) Maternal Grandmother Stomach cancer Paternal Grandmother Breast cancer Paternal Aunt Breast cancer Social History Housing: House Alcohol intake: never Patient Tobacco Use Status: Former Tobacco user Tobacco use type: Cigarette Years Smoked: stopped 1977 e-Cigarette/Vaping Use: Never Used Second Hand Smoke Exposure: No service: No Current occupational status: retired Cognitive needs: No Hearing needs: No Vision needs: Yes (reading glasses) Office Procedures Cardiac Device Check Cardiac Device Check Details: Remote pacemaker report generated 07/30/2024. Pacemaker function is adequate [id number] Cardiac Device Interrogation, pacemaker Procedure code (CPT) selection complete Assessment & Plan Assessment & Plan (1) Cardiac pacemaker in situ: Code(s): Z95.0 - Presence of cardiac pacemaker Category: Medical Plan: See above Coding Level of Care Code Procedure Only Diagnoses Cardiac pacemaker in situ Z95.0 CPT Codes Cardiac Device Check - Cardiac Device 12: [id number] Cardiac Device Interrogation, pacemaker ([id number])
== END ==
PROVIDERS: PCP Internal Medicine; Visit Provider Internal Medicine Cardiovascular Disease
DX: Z45.018 Encounter for adjustment and management of other part of cardiac pacemaker (principal)
CPT/HCPCS: 93294

== ENCOUNTER 2024-09-01 10:06 | Outpatient (REF) | payer MEDICARE, SELFPAY ==
[2024-09-01 13:09] LABS: MANUAL DIFF FLAG NO
[2024-09-01 13:34] LABS: Estimated Average Glucose 128 mg/dL; Hemoglobin A1C 150.4944 umol/L; Hemoglobin A1c % 6.1 % (<6.0); Total Hemoglobin (HGBA1C) 3520.9558 umol/L
[2024-09-01 13:40] LABS: Alanine Aminotransferase 26 U/L (0-31); Alkaline Phosphatase 98 U/L (39-117); Anion Gap 9 (12-20); Aspartate Amino Transferase 26 U/L (5-31); Bilirubin Total 0.6 mg/dL (0.0-1.0); Blood Urea Nitrogen 21 mg/dL (9-16); Calcium 8.8 mg/dL (8.4-10.2); Carbon Dioxide 29 mmol/L (22-29); Chloride 105 mmol/L (96-108); Estimated Glomerular Filt Rate > 60; Glucose Random 107 mg/dL (60-115); Potassium 4.1 mmol/L (3.3-5.1); Sodium 139 mmol/L (135-145); Total Protein 6.7 g/dL (6.5-8.0)
[2024-09-01 14:02] LABS: Basophils Percent Auto 0.6 % (0-2); Eosinophils Absolute Auto 0.3 X10*3/uL (0.0-0.4); Eosinophils Percent Auto 4.2 % (0-4); Hematocrit 40.7 % (37.0-47.0); Hemoglobin 13.6 g/dl (12.0-16.0); Imm Gran Abs Auto 0.02 X10*3/uL (0.00-0.03); Imm Gran Pct Auto 0.3 % (0.0-0.4); Lymphocytes Absolute Auto 2.3 X10*3/uL (1.2-4.9); Lymphocytes Percent Auto 35.5 % (20-40); Mean Corpuscular HGB Conc 33.4 g/dl (31.0-35.0); Mean Corpuscular Hemoglobin 30.9 pg (27.0-33.0); Mean Corpuscular Volume 92.5 fL (80.0-98.0); Mean Platelet Volume 9.2 fL (9.4-12.3); Monocytes Absolute Auto 0.5 X10*3/uL (0.1-1.2); Neutrophils Absolute Auto 3.4 x10*3/uL (2.0-8.3); Neutrophils Percent Auto 51.4 % (45-73); Platelet Count 273 X10*3/uL (160-400); Red Cell Distribution Width 13.7 % (11.0-16.0); White Blood Count 6.6 X10*3/uL (4.8-10.8)
== END 2024-09-01 10:07 | disposition home or self-care (01) ==
LOC: HO.10HDL 10:06
PROVIDERS: Visit Provider Internal Medicine
DX: K21.9 Gastro-esophageal reflux disease without esophagitis (principal); Z13.1 Encounter for screening for diabetes mellitus
CPT/HCPCS: 36415; 80053; 83036; 85025

== ENCOUNTER 2024-09-08 10:30 | Outpatient (AMB) | payer MEDICARE, SELFPAY ==
[2024-09-08 10:37] VITALS: BP 110/80; PULSE 62; TEMP 36.2; O2SAT 97; BMI 27.6
--- NOTE | 2024-09-08 10:37 | MHC.PC.OV ---
Vital Signs 09/08/24 10:37 Height 5 ft 8 in Weight 181 lb 4 oz BMI 27.6 BP 110/80 Blood Pressure Location Lt brachial Position Sitting Pulse 62 Pulse Source Pulse Oximeter Temp 97.1 F Temp Source Temporal Artery Scan Pulse Oximetry (%) 97 Oxygen Delivery Method Room Air Intake Visit Reasons: A fib Machine Bender Required: No Accompanied by: Self / Same As Patient Allergies Seasonal Allergies Allergy (Unknown, Verified 09/08/24 10:55) Unknown tizanidine Allergy (Unknown, Verified 09/08/24 10:55) LETHARGY garlic Adverse Reaction (Mild, Verified 09/08/24 10:55) SICK Tobacco use date assessed: 09/08/24 Fall risk assessment: No Falls in past year Last assessed Fall Risk: 09/08/24 Dental Screening Dental Screen Date: 09/08/24 Did you have a dental visit in the last 12 months?: Yes Did you have a dental problem in the last 6 months where you did not have access to dental care?: No Was dental information given to patient?: Patient has dentist [facility] Medical History Allergic rhinosinusitis Cough Cardiac pacemaker in situ Cervical spondylosis Tubular adenoma of colon Tarlov cyst Osteoarthritis, knee Carpal tunnel syndrome Sick sinus syndrome Paroxysmal atrial fibrillation Hypercholesterolemia Urge incontinence Osteopenia Surgical History History of colonoscopy History of permanent cardiac pacemaker placement History of knee replacement, total History of carpal tunnel release History of biopsy of bladder History of cataract surgery Family History Father MVA (motor vehicle accident) Mother Acute CVA (cerebrovascular accident) Maternal Grandmother Stomach cancer Paternal Grandmother Breast cancer Paternal Aunt Breast cancer Social History Housing: House Alcohol intake: never Patient Tobacco Use Status: Former Tobacco user Tobacco use type: Cigarette Years Smoked: stopped 1977 e-Cigarette/Vaping Use: Never Used Second Hand Smoke Exposure: No service: No Current occupational status: retired Cognitive needs: No Hearing needs: No Vision needs: Yes (reading glasses) Questionnaire PHQ-9 Over the last 2 weeks, how often have you been bothered by any of the following problems? 1. Little interest or pleasure in doing things: not at all 2. Feeling down, depressed, or hopeless: not at all 3. Trouble falling or staying asleep, or sleeping too much: not at all 4. Feeling tired or having little energy: not at all 5. Poor appetite or overeating: not at all 6. Feeling bad about yourself - or that you are a failure or have let yourself or your family down: not at all 7. Trouble concentrating on things, such as reading the newspaper or watching television: not at all 8. Moving or speaking so slowly that other people could have noticed. Or the opposite - being so fidgety or restless that you have been moving around a lot more than usual: not at all 9. Thoughts that you would be better off or of hurting yourself in some way: not at all Total score: 0 Depression Screening Interpretation: Negative Depression Screening Done: Yes 93184 - PHQ-9 Billing: Yes Source: Developed by Drs. Al May, Meghan Hackett, Robby Rios and colleagues, with an educational jose from [employer]. Thrive Questionnaire Date Thrive assessed: 09/08/24 I am a: Patient What is your living situation today?: I have a steady place to live Within the past 12 months, did the food you bought not last and you didn't have the money to get more?: Never true Within the past 12 months, did you worry whether your food would run out before you got money to buy more?: Never true Do you have trouble paying for medicines?: No Do you have trouble getting transportation to medical appointments?: No Do you have trouble paying your heating and electricity bill?: No Do you have trouble taking care of your child, family member or friend?: No Do you have trouble with day-to-day activities such as bathing, preparing meals, shopping, managing finances, etc.?: No Are you currently unemployed and looking for a job?: No Are you interested in more education?: No Please select the resources that you would like help with: None Currently or been in a relationship where the following occur: No concerns reported THRIVE Score: 0 AUDIT C Alcohol Use Questionnaire (AUDIT-C) 1. How often do you have a drink containing alcohol?: Never 2. How many drinks containing alcohol do you have on a typical day when you are drinking?: 1 or 2 3. How often do you have six or more drinks on one occasion?: Never Total Score: 0 RAFAEL-7 AMB Questionnaire RAFAEL-7 Date RAFAEL - 7 assessed: 09/08/24 Feeling nervous, anxious, or on edge: 0 = Not at all Not being able to stop or control worryin = Not at all Worrying too much about different things: 0 = Not at all Trouble relaxin = Not at all Being so restless that it is hard to sit still: 0 = Not at all Becoming easily annoyed or irritable: 0 = Not at all Feeling afraid as if something awful might happen: 0 = Not at all Total RAFAEL-7 score (0-4 normal; 5-9 mild; 10-14 moderate; 15-21 severe): 0 Source: Developed by Drs. Al May, Meghan Hackett, Robby Rios and colleagues, with an educational jose from [employer]. RAFAEL-7 Assessment Billing RAFAEL-7 Assessment Tool: RAFAEL-7 Assessment 13532 Physical exam (Primary Care) Vital Signs: Last Vital Signs Temp 97.1 F 09/08/24 10:37 Pulse 62 09/08/24 10:37 BP 110/80 09/08/24 10:37 Pulse Ox 97 09/08/24 10:37 Oxygen Delivery Method Room Air 09/08/24 10:37 BMI result Body Mass Index 27.6 Tobacco/Smoking Status: Tobacco use Status Tobacco use date assessed 09/08/24 09/08/24 10:56 Patient Tobacco Use Status Former Tobacco user 09/08/24 10:38 Tobacco use type Cigarette 09/08/24 10:38 e-Cigarette/Vaping Use Never Used 09/08/24 10:38 PHQ-9: PHQ-9 Score PHQ-9: Total score 0 09/08/24 11:33 Depression Screening Interpretation: Negative Thrive Assessment: Date of Thrive Assessment Date Thrive assessed 09/08/24 09/08/24 10:56 Currently or been in a relationship where the following occur: No concerns reported Const General: alert; No acute distress Eyes Conjunctivae: conjunctivae normal Resp Auscultation: clear to auscultation bilaterally Cardio Rate: regular rate Rhythm: regular rhythm GI Inspection: Yes normal to inspection Extrem General: Yes normal to inspection and No edema Coding Level of Care Code Est Pt Level 4 (90572) Complex EM visit Add On G2211 Diagnoses Sick sinus syndrome I49.5 Cardiac pacemaker in situ Z95.0 Paroxysmal atrial fibrillation I48.0 Hypercholesterolemia E78.00 Gastroesophageal reflux disease without esophagitis K21.9 Esophagitis presence: without esophagitis Impaired glucose tolerance R73.02 Additional Codes RAFAEL-7 Assessment Billing - RAFAEL-7 Assessment Tool: RAFAEL-7 Assessment 48637 ([id number]) PHQ-9 - 76689 - PHQ-9 Billing: Yes ([id number]) Assessment & Plan Assessment & Plan (1) Sick sinus syndrome: Code(s): I49.5 - Sick sinus syndrome Category: Medical Plan: Patient continues to follow-up with cardiology having device check due to the pacemaker (2) Cardiac pacemaker in situ: Code(s): Z95.0 - Presence of cardiac pacemaker Category: Medical Plan: Patient follows up with Cardiology (3) Paroxysmal atrial fibrillation: Comment: Dr. Kingston pacemaker July 2018 Code(s): I48.0 - Paroxysmal atrial fibrillation Category: Medical Plan: Continuing with anticoagulation on Eliquis 5 mg twice a day August 2024 last blood work (4) Hypercholesterolemia: Code(s): E78.00 - Pure hypercholesterolemia, unspecified Category: Medical Plan: Avoid fried foods, chicken skin, eggs, butter margarine, pastries and meat. Be it pork or beef they have a lot of cholesterol LDL goal of less than 130 and triglyceride of less than 150 on atorvastatin 20 mg once a day (5) GERD (gastroesophageal reflux disease): Code(s): K21.9 - Gastro-esophageal reflux disease without esophagitis Category: Medical Qualifiers: Esophagitis presence: without esophagitis Qualified Code(s): K21.9 - Gastro-esophageal reflux disease without esophagitis Plan: Avoid the foods that causes that usually spicy foods, tomato products, juices, coffee, soda and foods that your sensitive to. After eating do not lie down, allow 3-4 hours before in lie down. And keep the head of bed above 30 degrees to avoid the acid from going up. (6) Impaired glucose tolerance: Code(s): R73.02 - Impaired glucose tolerance (oral) Category: Medical Plan: Decrease the amount of carbohydrate intake, pasta, bread, rice and potatoes are all sugar and that is aside from all the sweet stuff, remember that fruits are good but they are Sweet also. Plan History of Present Illness The patient is a 79-year-old female presenting for a follow-up focused on her chronic conditions including sick sinus syndrome with a pacemaker, atrial fibrillation, hypercholesterolemia, impaired glucose tolerance, and gastroesophageal reflux disease (GERD). She has been continuously monitored by cardiology for her pacemaker and anticoagulation management, with a recent blood workup in August showing normal counts and renal function, yet indicating mild hyperglycemia and a hemoglobin A1c of 6.1%. She acknowledges an upward trend in her glucose levels and body weight, prompting dietary and physical activity adjustments. The patient also reports recurrent eczema, particularly on exposed skin areas, which appears to be exacerbated by dry environmental conditions and contact with certain materials. She has experienced improvement using topical treatments like hydrocortisone cream and increased skin hydration practices. Health Maintenance - Last colonoscopy completion not specified. - Last mammogram conducted in December 2023. - Bone density assessment performed in March 2023. - LDL cholesterol level from February 2024:111 mg/dL with a management goal of less than 130 mg/dL and triglyceride level target of less than 150 mg/dL while on atorvastatin 20 mg daily. - Patient is compliant with cardiology follow-up and cardiology device checks. - Ongoing vaccination compliance with pneumococcal (three doses), shingles, tetanus, RSV, and recent COVID vaccination. Social History - Incorporates exercise into daily routine, plans to increase activity. - Acknowledges a dietary sweet tooth, impacting glucose control. - Reported weight gain, currently working to manage through diet modification and increased physical activity. - Utilizes topical creams for eczema management. Review of Systems - Cardiovascular: Denies symptoms beyond those associated with diagnosed atrial fibrillation and cardiology intervention monitoring. - Gastrointestinal: Reports GERD without new or worsening symptoms. - Endocrine: Reports mild hyperglycemia, addressing through dietary changes. - Dermatological: Reports intermittent eczema primarily on exposed skin; denies involvement of chest or abdomen. - General: Denies anemia, normal blood count confirmed. Physical Exam Results - Labs: Normal blood count, electrolytes, and renal function; hemoglobin A1c: 6.1% in August. - Diagnostic Testing: LDL level of 111 mg/dL as of last February. Plan The management strategy for the patient's chronic conditions includes reinforcing the need for dietary management and increased physical activity to address impaired glucose tolerance and potential weight gain. Regular monitoring through blood tests is planned for six months later. The regimen of atorvastatin will continue managing her cholesterol levels. Barrel Turner oversight for her pacemaker and anticoagulation will continue as per current protocols. Eczema symptoms will be managed with topical treatments and lifestyle adjustments, with potential dermatology consultation if improvement is slow or conditions are exacerbated. Vaccination and screening are up-to-date, and the patient is encouraged to maintain these and continue regular consults. Patient was informed and verbally consented to the use of an ambient scribe for clinic note documentation during this visit. Discussion Notes During the visit, I discussed with the patient the importance of managing her glucose levels through dietary and lifestyle changes, emphasizing reduction in carbohydrates and sugars and increasing physical activity as a measure to control weight and prevent diabetes progression. We reviewed her medications, ensuring all are current and correctly dosed, specifically addressing atorvastatin therapy for hypercholesterolemia and anticoagulation with Eliquis. I explained the importance of ongoing monitoring of her pacemaker and cardiovascular health through regular cardiology visits. For her dermatological concerns, I advised the use of [id number]-[id number]-[id number] remedies and a potential referral to dermatology if the condition does not improve. We discussed goals, expectations, and necessary follow-ups, including future labs. The patient was advised about diet, exercise, and skin care during dry weather as part of anticipatory guidance. All discussions included consent from the patient regarding the planned management and follow-up strategy. Patient Instructions - Cut down on sugar and carbohydrates in your diet. - Increase your physical activity daily; try walking regularly. - Use bhdm-kzl-gbknwyi hydrocortisone cream for eczema and keep your skin moisturized. - Continue taking atorvastatin daily as prescribed. - Attend all scheduled cardiology appointments for pacemaker checks and follow-ups. - Have repeat blood work done in about six months. - Contact dermatology if eczema does not improve. - Stay current with your vaccinations and health screenings. - Return in six months or sooner if any concerns arise. Orders: Orders Hemoglobin A1c 6 Months R73.02 - Impaired glucose tolerance (oral) Lipid Panel 6 Months E78.00 - Pure hypercholesterolemia, unspecified, R73.02 - Impaired glucose tolerance (oral) Comprehensive Met. Panel 6 Months R73.02 - Impaired glucose tolerance (oral) Complete Blood Count Auto Diff 6 Months R73.02 - Impaired glucose tolerance (oral) Free T4 (Free Thyroxine) 6 Months R73.02 - Impaired glucose tolerance (oral) Thyroid Stimulating Hormone 6 Months R73.02 - Impaired glucose tolerance (oral) Vitamin B12 and Folate 6 Months R73.02 - Impaired glucose tolerance (oral) Vitamin D 25-OH Total 6 Months R73.02 - Impaired glucose tolerance (oral) Referrals Dermatology Referral L85.3 - Xerosis cutis
== END 2024-09-08 11:43 | disposition home or self-care (01) ==
LOC: HO.HMCH 10:31
PROVIDERS: PCP Internal Medicine; Visit Provider Internal Medicine
DX: I49.5 Sick sinus syndrome (principal); Z95.0 Presence of cardiac pacemaker; I48.0 Paroxysmal atrial fibrillation; E78.00 Pure hypercholesterolemia, unspecified; K21.9 Gastro-esophageal reflux disease without esophagitis; R73.02 Impaired glucose tolerance (oral)

== ENCOUNTER → 2024-09-08 10:30 | Outpatient (BNVA) | payer MEDICARE, SELFPAY | PROVIDERS: PCP Internal Medicine; Visit Provider Internal Medicine | DX: I48.0 Paroxysmal atrial fibrillation (principal); I49.5 Sick sinus syndrome; E78.00 Pure hypercholesterolemia, unspecified; K21.9 Gastro-esophageal reflux disease without esophagitis; R73.02 Impaired glucose tolerance (oral); Z95.0 Presence of cardiac pacemaker; Z87.891 Personal history of nicotine dependence | CPT/HCPCS: 96127; 99212 ==

== ENCOUNTER 2024-09-30 10:44 | Outpatient (AMB) | payer MEDICARE, SELFPAY ==
--- NOTE | 2024-09-30 11:01 | MHC.OFFVIS ---
Vital Signs 09/30/24 11:02 Height 5 ft 8 in Weight 182 lb 15.739 oz BMI 27.8 BP 120/78 Blood Pressure Location Lt brachial Position Sitting Pulse 61 Intake Visit Reasons: 6m w/pacer ck Intake Note: 6 month follow-up with [facility] check Design Transferrer Required: No Allergies Seasonal Allergies Allergy (Unknown, Verified 09/08/24 10:55) Unknown tizanidine Allergy (Unknown, Verified 09/08/24 10:55) LETHARGY garlic Adverse Reaction (Mild, Verified 09/08/24 10:55) SICK Medication List - Last Reconciled 09/30/24 by Zackary Kingston MD apixaban (Eliquis) 5 mg PO BID atorvastatin 20 mg PO DAILY cephalexin 500 mg PO 4 capsule 1 hour prior to procedure; cholecalciferol (vitamin D3) 25 mcg PO DAILY estradiol 0.01%(0.1mg/gram) 1 g vaginal 3XW famotidine (Pepcid) 20 mg PO BEDTIME 90 days metoprolol succinate ER 75 mg (1.5 x 50 mg) PO DAILY 90 days ujxfposg-ssh-qeap-FA-vit K-lut 8 mg iron-400 mcg-50 mcg (Centrum Silver Women) 1 tab PO DAILY omega 3-ahs-vgu-fish oil 60-90-500 mg (Fish Oil) 1 cap PO DAILY solifenacin 5 mg PO BID HPI Comments Details: Erika comes for follow-up. She denies any cardiac symptoms. Remains pretty active for her age. Lives alone and maintains her own household. She denies any symptoms of irregular heartbeat, palpitation, prolonged fast heart rate. Denies any lightheadedness, syncope. No bleeding issues or neurologic events. Denies any exertional chest pain or shortness of breath. No orthopnea, PND, leg edema. [facility] Medical History Allergic rhinosinusitis Cough Cardiac pacemaker in situ Cervical spondylosis Tubular adenoma of colon Tarlov cyst Osteoarthritis, knee Carpal tunnel syndrome Sick sinus syndrome Paroxysmal atrial fibrillation Hypercholesterolemia Urge incontinence Osteopenia Surgical History History of colonoscopy History of permanent cardiac pacemaker placement History of knee replacement, total History of carpal tunnel release History of biopsy of bladder History of cataract surgery Family History Father MVA (motor vehicle accident) Mother Acute CVA (cerebrovascular accident) Maternal Grandmother Stomach cancer Paternal Grandmother Breast cancer Paternal Aunt Breast cancer Social History Housing: House Alcohol intake: never Patient Tobacco Use Status: Former Tobacco user Tobacco use type: Cigarette Years Smoked: stopped 1977 e-Cigarette/Vaping Use: Never Used Second Hand Smoke Exposure: No service: No Current occupational status: retired Cognitive needs: No Hearing needs: No Vision needs: Yes (reading glasses) Review of Systems Const Denies chills, Denies fatigue, Denies fever(s), Denies frequent falls, Denies weakness, Denies weight gain and Denies weight loss ENT Denies dizziness Card Denies chest pain, Denies leg edema, Denies lightheadedness, Denies palpitations, Denies dyspnea, Denies dyspnea on exertion, Denies orthopnea and Denies other (loss of consciousness) Resp Denies cough, Denies dyspnea and Denies dyspnea on exertion GI Denies hematochezia and Denies change in stool character Musc Denies abnormal gait, Denies muscle weakness, Denies numbness, Denies radiating pain into limb and Denies tingling Neuro Denies abnormal gait, Denies dizziness, Denies frequent falls, Denies numbness, Denies tingling and Denies weakness Endo Denies fatigue and Denies palpitations Physical Exam Vital Signs: Last Vital Signs Pulse 61 09/30/24 11:02 BP 120/78 09/30/24 11:02 BMI result Body Mass Index 27.8 Const General: cooperative, comfortable, no acute distress, alert and awake Nutritional Appearance: average body habitus Orientation/consciousness: patient oriented x3 Limitations: no limitations Neck Neck: Yes trachea midline, Yes supple and Yes no JVD Resp Effort & Inspection: normal respiratory effort Auscultation: clear to auscultation bilaterally Cardio Jugular venous distension: no JVD Palpation: normal PMI Rate: regular rate Rhythm: regular rhythm Heart sounds: S1 normal heart sound present and S2 normal heart sound present Skin General skin exam: no rashes or lesions noted Neuro General: patient oriented x3 and no focal motor deficits Extrem General: Yes no clubbing, cyanosis or edema Psych Appearance: grossly normal Affect: Anxious affect present Office Procedures Cardiac Device Check Cardiac Device Check Details: Dual-chamber [place] pacemaker in place. Programmed in DDDR at 60 beats per minute. Atrial pacing 86% of the time. Minimal ventricular pacing noted. No episodes of atrial fibrillation noted. Atrial pacing thresholds are excellent and in auto capture mode. Ventricular pacing thresholds elevated but stable. Atrial ventricular sensing is excellent. Pacing lead impedance is stable. Battery life is at about 3 and half years [id number] Cardiac Device Check, pacemaker dual lead Procedure code (CPT) selection complete Assessment & Plan Assessment & Plan (1) Cardiac pacemaker in situ: Code(s): Z95.0 - Presence of cardiac pacemaker Category: Medical Plan: Cardiac pacemaker in-situ for sick sinus syndrome. Patient is doing well from that perspective. Will continue monitor remotely every 3 months. Follow up in the clinic in 6 months time. (2) Paroxysmal atrial fibrillation: Comment: Dr. Kingston pacemaker July 2018 Code(s): I48.0 - Paroxysmal atrial fibrillation Category: Medical Plan: Paroxysmal atrial fibrillation doing well with rhythm control approach. Currently not having any episodes of atrial fibrillation. Will pursue rhythm control approach. Continue metoprolol therapy. Avoidance of stimulants was discussed. Continue full oral anticoagulation, currently on Eliquis 5 mg b.i.d.. Semi annual renal function test should be pursued. (3) NSVT (nonsustained ventricular tachycardia): Code(s): I47.2 - Ventricular tachycardia Category: Medical Plan: Prior history of nonsustained ventricular tachycardia. Has not had any clinical recurrence on pacer telemetry. Will continue to monitor. Will follow up in the clinic in 6 months time, sooner p.r.n.. Thank you for allowing me to partake in her care Coding Level of Care Code Est Pt Level 4 (02610) Complex EM visit Add On G2211 Diagnoses Cardiac pacemaker in situ Z95.0 Paroxysmal atrial fibrillation I48.0 NSVT (nonsustained ventricular tachycardia) I47.2 CPT Codes Cardiac Device Check - Cardiac Device 2: [id number] Cardiac Device Check, pacemaker dual lead ([id number])
[2024-09-30 11:02] VITALS: BP 120/78; PULSE 61; BMI 27.8
--- OUTSIDE RECORDS SUMMARY | 2024-09-30 12:23 | XMS_ITS | Patient Health Record ---
Author Organization [facility] [place] Address [address] [facility] [place] [address] Care Team Providers Care Brake Shoe Rebuilder Name Role Phone Fiorella SINGH, Mariangel Palacios Primary Care Provider Un available Joseph Kevin Unavailable [phone] Allergies Allergen (clinical drug ingredient) Drug/Non Drug Allergy documented on EMR Reaction Allergy Type Onset Date Status seasonal allergies Unknown Drug Allergy Active Latex red spot Drug Allergy Active Reason For Referral No Information Medications Medication SIG (Take, Route, Frequency, Duration) Notes Start Date End Date Status Fish Oil Maximum Strength 1200 MG 1 capsule Orally Once a day 12/18/2014 Active oxyBUTYnin Chloride ER Active Warfarin Sodium 7.5 MG 1 tablet Orally O nce a day 12/18/2014 Active Angelique Allergy 180 MG 1 tablet Orally O nce a day 12/18/2014 Active Simvastatin 10 MG 1 tablet in the even ing Orally Once a day 12/18/2014 Active Warfarin Sodium 5 MG 1 tablet Orally Onc e a day 12/18/2014 Active Keflex 500 Active Vitamin D3 Active Mult-Vitamin/Fluoride Active Social History Tobacco Use: Social History Observation Description Date Details (start date - stop date) Former Smoker NA - NA Tobacco Use/Smoking Question Answer Notes Are you a: former smoker Additional Findings: Tobacco Non-User Ex -moderate cigarette smoker (10-19/day),Non-smoker for personal reasons Alcohol Screen Question Answer Notes Did you have a drink containing alcohol in the p ast year? No Points 0 Interpretation Negative Problems Problem Type SNOMED Code ICD Code Onset Dates Problem Status W/U Status Risk Notes Problem Achilles bursitis (300729085) Achilles Tendonitis Bursitis (726.71) Active confirmed Problem Pain in limb (13880764) Pain in Limb (729.5) Active confirmed Problem Calcaneal spur (22508003) Calcaneal spur (726.73) Active confirmed Plan Of Treatment Pending Test Test Name Order Date X ray : Foot, left 2V 12/24/2014 X ray : Foot, right 2V 12/24/2014 Insurance Providers Payer Name Payer Address Payer Phone Subscriber Number Group Number Insured Name Patient Relationship to Insured Coverage Start Date Coverage End Date [facility] [address] [facility] [place] [address] [id number] Erika Melchor Self - patient is the insured Medical (General) History Medical History History ICD Code Arthritis Back,Hip,and Knee pain Cholesterol Cataracts Sciatica Sinus conditions Measles Mumps Chicken pox Joint implants/screws Transfusions Surgical History Surgery Date(Month/Year) carpal tunnel surgery 2009, 2010 knee surgery, left 2014 knee surgery, right 2012 cataract surgery 2006
== END 2024-09-30 11:24 | disposition home or self-care (01) ==
LOC: HO.HCS 10:44
PROVIDERS: PCP Internal Medicine; Visit Provider Internal Medicine Cardiovascular Disease
DX: I48.0 Paroxysmal atrial fibrillation (principal); Z95.0 Presence of cardiac pacemaker; I47.20 Ventricular tachycardia, unspecified
CPT/HCPCS: 93280; 99214; G2211

== ENCOUNTER → 2024-09-30 10:44 | Outpatient (BNVA) | payer MEDICARE, SELFPAY | PROVIDERS: PCP Internal Medicine; Visit Provider Internal Medicine Cardiovascular Disease | DX: I48.0 Paroxysmal atrial fibrillation (principal); I47.20 Ventricular tachycardia, unspecified; Z45.018 Encounter for adjustment and management of other part of cardiac pacemaker; Z87.891 Personal history of nicotine dependence | CPT/HCPCS: 93280; 99212 ==

== ENCOUNTER → 2024-10-29 23:59 | Outpatient (BNV) | payer MEDICARE, SELFPAY ==
--- NOTE | 2024-11-03 13:33 | MHC.OFFVIS ---
Intake Visit Reasons: Remote device check- [facility] Allergies Seasonal Allergies Allergy (Unknown, Verified 09/08/24 10:55) Unknown tizanidine Allergy (Unknown, Verified 09/08/24 10:55) LETHARGY garlic Adverse Reaction (Mild, Verified 09/08/24 10:55) [facility] Medical History Allergic rhinosinusitis Cough Cardiac pacemaker in situ Cervical spondylosis Tubular adenoma of colon Tarlov cyst Osteoarthritis, knee Carpal tunnel syndrome Sick sinus syndrome Paroxysmal atrial fibrillation Hypercholesterolemia Urge incontinence Osteopenia Surgical History History of colonoscopy History of permanent cardiac pacemaker placement History of knee replacement, total History of carpal tunnel release History of biopsy of bladder History of cataract surgery Family History Father MVA (motor vehicle accident) Mother Acute CVA (cerebrovascular accident) Maternal Grandmother Stomach cancer Paternal Grandmother Breast cancer Paternal Aunt Breast cancer Social History Housing: House Alcohol intake: never Patient Tobacco Use Status: Former Tobacco user Tobacco use type: Cigarette Years Smoked: stopped 1977 e-Cigarette/Vaping Use: Never Used Second Hand Smoke Exposure: No service: No Current occupational status: retired Cognitive needs: No Hearing needs: No Vision needs: Yes (reading glasses) Office Procedures Cardiac Device Check Cardiac Device Check Details: Remote pacemaker report generated 10/29/2024. Pacemaker function is adequate and no episodes of atrial fibrillation noted [id number] Cardiac Device Interrogation, pacemaker Procedure code (CPT) selection complete Assessment & Plan Assessment & Plan (1) Cardiac pacemaker in situ: Code(s): Z95.0 - Presence of cardiac pacemaker Category: Medical Plan: See above Coding Level of Care Code Procedure Only Diagnoses Cardiac pacemaker in situ Z95.0 CPT Codes Cardiac Device Check - Cardiac Device 12: [id number] Cardiac Device Interrogation, pacemaker ([id number])
== END ==
PROVIDERS: PCP Internal Medicine; Visit Provider Internal Medicine Cardiovascular Disease
DX: Z45.018 Encounter for adjustment and management of other part of cardiac pacemaker (principal)
CPT/HCPCS: 93294

== ENCOUNTER 2024-12-18 13:06 | Outpatient (REF) | payer MEDICARE, SELFPAY ==
--- NOTE | ~2024-12-18 | XR_ITS ---
EXAMINATION: XR FOOT, LEFT CLINICAL INFORMATION: OTHER SPRAIN since falling 2 days ago COMPARISON: None available. TECHNIQUE: AP, lateral, and oblique views of the left foot. FINDINGS: Small degenerative cysts present in the subchondral bone of the dorsal medial first metatarsal head. There is a small corticated fragment dorsal to the talar neck. No other abnormalities are evident. XR/XR foot LT min 3V IMPRESSION: Age-indeterminate avulsion fracture involving dorsal talar neck. Correlate for focal tenderness. Nonspecific degenerative cyst versus marginal erosion, such as from gout, involving dorsal medial first metatarsal head. Electronically signed by: Robson Coleman MD 12/18/2024 02:03 PM EDT
--- NOTE | ~2024-12-18 | XR_ITS ---
EXAMINATION: XR ANKLE, left CLINICAL INFORMATION: SRAIN OF OTHER LIGAMENT , fell 2 days ago COMPARISON: None available. TECHNIQUE: AP, lateral, and mortise views lower extremity joint, ankle. FINDINGS: There is lateral soft tissue swelling. There is a small bony fragment lateral to the hindfoot in the subfibular region visible on the AP view. There is a small cortical fragment dorsal to the talar neck. Ankle mortise is congruent. There is no widening of the syndesmosis. Talar dome is intact. There are no calcaneal enthesophytes. XR/XR ankle LT min 3V IMPRESSION: Chopart joint sprain/avulsion fracture: Lateral soft tissue swelling and avulsion fracture with visible fragment lateral to the hindfoot and dorsal to the talar neck. Electronically signed by: Robson Coleman MD 12/18/2024 02:07 PM EDT
--- OUTSIDE RECORDS SUMMARY | 2024-12-18 13:21 | XMS_ITS | Patient Health Record ---
Author Organization [facility] Address [address] [place] [address] Care Team Providers Care Radar Air Traffic Controller Name Role Phone Fiorella SINGH, Mariangel Primary Care Provider Al Christianson [phone] Reason For Referral No Information Medications Medication SIG (Take, Route, Fr equency, Duration) Notes Start Date End Date Status Amoxicillin 500 MG 3 capsules Orally as directed after the colonoscopy for 1 days 11/19/2015 Active Keflex Active Vitamin D-3 Active Fish Oil Active Angelique Active Warfarin Sodium Acti ve oxyBUTYnin Active Atorvastatin Calcium Active Problems Problem Type SNOMED Code ICD Code Onset Dates Problem Status W/U Status Risk Notes Problem 564708476 Encounter for screening for malignant neoplasm of colon (Z12.11) Active confirmed Problem 278132988 History of adenomatous polyp of colon (Z86.010) Active confirmed Problem Encounter for screening for malignant neoplasm of rectum (Z12.12) Active confirmed Problem 01778025 Preprocedural examination (Z01.818) Active confirmed Problem 542691970 Long-term (curre nt) use of anticoagulants (Z79.01) Active confirmed Plan Of Treatment Future Test Test Name Order Date COLONOSCOPY 11/19/2015 Insurance Providers Payer Name Payer Address Payer Phone Subscriber Number Group Number Insured Name Patient Relationship to Insured Coverage Start Date Coverage End Date [facility] [address] [place] [phone] [id number] ODALIS TRUJILLO Self - patient is the insured Medical (General) History Medical History History ICD Code Colonoscopy 2003- small tub ular adenoma removed; neg colonoscopies in 2004 and 09/2010 except for a hyperplastic polyp, sigmoid diverticulosis, and internal hemorrhoids Hyperlipidemia A fib--sees Dr. Kingston Overactive bladder Surgical History Surgery Date(Month/Year) Bilateral knee replacements--right and left 05/2013 Bilateral Carpal tunnel surgery
--- OUTSIDE RECORDS SUMMARY | 2024-12-18 13:21 | XMS_ITS | Patient Health Record ---
Author Organization [facility] [place] Address [address] [place] [address] Care Team Providers Care Venetian Blind Washer Name Role Phone Fiorella SINGH, Mariangel Palacios Primary Care Provider Un available Joseph Kevin Unavailable [phone] Allergies Allergen (clinical drug ingredient) Drug/Non Drug [...] W/U Status Risk Notes Problem Achilles bursitis (567172673) Achilles Tendonitis Bursitis (726.71) Active confirmed Problem Pain in limb (78752331) Pain in Limb (729.5) Active confirmed Problem Calcaneal spur (29153170) Calcaneal spur (726.73) Active confirmed Plan Of Treatment Pending Test Test Name Order Date X ray : Foot, left 2V 12/24/2014 X ray : Foot, right 2V 12/24/2014 Insurance Providers Payer Name Payer Address Payer Phone Subscriber Number Group Number Insured Name Patient Relationship to Insured Coverage Start Date Coverage End Date [facility] [address] [facility] [place] [address] [id number] Erika Melchor Self - patient is the insured Medical (General) History Medical History History ICD Code Arthritis Back,Hip,and Knee pain Cholesterol Cataracts Sciatica Sinus conditions Measles Mumps Chicken pox Joint implants/screws Transfusions Surgical History Surgery Date(Month/Year) carpal tunnel surgery 2009, 2010 knee surgery, left 2014 knee surgery, right 2012 cataract surgery 2006
== END 2024-12-18 13:07 | disposition home or self-care (01) ==
LOC: HO.XRAY 13:06
PROVIDERS: PCP Internal Medicine; Visit Provider Nurse Practitioner Primary Care
DX: S93.492D Sprain of other ligament of left ankle, subsequent encounter (principal); S93.692D Other sprain of left foot, subsequent encounter
CPT/HCPCS: 73610; 73630

== ENCOUNTER → 2024-12-18 13:20 | Outpatient (BNV) | payer MEDICARE, SELFPAY | PROVIDERS: PCP Internal Medicine; Visit Provider Radiology Diagnostic Radiology | DX: S92.152A Displaced avulsion fracture (chip fracture) of left talus, initial encounter for closed fracture (principal); M85.672 Other cyst of bone, left ankle and foot | CPT/HCPCS: 73610; 73630 ==

== ENCOUNTER 2025-01-09 11:54 | Outpatient (REF) | payer MEDICARE, SELFPAY ==
--- NOTE | ~2025-01-09 | MM_ITS ---
EXAMINATION: MM SCREENING DIGITAL BREAST TOMOSYNTHESIS, BILATERAL CLINICAL INFORMATION: Screening. Asymptomatic. COMPARISON: Mammography: Comparison is made with available priors TECHNIQUE: Digital breast mammography with tomosynthesis is performed in both the craniocaudal and mediolateral oblique views along with computer-aided detection (CAD). FINDINGS: There are scattered areas of fibroglandular density (ACR BI-RADS breast composition Category b). Pacemaker overlies and obscures the superior posterior left breast on MLO view. There are no significant masses, abnormal calcifications, or other abnormalities. MM/MM tomosynthesis screening BI IMPRESSION: No mammographic evidence of malignancy. ASSESSMENT: BI-RADS BI-RADS 2 - Benign Findings RECOMMENDATION: Routine annual mammography screening. 1 year F/U This examination should not preclude the clinical evaluation of a suspicious palpable abnormality. This patient's information was entered into a reminder system with a target due date for their next mammogram. Electronically signed by: Fanta Li DO 01/13/2025 12:03 PM EDT
--- OUTSIDE RECORDS SUMMARY | 2025-01-09 14:23 | XMS_ITS | Patient Health Record ---
Author Organization [facility] Address [address] [place] [address] Care Team Providers Care Magnet Maker Name Role Phone Fiorella SINGH, Mariangel Primary Care Provider lA Christianson [phone] Reason For Referral No Information Medications Medication [...] Problem Status W/U Status Risk Notes Problem 402386185 Encounter for screening for malignant neoplasm of colon (Z12.11) Active confirmed Problem 645029485 History of adenomatous polyp of colon (Z86.010) Active confirmed Problem Screening for malignant neoplasm of rectum (430790928) Encounter for screening for malignant neoplasm of rectum (Z12.12) Active confirmed Problem 55936106 Preprocedural examination (Z01.818) Active confirmed Problem 930933898 Long-term (current) use of anticoagulants (Z79.01) Active confirmed Plan Of Treatment Future Test Test Name Order Date COLONOSCOPY 11/19/2015 Insurance Providers Payer Name Payer Address Payer Phone Subscriber Number Group Number Insured Name Patient Relationship to Insured Coverage Start Date Coverage End Date [facility] [address] [place] [address] [phone] [id number] ODALIS TRUJILLO Self - patient is the [...]
--- OUTSIDE RECORDS SUMMARY | 2025-01-09 14:24 | XMS_ITS | Patient Health Record ---
Author Organization [facility] Address [address] [place] [address] Care Team Providers Care Carton Lettering Machine Operator Name Role Phone Vannessa Barber Primary Care Provider Karen Marquez Unavailable [phone] Allergies Allergen (clinical drug ingredient) Drug/Non Drug [...] 500 Active Vitamin D3 Active Mult-Vitamin/Fluoride Active Problems Problem Type SNOMED Code ICD Code Onset Dates Problem Status W/U Status Risk Notes Problem Achilles bursitis (357371761) Achilles Tendonitis Bursitis (726.71) Active confirmed Problem Pain in limb (34313711) Pain in Limb (729.5) Active confirmed Problem Calcaneal spur (28624281) Calcaneal spur (726.73) Active confirmed Encounters Encounter Location Date Provider Diagnosis [facility] [address] [place] [address] 12/24/2024 [facility] [place] [address] 12/25/2024 Kaern Garces [facility] [address] [place] [address] 01/01/2025 Karen Garces Plan Of Treatment Pending Test Test Name Order Date X ray : Foot, left 2V 12/24/2014 X ray : Foot, right 2V 12/24/2014 Insurance Providers Payer Name Payer Address Payer Phone Subscriber Number Group Number Insured Name Patient Relationship to Insured Coverage Start Date Coverage End Date [facility] [address] [place] [phone] Erika Melchor Self - patient is the insured Medical (General) History Medical History History ICD Code Arthritis Back,Hip,and Knee pain Cholesterol Cataracts Sciatica Sinus conditions Measles Mumps Chicken pox Joint implants/screws Transfusions Surgical History Surgery Date(Month/Year) carpal tunnel surgery 2009, 2010 knee surgery, left 2013 knee surgery, right 2012 cataract surgery 2006
== END 2025-01-09 11:55 | disposition home or self-care (01) ==
LOC: HO.MAMMO 11:54
PROVIDERS: PCP Internal Medicine; Visit Provider Internal Medicine
DX: Z12.31 Encounter for screening mammogram for malignant neoplasm of breast (principal)
CPT/HCPCS: 77063; 77067

== ENCOUNTER → 2025-01-09 12:15 | Outpatient (BNV) | payer MEDICARE, SELFPAY | PROVIDERS: PCP Internal Medicine; Visit Provider Internal Medicine | DX: Z12.31 Encounter for screening mammogram for malignant neoplasm of breast (principal) | CPT/HCPCS: 77063; 77067 ==

== ENCOUNTER → 2025-01-28 23:59 | Outpatient (BNV) | payer MEDICARE, SELFPAY ==
--- NOTE | 2025-02-02 09:15 | MHC.OFFVIS ---
Intake Visit Reasons: Remote device check- [facility] Allergies Seasonal Allergies Allergy (Unknown, Verified 09/08/24 10:55) Unknown tizanidine Allergy (Unknown, Verified 09/08/24 10:55) LETHARGY garlic Adverse Reaction (Mild, Verified 09/08/24 10:55) [facility] Medical History Allergic rhinosinusitis Cough Cardiac pacemaker in situ Cervical spondylosis Tubular adenoma of colon Tarlov cyst Osteoarthritis, knee Carpal tunnel syndrome Sick sinus syndrome Paroxysmal atrial fibrillation Hypercholesterolemia Urge incontinence Osteopenia Surgical History History of colonoscopy History of permanent cardiac pacemaker placement History of knee replacement, total History of carpal tunnel release History of biopsy of bladder History of cataract surgery Family History Father MVA (motor vehicle accident) Mother Acute CVA (cerebrovascular accident) Maternal Grandmother Stomach cancer Paternal Grandmother Breast cancer Paternal Aunt Breast cancer Social History Housing: House Alcohol intake: never Patient Tobacco Use Status: Former Tobacco user Tobacco use type: Cigarette Years Smoked: stopped 1977 e-Cigarette/Vaping Use: Never Used Second Hand Smoke Exposure: No service: No Current occupational status: retired Cognitive needs: No Hearing needs: No Vision needs: Yes (reading glasses) Office Procedures Cardiac Device Check Cardiac Device Check Details: Remote pacemaker report generated 01/28/2025. Pacemaker function is adequate. No episodes of atrial fibrillation noted [id number] Cardiac Device Interrogation, pacemaker Procedure code (CPT) selection complete Assessment & Plan Assessment & Plan (1) Cardiac pacemaker in situ: Code(s): Z95.0 - Presence of cardiac pacemaker Category: Medical Plan: See above Coding Level of Care Code Procedure Only Diagnoses Cardiac pacemaker in situ Z95.0 CPT Codes Cardiac Device Check - Cardiac Device 12: [id number] Cardiac Device Interrogation, pacemaker ([id number])
== END ==
PROVIDERS: PCP Internal Medicine; Visit Provider Internal Medicine Cardiovascular Disease
DX: Z45.018 Encounter for adjustment and management of other part of cardiac pacemaker (principal)
CPT/HCPCS: 93294

== ENCOUNTER 2025-03-09 10:29 | Outpatient (REF) | payer MEDICARE, SELFPAY ==
[2025-03-09 12:59] LABS: MANUAL DIFF FLAG NO
[2025-03-09 13:08] LABS: Hematocrit 40.5 % (37.0-47.0); Hemoglobin 13.0 g/dl (12.0-16.0); Imm Gran Abs Auto 0.01 X10*3/uL (0.00-0.03); Imm Gran Pct Auto 0.2 % (0.0-0.4); Lymphocytes Absolute Auto 2.0 X10*3/uL (1.2-4.9); Mean Corpuscular HGB Conc 32.1 g/dl (31.0-35.0); Mean Corpuscular Hemoglobin 30.2 pg (27.0-33.0); Mean Corpuscular Volume 94.0 fL (80.0-98.0); NRBC Abs Auto 0.000 X10*3/uL (0.0-0.012); NRBC Pct Auto 0.0 /100WBC (0.0-0.2); Platelet Count 252 X10*3/uL (160-400); Red Blood Count 4.31 X10*6/uL (4.20-5.50); White Blood Count 5.8 X10*3/uL (4.8-10.8)
[2025-03-09 13:35] LABS: Alanine Aminotransferase 20 U/L (0-31); Albumin Level 4.2 g/dL (3.5-5.0); Alkaline Phosphatase 105 U/L (39-117); Anion Gap 11 (12-20); Aspartate Amino Transferase 25 U/L (5-31); Blood Urea Nitrogen 20 mg/dL (9-16); Calcium 9.2 mg/dL (8.4-10.2); Carbon Dioxide 28 mmol/L (22-29); Chloride 105 mmol/L (96-108); Cholesterol 195 mg/dL (<200); Estimated Glomerular Filt Rate > 60; HDL Cholesterol 72 mg/dL (>40); Potassium 4.7 mmol/L (3.3-5.1); Sodium 139 mmol/L (135-145); Total Protein 6.8 g/dL (6.5-8.0); Triglycerides 85 mg/dL (<150)
[2025-03-09 13:55] LABS: Folate 12.8 ng/mL (> or = 4.0); Vitamin B12 595 pg/mL (200-900)
[2025-03-09 13:58] LABS: Free T4 (Free Thyroxine) 0.99 ng/dL (0.71-1.85); Thyroid Stimulating Hormone 3.88 uIU/mL (0.32-4.0)
[2025-03-09 14:52] LABS: Hemoglobin A1C 96.1962 umol/L; Total Hemoglobin (HGBA1C) 2305.0486 umol/L
== END 2025-03-09 10:30 | disposition home or self-care (01) ==
LOC: HO.10HDL 10:29
PROVIDERS: Visit Provider Internal Medicine
DX: R73.02 Impaired glucose tolerance (oral) (principal); E78.00 Pure hypercholesterolemia, unspecified
CPT/HCPCS: 36415; 80053; 80061; 82306; 82607; 82746; 83036; 84439; 84443; 85025

== ENCOUNTER 2025-03-09 13:43 | Outpatient (RCR) | payer MEDICARE, SELFPAY | END 2025-04-20 11:10 | disposition home or self-care (01) | LOC: HO.PT 13:43 | PROVIDERS: PCP Internal Medicine; Visit Provider Podiatrist | DX: S82.892D Other fracture of left lower leg, subsequent encounter for closed fracture with routine healing (principal); S92.152D Displaced avulsion fracture (chip fracture) of left talus, subsequent encounter for fracture with routine healing | CPT/HCPCS: 97110; 97161; 97530; 97535 ==

== ENCOUNTER 2025-03-16 09:55 | Outpatient (AMB) | payer MEDICARE, SELFPAY ==
[2025-03-16 10:01] VITALS: BP 112/70; PULSE 78; O2SAT 98; BMI 27.5
--- NOTE | 2025-03-16 10:03 | A.OFFVIS_ITS ---
Intake Vital Signs 03/16/25 10:01 Height 5 ft 8 in Weight 181 lb BMI 27.5 BP 112/70 Blood Pressure Location Lt brachial Position Sitting Pulse 78 Pulse Source Pulse Oximeter Pulse Oximetry (%) 98 Oxygen Delivery Method Room Air Intake Visit Reasons: V G0439 Allergies Seasonal Allergies Allergy (Unknown, Verified 03/16/25 10:07) Unknown tizanidine Allergy (Unknown, Verified 03/16/25 10:07) LETHARGY garlic Adverse Reaction (Mild, Verified 03/16/25 10:07) SICK Medication List - Last Reconciled 03/16/25 by Vannessa Barber MD apixaban (Eliquis) 5 mg PO BID atorvastatin 20 mg PO DAILY cephalexin 500 mg PO 4 capsule 1 hour prior to procedure; cholecalciferol (vitamin D3) 25 mcg PO DAILY estradiol 0.01%(0.1mg/gram) 1 g vaginal 3XW famotidine (Pepcid) 20 mg PO BEDTIME 90 days metoprolol succinate ER 75 mg (1.5 x 50 mg) PO DAILY roeslsnd-rgn-awmr-FA-vit K-lut 8 mg iron-400 mcg-50 mcg (Centrum Silver Women) 1 tab PO DAILY omega 4-flz-ooc-fish oil 60-90-500 mg (Fish Oil) 1 cap PO DAILY solifenacin 5 mg PO BID HPI SWV G0439 HPI Details [facility] cardiology [facility], Urology Dr. Stern 1, Ophthalmology Dr. Cope, 12/16/2024 fall - missed a step- went to urgent care and had a walking boot- advised podiatry [place] [facility] and advised PT. healed good. seen dermatology sent clobetasol propionate 0.05% HPI Comments History of Present Illness Details History of Present Illness The patient is an 80-year-old overweight female presenting for an annual wellness visit. Her medical history is significant for sick sinus syndrome with a pacemaker, atrial fibrillation on apixaban anticoagulation, and hypercholesterolemia managed with atorvastatin 20 mg. She has ongoing follow-up with cardiology for pacemaker monitoring, with her next appointment scheduled for next month. Her last echocardiogram in February of last year showed an ejection fraction of 55% with grade 2 diastolic dysfunction. In November, the patient sustained an indeterminate avulsion fracture of the dorsal talar neck of her left foot after falling down the stairs. She was seen at an urgent care, treated with a walking boot, and subsequently followed up with a developing machine operator, Dr. Ibarra, and completed physical therapy. She reports the fracture is now fully healed. The patient has a history of osteopenia, with her last bone density scan performed in March 2023. She also has gastroesophageal reflux disease (GERD), for which she takes famotidine, and prediabetes, with a recent hemoglobin A1c of 6.0%. Her LDL cholesterol was 106 on recent labs. For urological issues, she follows with urology for overactive bladder, intrinsic sphincter deficiency, mixed urinary incontinence, and atrophic postmenopausal vaginitis. She is treated with solifenacin and estradiol hormone cream. Ophthalmology follow-up is with Dr. Trivedi for a cracked retina in the right eye, which results in poor vision in that eye. She also has a history of eczema, which responded well to a steroid cream prescribed by a brokerage clerk. Health Maintenance - Last colonoscopy was in 2015. - Last [facility]. - Last bone density scan was in March 2023, showing osteopenia. - A new bone density scan will be ordere d. - Discussed importance of calcium, vitam in D, and staying active for bone health. - Follows with cardiology, urology, opht halmology, and podiatry. - Vaccinations are up-to-date, including flu and COVID-19 shots on February 12, as well as shingles, tetanus (Tdap in 2022), RSV, and pneumonia. - A request for cephalexin for dental pr ophylaxis has been sent. Social History - Alcohol Use: Denies any alcohol consum ption. - Tobacco Use: Denies smoking cigarettes . - Diet: Reports eating a lot of fruit; c ounseled to moderate intake due to sugar content and to reduce consumption of pasta, bread, rice, and potatoes due to prediabetes. - Exercise: Walks with her dog and occas ionally gets short of breath when walking uphill. - Weight Management: Patient's weight is stable, but she expresses a desire to lose weight. Results - Labs (March 09): - CBC: Normal, no anemia. - Chemistries: Electrolytes and renal fu nction normal. - Hemoglobin A1c: 6.0%. - Lipid Panel: LDL cholesterol is 106 mg /dL. - LFTs, Thyroid, B12, Folic Acid: All no rmal. - Imaging: - Left Foot X-ray (December 18, 2024): Ind eterminate avulsion fracture of the dorsal talar neck. - Echocardiogram (February, last year): Ejection fraction 55%, grade 2 diastolic dysfunction. - Procedures: - Bone Density Scan (March 2023): Rev ealed osteopenia. [facility] Medical History Allergic rhinosinusitis Cough Cardiac pacemaker in situ Cervical spondylosis Tubular adenoma of colon Tarlov cyst Osteoarthritis, knee Carpal tunnel syndrome Sick sinus syndrome Paroxysmal atrial fibrillation Hypercholesterolemia Urge incontinence Osteopenia Surgical History History of colonoscopy History of permanent cardiac pacemaker placement History of knee replacement, total History of carpal tunnel release History of biopsy of bladder History of cataract surgery Family History Father MVA (motor vehicle accident) Mother Acute CVA (cerebrovascular accident) Maternal Grandmother Stomach cancer Paternal Grandmother Breast cancer Paternal Aunt Breast cancer Social History Housing: House Alcohol intake: never Patient Tobacco Use Status: Former Tobacco user Tobacco use type: Cigarette Years Smoked: stopped 1978 e-Cigarette/Vaping Use: Never Used Second Hand Smoke Exposure: No service: No Current occupational status: retired Cognitive needs: No Hearing needs: No Vision needs: Yes (reading glasses) Questionnaire Medicare Wellness Checkup What is your age?: 80 or older What gender do you identify with?: female During the past 4 weeks, how much have you been bothered by emotional problems such as feeling anxious, depressed, irritable, sad or downhearted, and blue?: not at all During the past 4 weeks, has your physical & emotional health limited your social activities with family, friends, neighbors, or groups?: not at all During the past 4 weeks, how much bodily pain have you generally had?: very mild pain During the past 4 weeks, was someone available to help you if you needed & wanted help?: yes, a little During the past 4 weeks, what was the hardest physical activity you could do for at least 2 minutes?: light Can you get to places out of walking distance without help? (For eg., can you travel alone on buses, taxis or drive your car?): Yes Can you go shopping for groceries or clothes without someone's help?: Yes Can you prepare your own meals?: Yes Can you do your housework without help?: Yes Because of any health problems, do you need the help of another person with your personal care needs such as eating, bathing, dressing or getting around the house?: No Can you handle your own money without help?: Yes During the past 4 weeks, how would you rate your health in general?: excellent During the past 4 weeks how have things been going for you?: pretty well Are you having difficulties driving your car?: no Do you always fasten your seat belt when you are in a car?: yes, usually During past 4 weeks, have you been bothered by the following: never: Falling or dizzy when standing up, Sexual problems?, Teeth or denture problems? and Problems using the telephone?, seldom: Trouble eating well? and sometimes: Tiredness or fatigue? Have you fallen 2 or more times in the past year?: Yes Are you afraid of falling?: No Are you a smoker?: no During the past 4 weeks, how many drinks of wine, beer, or other alcoholic beverages did you have?: no alcohol at all Do you exercise for about 20 minutes 3 or more times a week?: no, I usually do not exercise this much Have you been given information to help with the following?: no: Hazards in your house that might hurt you? and no: Keeping track of your medications? How often do you have trouble taking medicines the way you have been told to take them?: I always take medicine as prescribed How confident are you that you can control & manage most of your health problems?: very confident What is your race?: White PHQ-9 Over the last 2 weeks, how often have you been bothered by any of the following problems? 1. Little interest or pleasure in doing things: not at all 2. Feeling down, depressed, or hopeless: not at all 3. Trouble falling or staying asleep, or sleeping too much: not at all 4. Feeling tired or having little energy: several days 5. Poor appetite or overeating: not at all 6. Feeling bad about yourself - or that you are a failure or have let yourself or your family down: not at all 7. Trouble concentrating on things, such as reading the newspaper or watching television: not at all 8. Moving or speaking so slowly that other people could have noticed. Or the opposite - being so fidgety or restless that you have been moving around a lot more than usual: not at all 9. Thoughts that you would be better off or of hurting yourself in some way: not at all Total score: 1 Depression Screening Interpretation: Positive Depression Screening Done: Yes Source: Developed by Drs. Al aMy, Meghan Hackett, Robby Rios and colleagues, with an educational jose from [employer]. Review of Systems Narrative Review of Systems - Constitutional: Denies fever. - HEENT: Reports poor vision in the right eye due to cracked retina. Hearing is good. Denies problems with swallowing. Reports mild stuffiness in one nostril. - Cardiovascular: Reports occasional, brief shortness of breath when walking uphill. Reports facial and leg swelling. Denies syncope, dizziness, waking short of breath, chest pain, or heaviness. - Gastrointestinal: Reports a rare, brief episode of heartburn despite taking famotidine. Denies nausea or vomiting. Reports regular bowel movements. - Genitourinary: Reports waking two times per night to urinate. Const Denies poor appetite and Denies weakness Eyes Denies no additional complaints ENT Reports Normal hearing present, Denies dizziness, Denies nasal congestion, Denies tinnitus and Denies sore throat Card Denies chest pain, Denies syncope, Denies rapid heart rate and Denies dyspnea Resp Denies cough and Denies dyspnea GI Denies change in stool character, Reports constipation, Denies diarrhea, Denies nausea and Denies vomiting Denies urinary frequency, Denies difficulty voiding and Denies dysuria Neuro Reports Normal hearing present, Denies confusion, Denies dizziness, Denies syncope and Denies weakness Psych Denies confusion Physical Exam Exam Exam: Physical Exam General: Cooperative, healthy appearing, comfortable, no acute distress and well developed Orientation: Patient oriented x3 Limitations: No limitations Head: Normal to inspection Ears: Hearing grossly normal bilaterally, ear wax removed from one ear Nose: Normal external nose present, mild swelling noted Face and sinus: Normal facial exam, mild swelling noted Eyes: Appearance normal, both eyes and all related structures, mild swelling noted Neck: Normal visual inspection and Yes full ROM Respiratory: Normal respiratory effort and able to speak in complete sentences. Clear to auscultation bilaterally Cardiovascular: Regular rate and rhythm. Normal S1 and S2 GI: Normal to inspection. Soft to palpation and nontender Skin: No rashes or lesions noted Neuro: Patient oriented x3 Extremities: Normal to inspection, mild swelling noted on legs Vital Signs: Last Vital Signs Pulse 78 03/16/25 10:01 BP 112/70 03/16/25 10:01 Pulse Ox 98 03/16/25 10:01 Oxygen Delivery Method Room Air 03/16/25 10:01 BMI result Body Mass Index 27.5 Const General: No confusion Orientation/consciousness: No confusion HEENT Other: Impacted cerumen right Head: Yes normocephalic Ears: external ears normal Face and sinus: Yes normal facial exam Mouth: moist mucous membranes Throat: Yes tonsils normal Eyes Conjunctivae: conjunctivae normal Pupils: Equal, round and reactive pupils present and Pupil accommodation reflex normal Direct Ophthalmoscopy: normal light reflex Neck Neck: No lymphadenopathy Thyroid: Thyroid normal Chest Chest palpation & inspection: normal inspection of the chest Resp Effort & Inspection: normal respiratory effort and no audible wheezes Auscultation: clear to auscultation bilaterally, no crackles, no wheezes and lung sounds not diminished Cardio Rate: regular rate Rhythm: regular rhythm Peripheral pulses: radial pulses present and dorsalis pedis present GI Palpation (GI): no masses Auscultation: normal bowel sounds and normoactive bowel sounds Rectal Exam - Female: deferred Skin General skin exam: no rashes or lesions noted Rashes: no rashes Neuro General: No confusion Cranial nerves: Yes Equal, round and reactive pupils present and Yes Normal hearing present Cognition (Neuro): normal cognition Gait exam (Neuro): Normal gait present Motor exam (neuro): 5/5 motor strength present throughout Deep tendon reflexes (DTR's): Right brachioradialis reflex intensity grade: 2+, Left brachioradialis reflex intensity grade: 2+, Right patellar reflex intensity grade: 2+ and Left patellar reflex intensity grade: 2+ Extrem Other: LE swelling edema ++ General: Yes edema Office Procedures Cerumen Removal From which ear canal was the cerumen removed: right Removal: otoscope w/curette and cerumen loop/spoon Notes: patient tolerated procedure well, no complications and ear canal clear [id number] Wax Removal by Spoon/Curette Assessment & Plan Assessment & Plan (1) Medicare annual wellness visit, subsequent: Code(s): Z00.00 - Encounter for general adult medical examination without abnormal findings Plan: Patient is advised to eat healthy, keep well hydrated, keep active and have adequate sleep. (2) Paroxysmal atrial fibrillation: Comment: Dr. Kingston pacemaker July 2018 Code(s): I48.0 - Paroxysmal atrial fibrillation Plan: Continue with Eliquis anticoagulation January 2025 last blood work (3) Sick sinus syndrome: Code(s): I49.5 - Sick sinus syndrome Plan: Patient on a pacemaker and being followed up by Cardiology (4) Cardiac pacemaker in situ: Code(s): Z95.0 - Presence of cardiac pacemaker Plan: Continue to follow up with Cardiology (5) Hypercholesterolemia: Code(s): E78.00 - Pure hypercholesterolemia, unspecified Plan: Avoid fried foods, chicken skin, eggs, butter margarine, pastries and meat. Be it pork or beef they have a lot of cholesterol LDL goal of less than 130 and triglyceride of less than 150 on atorvastatin 20 mg once a day (6) Impaired glucose tolerance: Code(s): R73.02 - Impaired glucose tolerance (oral) Plan: Decrease the amount of carbohydrate intake, pasta, bread, rice and potatoes are all sugar and that is aside from all the sweet stuff, remember that fruits are good but they are Sweet also. Hemoglobin A1c 6 (7) Osteopenia: Code(s): M85.80 - Other specified disorders of bone density and structure, unspecified site Plan: Continue with follow-up with bone density. Discussed about calcium and vitamin- D and keeping active (8) GERD (gastroesophageal reflux disease): Code(s): K21.9 - Gastro-esophageal reflux disease without esophagitis Qualifiers: Esophagitis presence: without esophagitis Qualified Code(s): K21.9 - Gastro-esophageal reflux disease without esophagitis Plan: Avoid the foods that causes that usually spicy foods, tomato products, juices, coffee, soda and foods that your sensitive to. After eating do not lie down, allow 3-4 hours before in lie down. And keep the head of bed above 30 degrees to avoid the acid from going up. (9) Urinary incontinence: Comment: Dr. galindo sacral nerve roots electrode implant May 2020 Code(s): R32 - Unspecified urinary incontinence Qualifiers: Urinary Incontinence type: mixed stress and urge incontinence Qualified Code(s): N39.46 - Mixed incontinence Plan: Patient is being followed up by Urology was given estradiol cream as well as solifenacin 5 mg twice a day (10) Foot fracture, left: Code(s): S92.902A - Unspecified fracture of left foot, initial encounter for closed fracture Plan: Continue with physical therapy. (11) Heart failure with preserved ejection fraction: Code(s): I50.30 - Unspecified diastolic (congestive) heart failure (12) Impacted cerumen, right ear: Code(s): H61.21 - Impacted cerumen, right ear Plan: scoop used and TM intact no irrigation Plan Plan Patient was informed and verbally consented to the use of an ambient scribe for clinic note documentation during this visit. 1. Wellness Exam And Health Maintenance Patient is up-to-date on vaccinations including flu, COVID, tetanus, RSV, and pneumonia. Will order a new bone density scan, as the last one was two years ago and she has had an intervening fracture. Discussed continuing calcium and vitamin D supplementation and staying active. Refilled cephalexin for dental prophylaxis. Plan for follow-up in a couple of months. 2. Diastolic Dysfunction With Edema The patient has grade 2 diastolic dysfunction noted on her last echocardiogram and presents with new mild facial and bilateral lower extremity edema, raising concern for congestive heart failure. A low-dose water pill will be prescribed, to be taken daily or every other day, to manage fluid retention. The patient is instructed to weigh herself daily to monitor fluid status. Will order a blood test (pro-BNP) to help assess for congestive heart failure, to be done in 1-2 weeks. She will continue to follow up with cardiology, with her next appointment scheduled for next month. 3. Atrial Fibrillation And Sick Sinus Syndrome The patient remains on anticoagulation with apixaban 5mg twice daily and rate control with metoprolol. She will continue to be monitored by her data assistant for her pacemaker. 4. Prediabetes The patient's hemoglobin A1c is 6.0%, consistent with prediabetes. No medication is indicated at this time. Provided dietary counseling on moderating fruit intake and reducing consumption of pasta, bread, rice, and potatoes. 5. Hypercholesterolemia The patient's LDL cholesterol is 106, which is within the goal of less than 130. She will continue atorvastatin 20 mg daily. 6. Overactive Bladder And Atrophic Vaginitis Patient will continue her current regimen of Solifenacin 5 mg twice a day and estradiol cream as prescribed by her urologist. She will continue to follow up with urology. 7. Gastroesophageal Reflux Disease The patient's heartburn is well-controlled on famotidine, with only a rare breakthrough symptom. She will continue famotidine as prescribed. 8. Cerumen Impaction, Right Ear Impacted cerumen was noted in the right ear canal and successfully removed in the office. Discussion Notes I discussed the physical exam findings with the patient, particularly the new mild swelling in her face and legs. I explained that this, in conjunction with her known history of grade 2 diastolic dysfunction, is concerning for the development of congestive heart failure. We discussed starting a low-dose water pill to help remove excess fluid, and she agreed. I instructed her to weigh herself daily and informed her that a prescription was sent to her pharmacy. I also explained the need for a new blood test to further evaluate for heart failure, which can be done at the lab in the next couple of weeks. Additionally, I informed her that I am ordering a new bone density scan, as it has been two years since her last one and she has had an intervening fracture. We briefly reviewed her lab results, including her prediabetic status, and I provided dietary counseling to limit fruits and simple carbohydrates. I also reminded her to notify my office of any urgent care visits or falls in the future. We scheduled a follow-up visit in two months. Patient Instructions - I have sent a prescription for a new medication, a water pill, to your pharmacy. You can take this every day or every other day. This will help with the swelling in your legs and face. - Please weigh yourself every day in the morning and keep a record. - I have ordered a new blood test to check on your heart. Please go to the lab to have this done in the next 1-2 weeks. You do not need to fast for this test. - An order for a new bone density scan has also been placed. The imaging department will call you to schedule this. - Continue taking all your current medications as prescribed. - To help manage your blood sugar, try to limit your intake of pasta, bread, rice, and potatoes. While fresh fruit is healthy, do not overdo it as it contains sugar. - Your vaccinations are all up to date. - Let me know if your shortness of breath gets worse. - Please schedule a follow-up appointment to see me in a couple of months. Orders: Orders XR DEXA axial skeleton Today M81.0 - Age-related osteoporosis without current pathological fracture, S92.902A - Unspecified fracture of left foot, initial encounter for closed fracture NT Pro B Type Natriuretic Pept Today I48.0 - Paroxysmal atrial fibrillation Basic Metabolic Panel Today I48.0 - Paroxysmal atrial fibrillation Magnesium Today I48.0 - Paroxysmal atrial fibrillation Medications: New clobetasol 0.05% 1 appl topical BID 45 grams 0RF 2 weeks S92.902A - Unspecified fracture of left foot, initial encounter for closed fracture furosemide (Lasix) 20 mg PO DAILY 30 tabs 0RF I48.0 - Paroxysmal atrial fibrillation Refilled cephalexin 500 mg PO 4 capsule 1 hour prior to procedure; 32 caps 0RF R73.02 - Impaired glucose tolerance (oral) Quality Reporting (2019) Depression/Bipolar (159/160/161/177) PHQ-9: Total score: 1 Coding Level of Care Code Medicare Subsequent (G0439) Est Pt Level 3 (89627) Diagnoses Medicare annual wellness visit, subsequent Z00.00 Paroxysmal atrial fibrillation I48.0 Sick sinus syndrome I49.5 Cardiac pacemaker in situ Z95.0 Hypercholesterolemia E78.00 Impaired glucose tolerance R73.02 Osteopenia M85.80 Gastroesophageal reflux disease without esophagitis K21.9 Esophagitis presence: without esophagitis Mixed stress and urge urinary incontinence N39.46 Urinary Incontinence type: mixed stress and urge incontinence Foot fracture, left S92.902A Heart failure with preserved ejection fraction I50.30 Impacted cerumen, right ear H61.21 CPT Codes Office Procedure - CPT: 29248-Xtb Wax Removal by Spoon/Curette ([id number])
== END 2025-03-16 10:55 | disposition home or self-care (01) ==
LOC: HO.HMCH 09:56
PROVIDERS: PCP Internal Medicine; Visit Provider Internal Medicine
DX: Z00.00 Encounter for general adult medical examination without abnormal findings (principal); I48.0 Paroxysmal atrial fibrillation; I49.5 Sick sinus syndrome; I50.30 Unspecified diastolic (congestive) heart failure; Z95.0 Presence of cardiac pacemaker; E78.00 Pure hypercholesterolemia, unspecified; R73.02 Impaired glucose tolerance (oral); M85.80 Other specified disorders of bone density and structure, unspecified site; K21.9 Gastro-esophageal reflux disease without esophagitis; N39.46 Mixed incontinence; S92.902A Unspecified fracture of left foot, initial encounter for closed fracture; H61.21 Impacted cerumen, right ear

== ENCOUNTER → 2025-03-16 09:55 | Outpatient (BNVA) | payer MEDICARE, SELFPAY | PROVIDERS: PCP Internal Medicine; Visit Provider Internal Medicine | DX: Z00.00 Encounter for general adult medical examination without abnormal findings (principal); M85.80 Other specified disorders of bone density and structure, unspecified site; K21.9 Gastro-esophageal reflux disease without esophagitis; R73.03 Prediabetes; N32.81 Overactive bladder; N39.46 Mixed incontinence; I48.0 Paroxysmal atrial fibrillation; I49.5 Sick sinus syndrome; E78.00 Pure hypercholesterolemia, unspecified; R73.02 Impaired glucose tolerance (oral); H61.21 Impacted cerumen, right ear; R60.9 Edema, unspecified; S92.902D Unspecified fracture of left foot, subsequent encounter for fracture with routine healing; X58.XXXD Exposure to other specified factors, subsequent encounter; Z95.0 Presence of cardiac pacemaker | CPT/HCPCS: 69210; 96127; 99212 ==

== ENCOUNTER 2025-03-30 11:31 | Outpatient (REF) | payer MEDICARE, SELFPAY ==
[2025-03-30 12:47] LABS: Anion Gap 10 (12-20); Blood Urea Nitrogen 21 mg/dL (9-16); Calcium 9.0 mg/dL (8.4-10.2); Carbon Dioxide 29 mmol/L (22-29); Chloride 107 mmol/L (96-108); Estimated Glomerular Filt Rate > 60; Magnesium 2.1 mg/dL (1.6-2.6); Potassium 5.1 mmol/L (3.3-5.1); Sodium 141 mmol/L (135-145)
[2025-03-30 12:50] LABS: NT Pro B Type Natriuretic Pept 102.1 pg/mL (<300)
== END 2025-03-30 11:32 | disposition home or self-care (01) ==
LOC: HO.LAB 11:31
PROVIDERS: Visit Provider Internal Medicine
DX: I48.0 Paroxysmal atrial fibrillation (principal)
CPT/HCPCS: 36415; 80048; 83735; 83880

== ENCOUNTER 2025-04-06 13:15 | Outpatient (REF) | payer MEDICARE, SELFPAY ==
--- NOTE | ~2025-04-06 | MM_ITS ---
EXAMINATION: DXA BONE DENSITY AXIAL HISTORY: M81.0 - Age-related osteoporosis without current pathological fracture TECHNIQUE: [employer] Dual energy absorptiometry (DEXA) of the lumbar spine, total left hip, and femoral neck was performed. COMPARISON: Comparison is made with the prior examination most recent dated March 2023. FINDINGS: The bone mineral density of the lumbar spine is 1.124 g/cm2, corresponding to a T-score of -0.4, and a Z-score of 1.0. This is indicative of normal bone mineral density. This represents a BMD change of 3.7% compared to the prior exam. This is not statistically significant. The bone mineral density of the left total hip is 0.843 g/cm2, corresponding to a T-score of -1.3, and a Z-score of 0.4. This is indicative of osteopenia. This represents a BMD change of 5.6% compared to the prior exam. The bone mineral density of the left femoral neck is 0.816 g/cm2, corresponding to a T-score of -1.6, and a Z-score of 0.2. This is indicative of osteopenia. This represents a BMD change of 1.9% compared to the prior exam. This is not statistically significant. FRACTURE RISK: The FRAX index suggests a ten year probability of major osteoporotic fracture of 20.2%, and of hip fracture 4.6%. MM/XR DEXA axial skeleton IMPRESSION: Based on bone mineral density, and according to World Health Organization (WHO) criteria, the diagnosis is consistent with osteopenia based on lowest T score of -1.6 in the left femoral neck. Treatment Recommendations: NOF guidelines recommend consideration for treatment in postmenopausal women and men age 50 and older presenting with the following: -A hip or vertebral (clinical or morphometric) fracture. -T-score less than or equal to -2.5 at the femoral neck or spine after appropriate evaluation to exclude secondary causes. -Low bone mass at the hip or spine and a 10-year fracture probability by FRAX of greater than or equal to 3% for hip fracture or greater than or equal to 20% for major osteoporotic fracture based on the [place] adapted WHO algorithm. Other Recommendations: All treatment decisions require clinical judgment and consideration of individual patient factors, including patient preferences, comorbidities, previous drug use, risk factors not captured in the FRAX model (e.g. frailty, falls, vitamin D deficiency, increased bone turnover, interval significant decline in bone density) and possible under or overestimation of fracture risk by FRAX. Additional medical evaluation for secondary cause of low bone mineral density may be appropriate. FUTURE SCAN RECOMMENDATION: People with diagnosed cases of osteoporosis or at high risk for fracture should have regular bone mineral density tests. For patients eligible for Medicare, routine testing is allowed once every 2 years. The testing frequency can be increased to one year for patients who have rapidly progressing disease, those who are receiving or discontinuing medical therapy to restore bone mass, or have additional risk factors. Statistically, 68% of repeat scans fall within 1 SD (+/- 0.010 g/cm2 for AP spine L1-L4) and 1 SD (+/- 0.012 g/cm2 for femur total) FRAX is a trademark of the [employer] [facility] [employer], a World Health Organization (WHO) Collaborating Center. Electronically signed by: Fartun Kamara MD 04/06/2025 04:12 PM [facility] [place]
== END 2025-04-06 13:16 | disposition home or self-care (01) ==
LOC: HO.MAMMO 13:15
PROVIDERS: PCP Internal Medicine; Visit Provider Internal Medicine
DX: S92.902A Unspecified fracture of left foot, initial encounter for closed fracture (principal); M81.0 Age-related osteoporosis without current pathological fracture
CPT/HCPCS: 77080

== ENCOUNTER → 2025-04-06 13:30 | Outpatient (BNV) | payer MEDICARE, SELFPAY | PROVIDERS: PCP Internal Medicine; Visit Provider Radiology Diagnostic Radiology | DX: E28.39 Other primary ovarian failure (principal) | CPT/HCPCS: 77080 ==

== ENCOUNTER 2025-04-14 10:32 | Outpatient (AMB) | payer MEDICARE, SELFPAY ==
--- OUTSIDE RECORDS SUMMARY | 2025-02-27 03:30 | XMS_ITS ---
Author Organization [facility] Address [address] [place] [address] Care Team Providers Care Transition Nurse Name Role Phone Vannessa Barber Primary Care Provider Karen Marquez [phone] Encounters Encounter Location Date Provider Diagnosis [address] [address] 02/27/2025 Karen Garces Plan Of Treatment No Information Progress Notes * Erika TRUJILLODOB:1945 (80 yo F)Acc No.[id number]:02/27/2025 Progress Notes Patient: Erika GATES Provider: Karli Garces DPM :1945 A ge:80 Y S ex:Female Date:02/27/2025 Address:[address] [place], [place] [id number] Pcp:Vannessa Barber Subjective: * Chief Complaints: * * Medical History: Objective: * Vitals: Assessment: Plan: * Treatment: * Images: * The named appointment provid er may or may not be the originator of this progress note, and it is not deemed complete until electronically signed by the appointment provider. Sign off status: Pending * Provider: Karli Garces DPM Date: Generated for Kettyi ng/Faelyseg/eTransmitting on: 1 06/15/2024 01:19 PM EST
[2025-04-14 10:40] VITALS: BP 120/78; PULSE 61; BMI 27.1
--- NOTE | 2025-04-14 10:40 | MHC.OFFVIS ---
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: No Allergies Seasonal Allergies Allergy (Unknown, Verified 03/16/25 10:07) Unknown tizanidine Allergy (Unknown, Verified 03/16/25 10:07) LETHARGY garlic Adverse Reaction (Mild, Verified 03/16/25 10:07) SICK Medication List - Last Reconciled 04/14/25 by Zackary Kingston MD apixaban (Eliquis) 5 mg PO BID atorvastatin 20 mg PO DAILY cephalexin 500 mg PO 4 capsule 1 hour prior to procedure; cholecalciferol (vitamin D3) 25 mcg PO DAILY clobetasol 0.05% 1 appl topical BID 2 weeks estradiol 0.01%(0.1mg/gram) 1 g vaginal 3XW famotidine (Pepcid) 20 mg PO BEDTIME 90 days furosemide 20 mg PO DAILY 30 days metoprolol succinate ER 75 mg (1.5 x 50 mg) PO DAILY cnabujhb-qvh-lmxm-FA-vit K-lut 8 mg iron-400 mcg-50 mcg (Centrum Silver Women) 1 tab PO DAILY omega 6-cnc-tmt-fish oil 60-90-500 mg (Fish Oil) 1 cap PO DAILY solifenacin 5 mg PO BID HPI Comments Details: Erika comes for follow-up. Recently started on low-dose Lasix therapy due to leg edema. Her NT pro BNP was within normal limits. She has no other heart failure symptoms. Denies any worsening shortness of breath, orthopnea, PND. She had developed recent fall which was accidental with ankle fracture which then he will then she is currently doing well on Bactrim functionality. No prolonged palpitation irregular heartbeat. No lightheadedness, syncope. No exertional chest pain. No bleeding issues or neurologic events. Her leg edema has improved with Lasix therapy [facility] Medical History Allergic rhinosinusitis Cough Cardiac pacemaker in situ Cervical spondylosis Tubular adenoma of colon Tarlov cyst Osteoarthritis, knee Carpal tunnel syndrome Sick sinus syndrome Paroxysmal atrial fibrillation Hypercholesterolemia Urge incontinence Osteopenia Surgical History History of colonoscopy History of permanent cardiac pacemaker placement History of knee replacement, total History of carpal tunnel release History of biopsy of bladder History of cataract surgery Family History Father MVA (motor vehicle accident) Mother Acute CVA (cerebrovascular accident) Maternal Grandmother Stomach cancer Paternal Grandmother Breast cancer Paternal Aunt Breast cancer Social History Housing: House Alcohol intake: never Patient Tobacco Use Status: Former Tobacco user Tobacco use type: Cigarette Years Smoked: 1977 e-Cigarette/Vaping Use: Never Used Second Hand Smoke Exposure: No service: No Current occupational status: retired Cognitive needs: No Hearing needs: No Vision needs: Yes (reading glasses) Review of Systems Const Denies chills, Denies fatigue, Denies fever(s), Denies frequent falls, Denies weakness, Denies weight gain and Denies weight loss ENT Denies dizziness Card Denies chest pain, Denies leg edema, Denies lightheadedness, Denies palpitations, Denies dyspnea, Denies dyspnea on exertion, Denies orthopnea and Denies other (loss of consciousness) Resp Denies cough, Denies dyspnea and Denies dyspnea on exertion GI Denies hematochezia and Denies change in stool character Musc Denies abnormal gait, Denies muscle weakness, Denies numbness, Denies radiating pain into limb and Denies tingling Neuro Denies abnormal gait, Denies dizziness, Denies frequent falls, Denies numbness, Denies tingling and Denies weakness Endo Denies fatigue and Denies palpitations Physical Exam Vital Signs: Last Vital Signs Pulse 61 04/14/25 10:40 BP 120/78 04/14/25 10:40 BMI result Body Mass Index 27.1 Const General: cooperative, comfortable, no acute distress, alert and awake Nutritional Appearance: average body habitus Orientation/consciousness: patient oriented x3 Limitations: no limitations Neck Neck: Yes trachea midline, Yes supple and Yes no JVD Resp Effort & Inspection: normal respiratory effort Auscultation: clear to auscultation bilaterally Cardio Jugular venous distension: no JVD Palpation: normal PMI Rate: regular rate Rhythm: regular rhythm Heart sounds: S1 normal heart sound present and S2 normal heart sound present Skin General skin exam: no rashes or lesions noted Neuro General: patient oriented x3 and no focal motor deficits Extrem General: Yes no clubbing, cyanosis or edema Psych Appearance: grossly normal Affect: Anxious affect present Office Procedures Cardiac Device Check Cardiac Device Check Details: Dual-chamber [place] pacemaker in place. Programmed in DDDR at 60 beats per minute. Atrial pacing 87% of time. No episodes of atrial fibrillation noted. One episode of nonsustained VT noted. Atrial ventricular sensing is excellent. Atrial capture thresholds excellent. Ventricular capture thresholds elevated but stable. Lead impedance is stable. Battery life is at 3-4 years [id number] Cardiac Device Check, pacemaker dual lead Procedure code (CPT) selection complete Assessment & Plan Assessment & Plan (1) Paroxysmal atrial fibrillation: Comment: Dr. Kingston pacemaker July 2018 Code(s): I48.0 - Paroxysmal atrial fibrillation Category: Medical Plan: Paroxysmal atrial fibrillation which has remained suppressed and has had no recurrence by pacer telemetry. Continue current metoprolol therapy. No indication for antiarrhythmic drug therapy. Continue full oral anticoagulation, currently on Eliquis 5 mg b.i.d.. Semi annual renal function test should be pursued. (2) Cardiac pacemaker in situ: Code(s): Z95.0 - Presence of cardiac pacemaker Category: Medical Plan: Cardiac pacemaker in-situ for sick sinus syndrome. Pacemaker is working well. Reprogrammed for adequate functioning. Follow-up remotely every 3 months. Follow up in the clinic in 6 months time. (3) NSVT (nonsustained ventricular tachycardia): Code(s): I47.2 - Ventricular tachycardia Category: Medical Plan: Nonsustained VT without any obvious significant structural heart abnormality. Continue metoprolol therapy. Will continue monitor pacer telemetry. No indication for antiarrhythmic drug therapy. Will follow up in the clinic in 6 months time, sooner PRN. Thank you for allowing me to partake in her care Coding Level of Care Code Est Pt Level 4 (70167) Diagnoses Paroxysmal atrial fibrillation I48.0 Cardiac pacemaker in situ Z95.0 NSVT (nonsustained ventricular tachycardia) I47.2 CPT Codes Cardiac Device Check - Cardiac Device 2: [id number] Cardiac Device Check, pacemaker dual lead ([id number])
--- OUTSIDE RECORDS SUMMARY | 2025-04-14 13:19 | XMS_ITS | Patient Health Record ---
Author Organization [facility] Address [address] [place] [id number] Care Team Providers Care Filling Machine Tender Name Role Phone Fiorella SINGH, Mariangel Primary Care Provider Al Christianson [phone] Reason For Referral No Information Medications Medication SIG (Take, Route, Frequency, Duration) Notes Start Date End Date Status Amoxicillin 500 MG Capsule 3 capsules Or ally as directed after the colonoscopy; Duration: 1 days 11/19/2015 Active Keflex Active Vitamin D-3 Active Fish Oil Active Angelique Active Warfarin Sodium Acti ve oxyBUTYnin Active Atorvastatin Calcium Active Social History Social History Additional Details Category Social Info Options Details Miscellaneous: Marital status: Occupation: retired Section Notes: Nonsmoker; no sig alcohol Problems Problem Type SNOMED Code ICD Code Onset Dates Problem Status W/U Status Risk Notes Problem Screening for malignant neoplasm of colon (836440658) Encounter for screening for malignant neoplasm of colon (Z12.11) Active confirmed Problem History of adenomatous polyp of colon (938955259) History of adenomatous polyp of colon (Z86.010) Active confirmed Problem Screening for malignant neoplasm of rectum (982056411) Encounter for screening for malignant neoplasm of rectum (Z12.12) Active confirmed Problem Preprocedural examination (701687346059326) Preprocedural examination (Z01.818) Active confirmed Problem Long-term current use of anticoagulant (555453624) Long-term (current) use of anticoagulants (Z79.01) Active confirmed Plan Of Treatment Future Test Test Name Order Date COLONOSCOPY 11/19/2015 Insurance Providers Payer Name Payer Address Payer Phone Subscriber Number Group Number Insured Name Patient Relationship to Insured Coverage Start Date Coverage End Date [facility] [address] [place] [phone] [id number] ODALIS TRUJILLO Self - patient is the insured Medical (General) History Medical History History ICD Code Colonoscopy 2003-04 small tub ular adenoma removed; neg colonoscopies in 2004 and 09/2010 except for a hyperplastic polyp, sigmoid diverticulosis, and internal hemorrhoids Hyperlipidemia A fib--sees Dr. Kingston Overactive bladder Surgical History Surgery Date(Month/Year) Bilateral knee replacements--right and left 05/2013 Bilateral Carpal tunnel surgery
--- OUTSIDE RECORDS SUMMARY | 2025-04-14 13:20 | XMS_ITS | Patient Health Record ---
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 Name Role Phone Vannessa aBrber Primary Care Provider Karen Marquez Unavailable [phone] Allergies Allergen (clinical drug ingredient) Drug/Non Drug [...] W/U Status Risk Notes Problem Achilles bursitis (586210565) Achilles Tendonitis Bursitis (726.71) Active confirmed Problem Pain in limb (82937043) Pain in Limb (729.5) Active confirmed Problem Calcaneal spur (08100016) Calcaneal spur (726.73) Active confirmed Encounters Encounter Location Date Provider Diagnosis [facility] [address] [place] [address] 12/24[facility]24 [facility] [place] [address] 12/25/2024 Karen Garces [facility] [place] [address] [place] [address] 01/01/2025 Karen Garces Plan Of Treatment Pending Test Test Name Order Date X ray : Foot, left 2V 12/24/2014 X ray : Foot, right 2V 12/24/2014 Insurance Providers Payer Name Payer Address Payer Phone Subscriber Number Group Number Insured Name Patient Relationship to Insured Coverage Start Date Coverage End Date [facility] [id number] [place] [id number] Erika Melchor Self - patient is the insured Medical (General) History Medical History History ICD Code Arthritis Back,Hip,and Knee pain Cholesterol Cataracts Sciatica Sinus conditions Measles Mumps Chicken pox Joint implants/screws Transfusions Surgical History Surgery Date(Month/Year) carpal tunnel surgery 2009, 2010 knee surgery, left 2013 knee surgery, right 2012 cataract surgery 2006
== END 2025-04-14 10:59 | disposition home or self-care (01) ==
LOC: HO.HCS 10:33
PROVIDERS: PCP Internal Medicine; Visit Provider Internal Medicine Cardiovascular Disease
DX: I48.0 Paroxysmal atrial fibrillation (principal); Z95.0 Presence of cardiac pacemaker; I47.20 Ventricular tachycardia, unspecified
CPT/HCPCS: 93280; 99214

== ENCOUNTER → 2025-04-14 10:32 | Outpatient (BNVA) | payer MEDICARE, SELFPAY | PROVIDERS: PCP Internal Medicine; Visit Provider Internal Medicine Cardiovascular Disease | DX: I48.0 Paroxysmal atrial fibrillation (principal); I47.20 Ventricular tachycardia, unspecified; R60.0 Localized edema; Z79.899 Other long term (current) drug therapy; Z79.01 Long term (current) use of anticoagulants; Z95.0 Presence of cardiac pacemaker | CPT/HCPCS: 93280; 99212 ==